=== PATIENT | female | born 1945 | race African-American/Black ===

== ENCOUNTER 2023-10-05 14:01 | Outpatient (AMB) | payer MEDICARE, SELFPAY ==
[2023-10-05 14:35] VITALS: BP 130/60; PULSE 85; O2SAT 98; BMI 43.7
--- NOTE | 2023-10-05 14:35 | HO.NEPHOV ---
Vital Signs 10/05/23 14:35 Height 5 ft 5 in Weight 262 lb 8 oz BMI 43.7 BP 130/60 Blood Pressure Location Lt brachial Position Sitting Pulse 85 Pulse Source Pulse Oximeter Pulse Oximetry (%) 98 Oxygen Delivery Method Room Air Intake Visit Reasons: CKD Scruff Worker Required: No Accompanied by: Self / Same As Patient Allergies No Known Allergies Allergy (Verified 10/05/23 14:00) HPI Comments Details: I had the pleasure of seeing Liana in follow up of her CKD, hypertension, anemia of Chronic kidney disease as well as secondary hyperparathyroidism. She has H/O high BMI but her weight has been stable. She claims to be compliant with her medications. She is not a diabetic. Her BP has been at goal. She denies any uremic symptoms, edema or orthostatic symptoms. She has no CP, SOB, PND, orthopnea, pedal edema. She does not take any excessive NSAID's. She has no new systemic complaints. [facility] Medical History (Updated 10/25/23 @ 17:05 by Roshan Elizalde MD) Hypertension Anemia in chronic kidney disease Chronic kidney disease, stage 3b Surgical History (Updated 10/05/23 @ 14:39 by Brianna Prieto MA) History of hysterectomy Family History (Updated 10/05/23 @ 14:40 by Brianna Prieto MA) Mother Heart disease Social History (Updated 10/05/23 @ 14:39 by Brianna Prieto MA) Alcohol intake: never Patient Tobacco Use Status: Never used Tobacco Physical Exam Vital Signs: Last Vital Signs Pulse 85 10/05/23 14:35 BP 130/60 10/05/23 14:35 Pulse Ox 98 10/05/23 14:35 Oxygen Delivery Method Room Air 10/05/23 14:35 BMI result Body Mass Index 43.7 Const General: comfortable and no acute distress Orientation/consciousness: patient oriented x3 HEENT Head: Yes normocephalic Mouth: Normal oral and palatal mucosa present Eyes EOM: EOMs intact bilaterally Neck Neck: Yes supple Resp Auscultation: clear to auscultation bilaterally Cardio Jugular venous distension: no JVD Rate: regular rate GI Palpation (GI): Soft to palpation Auscultation: normal bowel sounds General: Yes no CVA tenderness Back/Spine/Pelvis Back: no CVA tenderness Skin General skin exam: no rashes or lesions noted Neuro General: patient oriented x3 and moves all extremities Extrem General: Yes no pedal edema Results Reviewed Nephrology Results: Hgb 11.4 g/dl (12.0-16.0) L 10/05/23 WBC 11.5 X10*3/uL (4.8-10.8) H 10/05/23 Plt Count 332 X10*3/uL (160-400) 10/05/23 Sodium 137 mmol/L (135-145) 10/05/23 Potassium 3.7 mmol/L (3.3-5.1) 10/05/23 Chloride 106 mmol/L (96-108) 10/05/23 Carbon Dioxide 22 mmol/L (22-29) 10/05/23 BUN 16 mg/dL (9-16) 10/05/23 Creatinine 1.45 mg/dL (0.5-1.4) H 10/05/23 Calcium 9.5 mg/dL (8.4-10.2) 10/05/23 Phosphorus 2.3 mg/dL (2.7-4.5) L 10/05/23 PTH Intact 158.3 pg/mL (8.7-77.1) H 10/05/23 Assessment & Plan Assessment & Plan (1) Hypertension: Code(s): I10 - Essential (primary) hypertension Category: Medical Qualifiers: Hypertension type: primary hypertension Qualified Code(s): I10 - Essential (primary) hypertension (2) Anemia in chronic kidney disease: Code(s): N18.9 - Chronic kidney disease, unspecified; D63.1 - Anemia in chronic kidney disease Category: Medical Qualifiers: Chronic kidney disease stage: stage 3 (moderate) Chronic kidney disease stage 3 subtype: stage 3b (GFR 30-44) Qualified Code(s): N18.32 - Chronic kidney disease, stage 3b; D63.1 - Anemia in chronic kidney disease (3) Chronic kidney disease, stage 3b: Code(s): N18.32 - Chronic kidney disease, stage 3b Category: Medical (4) Secondary hyperparathyroidism (of renal origin): Code(s): N25.81 - Secondary hyperparathyroidism of renal origin Category: Medical (5) Hyperuricemia: Code(s): E79.0 - Hyperuricemia without signs of inflammatory arthritis and tophaceous disease Category: Medical Plan She has Stage 3 CKD from long standing hypertension on a backdrop of high BMI. Her renal functions are stable. Her BP is at goal. Her volume status is optimal. Her Hb is stable and doesn't warrant EPO. Her serum calcium is stable. She is on activated Vitamin D.She is on allopurinol which she is tolerating very well. I did not make any medications at this visit. I encouraged her to maintain good hydration and minimize NSAID's. I ordered follow up blood work and answered all questions. Further management is pending evolving data. F/U appointment given Orders: Orders Complete Blood Count Auto Diff 10/05/23 I10 - Essential (primary) hypertension, N18.9 - Chronic kidney disease, unspecified, D63.1 - Anemia in chronic kidney disease, N18.32 - Chronic kidney disease, stage 3b, N25.81 - Secondary hyperparathyroidism of renal origin Calcium 10/05/23 I10 - Essential (primary) hypertension, N18.9 - Chronic kidney disease, unspecified, D63.1 - Anemia in chronic kidney disease, N18.32 - Chronic kidney disease, stage 3b, N25.81 - Secondary hyperparathyroidism of renal origin Phosphorus 10/05/23 I10 - Essential (primary) hypertension, N18.9 - Chronic kidney disease, unspecified, D63.1 - Anemia in chronic kidney disease, N18.32 - Chronic kidney disease, stage 3b, N25.81 - Secondary hyperparathyroidism of renal origin Blood Urea Nitrogen 10/05/23 I10 - Essential (primary) hypertension, N18.9 - Chronic kidney disease, unspecified, D63.1 - Anemia in chronic kidney disease, N18.32 - Chronic kidney disease, stage 3b, N25.81 - Secondary hyperparathyroidism of renal origin Uric Acid 10/05/23 I10 - Essential (primary) hypertension, N18.9 - Chronic kidney disease, unspecified, D63.1 - Anemia in chronic kidney disease, N18.32 - Chronic kidney disease, stage 3b, N25.81 - Secondary hyperparathyroidism of renal origin UA and rflx microscopic 10/05/23 N25.81 - Secondary hyperparathyroidism of renal origin, I10 - Essential (primary) hypertension, N18.9 - Chronic kidney disease, unspecified, D63.1 - Anemia in chronic kidney disease, N18.32 - Chronic kidney disease, stage 3b IRON PROFILE 10/05/23 I10 - Essential (primary) hypertension, N18.9 - Chronic kidney disease, unspecified, D63.1 - Anemia in chronic kidney disease, N18.32 - Chronic kidney disease, stage 3b, N25.81 - Secondary hyperparathyroidism of renal origin Parathyroid Hormone Intact 10/05/23 I10 - Essential (primary) hypertension, N18.9 - Chronic kidney disease, unspecified, D63.1 - Anemia in chronic kidney disease, N18.32 - Chronic kidney disease, stage 3b, N25.81 - Secondary hyperparathyroidism of renal origin Creatinine 10/05/23 I10 - Essential (primary) hypertension, N18.9 - Chronic kidney disease, unspecified, D63.1 - Anemia in chronic kidney disease, N18.32 - Chronic kidney disease, stage 3b, N25.81 - Secondary hyperparathyroidism of renal origin Electrolytes 10/05/23 I10 - Essential (primary) hypertension, N18.9 - Chronic kidney disease, unspecified, D63.1 - Anemia in chronic kidney disease, N18.32 - Chronic kidney disease, stage 3b, N25.81 - Secondary hyperparathyroidism of renal origin Protein Creatinine Ratio, Ur 10/05/23 N25.81 - Secondary hyperparathyroidism of renal origin, I10 - Essential (primary) hypertension, N18.9 - Chronic kidney disease, unspecified, D63.1 - Anemia in chronic kidney disease, N18.32 - Chronic kidney disease, stage 3b
== END 2023-10-05 15:18 | disposition home or self-care (01) ==
PROVIDERS: PCP Hospitalist; Visit Provider Internal Medicine Nephrology
DX: I10 Essential (primary) hypertension (principal); N18.32 Chronic kidney disease, stage 3b; D63.1 Anemia in chronic kidney disease; N25.81 Secondary hyperparathyroidism of renal origin; E79.0 Hyperuricemia without signs of inflammatory arthritis and tophaceous disease
CPT/HCPCS: 99214

== ENCOUNTER → 2023-10-05 14:01 | Outpatient (BNVA) | payer MEDICARE, SELFPAY | PROVIDERS: PCP Hospitalist; Visit Provider Internal Medicine Nephrology ==

== ENCOUNTER 2023-10-05 15:01 | Outpatient (REF) | payer MEDICARE, SELFPAY ==
[2023-10-05 18:01] LABS: MANUAL DIFF FLAG NO
[2023-10-05 18:32] LABS: Anion Gap 13 (12-20); Blood Urea Nitrogen 16 mg/dL (9-16); Calcium 9.5 mg/dL (8.4-10.2); Carbon Dioxide 22 mmol/L (22-29); Chloride 106 mmol/L (96-108); Estimated Glomerular Filt Rate 35; Iron 75 mcg/dL (30-160); Percent Iron Saturation 43 % (15-50); Phosphorus 2.3 mg/dL (2.7-4.5); Potassium 3.7 mmol/L (3.3-5.1); Sodium 137 mmol/L (135-145); Total Iron Binding Capacity 173 mcg/dL (228-428); Unsaturated Iron Binding 98 ug/dL
[2023-10-05 18:38] LABS: Basophils Absolute Auto 0.1 X10*3/uL (0.0-0.2); Eosinophils Absolute Auto 0.3 X10*3/uL (0.0-0.4); Eosinophils Percent Auto 2.3 % (0-4); Hematocrit 36.9 % (37.0-47.0); Hemoglobin 11.4 g/dl (12.0-16.0); Imm Gran Abs Auto 0.03 X10*3/uL (0.00-0.03); Imm Gran Pct Auto 0.3 % (0.0-0.4); Lymphocytes Absolute Auto 2.9 X10*3/uL (1.2-4.9); Lymphocytes Percent Auto 25.1 % (20-40); Mean Corpuscular HGB Conc 30.9 g/dl (31.0-35.0); Mean Corpuscular Hemoglobin 23.5 pg (27.0-33.0); Mean Corpuscular Volume 76.1 fL (80.0-98.0); Mean Platelet Volume 12.4 fL (9.4-12.3); Monocytes Absolute Auto 0.7 X10*3/uL (0.1-1.2); Monocytes Percent Auto 5.7 % (2-11); Neutrophils Absolute Auto 7.6 x10*3/uL (2.0-8.3); Neutrophils Percent Auto 65.6 % (45-73); Platelet Count 332 X10*3/uL (160-400); Red Blood Count 4.85 X10*6/uL (4.20-5.50); Red Cell Distribution Width 15.9 % (11.0-16.0); White Blood Count 11.5 X10*3/uL (4.8-10.8)
[2023-10-05 18:41] LABS: Uric Acid 1.4 mg/dL (2.4-5.7)
[2023-10-05 18:42] LABS: Parathyroid Hormone Intact 158.3 pg/mL (8.7-77.1)
== END 2023-10-05 15:02 | disposition home or self-care (01) ==
LOC: HO.HKASLDS 15:01
PROVIDERS: Visit Provider Internal Medicine Nephrology
DX: I12.9 Hypertensive chronic kidney disease with stage 1 through stage 4 chronic kidney disease, or unspecified chronic kidney disease (principal); N18.32 Chronic kidney disease, stage 3b; D63.1 Anemia in chronic kidney disease; E79.0 Hyperuricemia without signs of inflammatory arthritis and tophaceous disease; N25.81 Secondary hyperparathyroidism of renal origin
CPT/HCPCS: 36415; 80051; 82310; 82565; 83540; 83970; 84100; 84520; 84550; 85025; 99212

== ENCOUNTER 2024-01-18 12:09 | Outpatient (AMB) | payer MEDICARE, SELFPAY ==
[2024-01-18 12:11] VITALS: BP 132/64; PULSE 88; O2SAT 96; BMI 41.9
--- NOTE | 2024-01-18 12:11 | HO.NEPHOV ---
Vital Signs 01/18/24 12:11 Height 5 ft 5 in Weight 252 lb BMI 41.9 BP 132/64 Blood Pressure Location Lt radial Position Sitting Pulse 88 Pulse Source Pulse Oximeter Pulse Oximetry (%) 96 Oxygen Delivery Method Room Air Intake Visit Reasons: 3 month F/U/ Conf Allergies No Known Allergies Allergy (Verified 01/18/24 12:13) HPI Comments Details: I had the pleasure of seeing Liana in follow up of her CKD, hypertension, anemia of Chronic kidney disease as well as secondary hyperparathyroidism. She has H/O high BMI but her weight has been stable. She claims to be compliant with her medications. She is not a diabetic. Her BP has been at goal. She denies any uremic symptoms, edema or orthostatic symptoms. She has no CP, SOB, PND, orthopnea, pedal edema. She does not take any excessive NSAID's. She has no new systemic complaints. [facility] Medical History (Updated 10/25/23 @ 17:05 by Roshan Elizalde MD) Hypertension Anemia in chronic kidney disease Chronic kidney disease, stage 3b Surgical History History of hysterectomy Family History Mother Heart disease Social History Alcohol intake: never Patient Tobacco Use Status: Never used Tobacco Review of Systems Const All systems reviewed & are unremarkable except as noted in HPI and below Physical Exam Vital Signs: Last Vital Signs Pulse 88 01/18/24 12:11 BP 132/64 01/18/24 12:11 Pulse Ox 96 01/18/24 12:11 Oxygen Delivery Method Room Air 01/18/24 12:11 BMI result Body Mass Index 41.9 Const General: comfortable and no acute distress Orientation/consciousness: patient oriented x3 HEENT Head: Yes normocephalic Mouth: Normal oral and palatal mucosa present Eyes EOM: EOMs intact bilaterally Neck Neck: Yes supple Resp Auscultation: clear to auscultation bilaterally Cardio Jugular venous distension: no JVD Rate: regular rate GI Palpation (GI): Soft to palpation Auscultation: normal bowel sounds General: Yes no CVA tenderness Back/Spine/Pelvis Back: no CVA tenderness Skin General skin exam: no rashes or lesions noted Neuro General: patient oriented x3 and moves all extremities Extrem General: Yes no pedal edema Results Reviewed Nephrology Results: Hgb 11.4 g/dl (12.0-16.0) L 10/05/23 WBC 11.5 X10*3/uL (4.8-10.8) H 10/05/23 Plt Count 332 X10*3/uL (160-400) 10/05/23 Sodium 137 mmol/L (135-145) 10/05/23 Potassium 3.7 mmol/L (3.3-5.1) 10/05/23 Chloride 106 mmol/L (96-108) 10/05/23 Carbon Dioxide 22 mmol/L (22-29) 10/05/23 BUN 16 mg/dL (9-16) 10/05/23 Creatinine 1.45 mg/dL (0.5-1.4) H 10/05/23 Calcium 9.5 mg/dL (8.4-10.2) 10/05/23 Phosphorus 2.3 mg/dL (2.7-4.5) L 10/05/23 PTH Intact 158.3 pg/mL (8.7-77.1) H 10/05/23 Assessment & Plan Assessment & Plan (1) Secondary hyperparathyroidism (of renal origin): Code(s): N25.81 - Secondary hyperparathyroidism of renal origin Category: Medical (2) Hyperuricemia: Code(s): E79.0 - Hyperuricemia without signs of inflammatory arthritis and tophaceous disease Category: Medical (3) Hypertension: Code(s): I10 - Essential (primary) hypertension Category: Medical Qualifiers: Hypertension type: primary hypertension Qualified Code(s): I10 - Essential (primary) hypertension (4) Anemia in chronic kidney disease: Code(s): N18.9 - Chronic kidney disease, unspecified; D63.1 - Anemia in chronic kidney disease Category: Medical Qualifiers: Chronic kidney disease stage: stage 3 (moderate) Chronic kidney disease stage 3 subtype: stage 3b (GFR 30-44) Qualified Code(s): N18.32 - Chronic kidney disease, stage 3b; D63.1 - Anemia in chronic kidney disease (5) Chronic kidney disease, stage 3b: Code(s): N18.32 - Chronic kidney disease, stage 3b Category: Medical Plan She has Stage 3 CKD from long standing hypertension on a backdrop of high BMI. Her renal functions are stable. Her BP is at goal. Her volume status is optimal. Her Hb is stable and doesn't warrant EPO. Her serum calcium is stable. She is on activated Vitamin D.She is on allopurinol which she is tolerating very well. I did not make any medications at this visit. I encouraged her to maintain good hydration and minimize NSAID's. I ordered follow up blood work and answered all questions. Further management is pending evolving data. F/U appointment given Orders: Orders Electrolytes Today N18.32 - Chronic kidney disease, stage 3b Calcium Today N18.32 - Chronic kidney disease, stage 3b Creatinine Today N18.32 - Chronic kidney disease, stage 3b Blood Urea Nitrogen Today N18.32 - Chronic kidney disease, stage 3b Coding Level of Care Code Est Pt Level 4 (54971) Diagnoses Secondary hyperparathyroidism (of renal origin) N25.81 Hyperuricemia E79.0 Primary hypertension I10 Hypertension type: primary hypertension Anemia in stage 3b chronic kidney disease N18.32; D63.1 Chronic kidney disease stage: stage 3 (moderate) Chronic kidney disease stage 3 subtype: stage 3b (GFR 30-44) Chronic kidney disease, stage 3b N18.32
== END 2024-01-18 12:29 | disposition home or self-care (01) ==
PROVIDERS: PCP Hospitalist; Visit Provider Internal Medicine Nephrology
DX: N25.81 Secondary hyperparathyroidism of renal origin (principal); E79.0 Hyperuricemia without signs of inflammatory arthritis and tophaceous disease; I10 Essential (primary) hypertension; N18.32 Chronic kidney disease, stage 3b; D63.1 Anemia in chronic kidney disease
CPT/HCPCS: 99214

== ENCOUNTER → 2024-01-18 12:09 | Outpatient (BNVA) | payer MEDICARE, SELFPAY | PROVIDERS: PCP Hospitalist; Visit Provider Internal Medicine Nephrology | DX: I12.9 Hypertensive chronic kidney disease with stage 1 through stage 4 chronic kidney disease, or unspecified chronic kidney disease (principal); N18.32 Chronic kidney disease, stage 3b; D63.1 Anemia in chronic kidney disease; N25.81 Secondary hyperparathyroidism of renal origin; E79.0 Hyperuricemia without signs of inflammatory arthritis and tophaceous disease | CPT/HCPCS: 99212 ==

== ENCOUNTER 2024-05-23 15:34 | Outpatient (AMB) | payer MEDICARE, SELFPAY ==
--- NOTE | 2024-05-23 15:36 | HO.NEPHOV_ITS ---
Vital Signs 05/23/24 15:37 Height 5 ft 5 in Weight 257 lb 2 oz BMI 42.8 BP 132/60 Blood Pressure Location Lt brachial Position Sitting Pulse 71 Pulse Source Pulse Oximeter Pulse Oximetry (%) 96 Oxygen Delivery Method Room Air Intake Visit Reasons: 4 mon follow up-Conf Waste Machine Tender Required: No Accompanied by: Self / Same As Patient Allergies No Known Allergies Allergy (Verified 05/23/24 15:37) HPI Comments Details: Liana was seen in follow up of her CKD, hypertension, anemia of Chronic kidney disease as well as secondary hyperparathyroidism. She is grieving from the loss of her sister in [facility]. She has H/O high BMI but her weight has been stable. She claims to be compliant with her medications. She is not a diabetic. Her BP has been at goal. She denies any uremic symptoms, edema or orthostatic symptoms. She has no CP, SOB, PND, orthopnea, pedal edema. She does not take any excessive NSAID's. She has no new systemic complaints. She has not had any blood work recently. [facility] Medical History (Updated 10/25/23 @ 17:05 by Roshan Elizalde MD) Hypertension Anemia in chronic kidney disease Chronic kidney disease, stage 3b Surgical History History of hysterectomy Family History Mother Heart disease Social History Alcohol intake: never Patient Tobacco Use Status: Never used Tobacco Review of Systems Const All systems reviewed & are unremarkable except as noted in HPI and below Physical Exam Vital Signs: Last Vital Signs Pulse 71 05/23/24 15:37 BP 132/60 05/23/24 15:37 Pulse Ox 96 05/23/24 15:37 Oxygen Delivery Method Room Air 05/23/24 15:37 BMI result Body Mass Index 42.8 Const General: comfortable and no acute distress Orientation/consciousness: patient oriented x3 HEENT Head: Yes normocephalic Mouth: Normal oral and palatal mucosa present Eyes EOM: EOMs intact bilaterally Neck Neck: Yes supple Resp Auscultation: clear to auscultation bilaterally Cardio Jugular venous distension: no JVD Rate: regular rate GI Palpation (GI): Soft to palpation Auscultation: normal bowel sounds General: Yes no CVA tenderness Back/Spine/Pelvis Back: no CVA tenderness Skin General skin exam: no rashes or lesions noted Neuro General: patient oriented x3 and moves all extremities Extrem General: Yes no pedal edema Results Reviewed Nephrology Results: Hgb 11.4 g/dl (12.0-16.0) L 10/05/23 WBC 11.5 X10*3/uL (4.8-10.8) H 10/05/23 Plt Count 332 X10*3/uL (160-400) 10/05/23 Sodium 137 mmol/L (135-145) 10/05/23 Potassium 3.7 mmol/L (3.3-5.1) 10/05/23 Chloride 106 mmol/L (96-108) 10/05/23 Carbon Dioxide 22 mmol/L (22-29) 10/05/23 BUN 16 mg/dL (9-16) 10/05/23 Creatinine 1.45 mg/dL (0.5-1.4) H 10/05/23 Calcium 9.5 mg/dL (8.4-10.2) 10/05/23 Phosphorus 2.3 mg/dL (2.7-4.5) L 10/05/23 PTH Intact 158.3 pg/mL (8.7-77.1) H 10/05/23 Assessment & Plan Assessment & Plan (1) Chronic kidney disease, stage 3b: Code(s): N18.32 - Chronic kidney disease, stage 3b Category: Medical (2) Anemia in chronic kidney disease: Code(s): N18.9 - Chronic kidney disease, unspecified; D63.1 - Anemia in chronic kidney disease Category: Medical Qualifiers: Chronic kidney disease stage: stage 3 (moderate) Chronic kidney disease stage 3 subtype: stage 3b (GFR 30-44) Qualified Code(s): N18.32 - Chronic kidney disease, stage 3b; D63.1 - Anemia in chronic kidney disease (3) Hypertension: Code(s): I10 - Essential (primary) hypertension Category: Medical Qualifiers: Hypertension type: primary hypertension Qualified Code(s): I10 - Essential (primary) hypertension (4) Secondary hyperparathyroidism (of renal origin): Code(s): N25.81 - Secondary hyperparathyroidism of renal origin Category: Medical (5) Hyperuricemia: Code(s): E79.0 - Hyperuricemia without signs of inflammatory arthritis and tophaceous disease Category: Medical Plan She has Stage 3 CKD from long standing hypertension on a backdrop of high BMI. Her renal functions had been stable. She has not had any blood work recently.Her BP is at goal. Her volume status is optimal. Her Hb had been stable and didn't warrant EPO by the last labs. Her serum calcium is stable. She is on activated Vitamin D.She is on allopurinol which she is tolerating very well. I did not make any medications at this visit. I encouraged her to maintain good hydration and minimize NSAID's. I ordered follow up blood work and answered all questions. F/U appointment given Orders: Orders Ferritin Today D63.1 - Anemia in chronic kidney disease, E79.0 - Hyperuricemia without signs of inflammatory arthritis and tophaceous disease, I10 - Essential (primary) hypertension, N18.32 - Chronic kidney disease, stage 3b, N25.81 - Secondary hyperparathyroidism of renal origin IRON PROFILE Today D63.1 - Anemia in chronic kidney disease, E79.0 - Hyperuricemia without signs of inflammatory arthritis and tophaceous disease, I10 - Essential (primary) hypertension, N18.32 - Chronic kidney disease, stage 3b, N25.81 - Secondary hyperparathyroidism of renal origin Creatinine Today D63.1 - Anemia in chronic kidney disease, E79.0 - Hyperuricemia without signs of inflammatory arthritis and tophaceous disease, I10 - Essential (primary) hypertension, N18.32 - Chronic kidney disease, stage 3b, N25.81 - Secondary hyperparathyroidism of renal origin Calcium Today D63.1 - Anemia in chronic kidney disease, E79.0 - Hyperuricemia without signs of inflammatory arthritis and tophaceous disease, I10 - Essential (primary) hypertension, N18.32 - Chronic kidney disease, stage 3b, N25.81 - Secondary hyperparathyroidism of renal origin Vitamin D 25-OH Total Today D63.1 - Anemia in chronic kidney disease, E79.0 - Hyperuricemia without signs of inflammatory arthritis and tophaceous disease, I10 - Essential (primary) hypertension, N18.32 - Chronic kidney disease, stage 3b, N25.81 - Secondary hyperparathyroidism of renal origin Phosphorus Today D63.1 - Anemia in chronic kidney disease, E79.0 - Hyperuricemia without signs of inflammatory arthritis and tophaceous disease, I10 - Essential (primary) hypertension, N18.32 - Chronic kidney disease, stage 3b, N25.81 - Secondary hyperparathyroidism of renal origin Complete Blood Count Auto Diff Today D63.1 - Anemia in chronic kidney disease, E79.0 - Hyperuricemia without signs of inflammatory arthritis and tophaceous disease, I10 - Essential (primary) hypertension, N18.32 - Chronic kidney disease, stage 3b, N25.81 - Secondary hyperparathyroidism of renal origin Blood Urea Nitrogen Today D63.1 - Anemia in chronic kidney disease, E79.0 - Hyperuricemia without signs of inflammatory arthritis and tophaceous disease, I10 - Essential (primary) hypertension, N18.32 - Chronic kidney disease, stage 3b, N25.81 - Secondary hyperparathyroidism of renal origin Electrolytes Today D63.1 - Anemia in chronic kidney disease, E79.0 - Hyperuricemia without signs of inflammatory arthritis and tophaceous disease, I10 - Essential (primary) hypertension, N18.32 - Chronic kidney disease, stage 3b, N25.81 - Secondary hyperparathyroidism of renal origin Parathyroid Hormone Intact Today D63.1 - Anemia in chronic kidney disease, E79.0 - Hyperuricemia without signs of inflammatory arthritis and tophaceous disease, I10 - Essential (primary) hypertension, N18.32 - Chronic kidney dise ase, stage 3b, N25.81 - Secondary hyperparathyroidism of renal origin Coding Level of Care Code Est Pt Level 4 (02084) Diagnoses Chronic kidney disease, stage 3b N18.32 Anemia in stage 3b chronic kidney disease N18.32; D63.1 Chronic kidney disease stage: stage 3 (moderate) Chronic kidney disease stage 3 subtype: stage 3b (GFR 30-44) Primary hypertension I10 Hypertension type: primary hypertension Secondary hyperparathyroidism (of renal origin) N25.81 Hyperuricemia E79.0
[2024-05-23 15:37] VITALS: BP 132/60; PULSE 71; O2SAT 96; BMI 42.8
== END 2024-05-23 16:07 | disposition home or self-care (01) ==
PROVIDERS: PCP Hospitalist; Visit Provider Internal Medicine Nephrology
DX: N18.32 Chronic kidney disease, stage 3b (principal); D63.1 Anemia in chronic kidney disease; I10 Essential (primary) hypertension; N25.81 Secondary hyperparathyroidism of renal origin; E79.0 Hyperuricemia without signs of inflammatory arthritis and tophaceous disease
CPT/HCPCS: 99214

== ENCOUNTER → 2024-05-23 15:34 | Outpatient (BNVA) | payer MEDICARE, SELFPAY | PROVIDERS: PCP Hospitalist; Visit Provider Internal Medicine Nephrology | DX: I12.9 Hypertensive chronic kidney disease with stage 1 through stage 4 chronic kidney disease, or unspecified chronic kidney disease (principal); N18.32 Chronic kidney disease, stage 3b; D63.1 Anemia in chronic kidney disease; N25.81 Secondary hyperparathyroidism of renal origin; E79.0 Hyperuricemia without signs of inflammatory arthritis and tophaceous disease | CPT/HCPCS: 99212 ==

== ENCOUNTER 2024-08-31 14:11 | Outpatient (REF) | payer MEDICARE, SELFPAY ==
--- OUTSIDE RECORDS SUMMARY | 2024-08-31 17:48 | XMS_ITS | Encounter Summary ---
Author Organization [facility] Address [address] [place] [address] Care Team Providers Care Tack Maker Name Role Phone Warner Boyer MD Primary Care Provider Mary Alice Gongora RN Unavailable [phone] Emery Mcintosh Unavailable Unavailable Nguyễn Frederick MD Primary Care Provider [phone] Jessee Garcia MD Primary Care Provider [phone] Nguyễn Frederick MD Primary Care Provider [phone] Encounter Details Date Type Department Care Team (Late st Contact Info) Description 09/30/2015 Scanned Document [address] [phone] Provider, Generic Social History Tobacco [...] on filedocumented in this encounter Care Teams Tack Maker Relationship Specialty Start Date End Date Warner Boyer MD PCP - General Internal Medicine 01/23/15 03/21/19 Nguyễn Frederick MD [address] [place] [address] PCP - General Internal Medicine 03/22/19 03/22/19 Jessee Garcia MD 34 [place] [address] PCP - General Family Medicine 10/24/20 01/28/21 Nguyễn Frederick MD [address] [address] PCP - General Internal Medicine 01/29/21 Mary Alice Roche, RN [address] [address] [facility] Community Pipe Wrapping Machine Operator 02/23/17 05/18/21 Emery Mcintosh [address] [place] [address] Ophthalmology 02/09/19 documented as of this encounter
--- OUTSIDE RECORDS SUMMARY | 2024-08-31 17:48 | XMS_ITS | Encounter Summary ---
Author Organization [facility] Address [address] [place] [address] Care Team Providers Care Print Controller Name Role Phone Warner Boyer MD Primary Care Provider Mary Alice Gongora RN Unavailable Emery Mcintosh Unavailable Unavailable Nguyễn Frederick MD Primary Care Provider [phone] Jessee Garcia MD Primary Care Provider [phone] Nguyễn Frederick MD Primary Care Provider [phone] Encounter Details Date Type Department Care Team (Late st Contact Info) Description 06/03/2015 Scanned Document [address] [phone] Provider, Generic Social History Tobacco Use Types [...] on filedocumented in this encounter Care Teams Print Controller Relationship Specialty Start Date End Date Warner Boyer MD PCP - General Internal Medicine 01/23/15 03/21/19 Nguyễn Frederick MD [address] [place] [address] PCP - General Internal Medicine 03/22/19 03/22/19 Jessee Garcia MD 34 [place] [address] PCP - General Family Medicine 10/24/20 01/28/21 Nguyễn Frederick MD [address] [place] [address] PCP - General Internal Medicine 01/29/21 Mary Alice Roche, DELGADO [address] [address] [facility] Community Range Operator 02/23/17 05/18/21 Emery Mcintosh [address] [place] [address] Ophthalmology 02/09/19 documented as of this encounter
--- OUTSIDE RECORDS SUMMARY | 2024-08-31 17:48 | XMS_ITS | Encounter Summary ---
Author Organization [facility] Address [address] [place] [address] Care Team Providers Care Print Shop Stenographer Name Role Phone Mary Alice Roche RN Unavailable Emery Mcintosh Unavailable Unavailable Jessee Garcia MD Primary Care Provider [phone] Nguyễn Frederick MD Primary Care Provider [phone] Encounter Details Date Type Department Care Team (Late st Contact Info) Description 01/28/2021 Scanned Document [facility] General Surgery [address] [phone] Ced Bustos MD [address] [place] [address] Social History Tobacco Use Types Packs/Day [...] filedocumented in this encounter Care Teams Print Shop Stenographer Relationship Specialty Start Date End Date Jessee Garcia MD [address] [place] [address] PCP - General Family Medicine 10/24/20 01/28/21 Nguyễn Frederick MD [address] [place] [address] PCP - General Internal Medicine 01/29/21 Mary Alice Roche, DELGADO [address] [address] [facility] Community Sprinkler Worker 02/23/17 05/18/21 Emery Mcintosh [address] [place] [address] Ophthalmology 02/09/19 documented as of this encounter
--- OUTSIDE RECORDS SUMMARY | 2024-08-31 17:49 | XMS_ITS | Encounter Summary ---
Author Organization [facility] Address [address] [place] [address] Care Team Providers Care Byproducts Operator Name Role Phone Warner Boyer MD Primary Care Provider Mary Alice Gongora RN Unavailable [phone] Emery Mcintosh Unavailable Unavailable Nguyễn Frederick MD Primary Care Provider [phone] Jessee Garcia MD Primary Care Provider [phone] Nguyễn Frederick MD Primary Care Provider [phone] Encounter Details Date Type Department Care Team (Late st Contact Info) Description 09/28/2017 Scanned Document [address] [phone] Provider, Generic Social History Tobacco [...] on filedocumented in this encounter Care Teams Byproducts Operator Relationship Specialty Start Date End Date Warner Boyer MD PCP - General Internal Medicine 01/23/15 03/21/19 Nguyễn Frederick MD [address] [place] [address] PCP - General Internal Medicine 03/22/19 03/22/19 Jessee Garcia MD [address] [place] [address] PCP - General Family Medicine 10/24/20 01/28/21 Nguyễn Frederick MD [address] [address] PCP - General Internal Medicine 01/29/21 Mary Alice Roche, RN [address] [address] [facility] Community Kitchen Supervisor 02/23/17 05/18/21 Emery Mcintosh [address] [place] [address] Ophthalmology 02/09/19 documented as of this encounter
--- OUTSIDE RECORDS SUMMARY | 2024-08-31 17:49 | XMS_ITS | Encounter Summary ---
Author Organization [facility] Address [address] [place] [address] Care Team Providers Care Unscrambler Name Role Phone Warner Boyer MD Primary Care Provider Mary Alice Gongora RN Unavailable [phone] Emery Mcintosh Unavailable Unavailable Nguyễn Frederick MD Primary Care Provider [phone] Jessee Garcia MD Primary Care Provider [phone] Nguyễn Frederick MD Primary Care Provider Encounter Details Date Type Department Care Team (Late st Contact Info) Description 05/31/2017 Scanned Document [address] [phone] Provider, Generic Social History Tobacco [...] on filedocumented in this encounter Care Teams Unscrambler Relationship Specialty Start Date End Date Warner Boyer MD PCP - General Internal Medicine 01/23/15 03/21/19 Nguyễn Frederick MD [address] [place] [address] PCP - General Internal Medicine 03/22/19 03/22/19 Jessee Garcia MD [address] [place] [address] PCP - General Family Medicine 10/24/20 01/28/21 Nguyễn Frederick MD [address] [address] PCP - General Internal Medicine 01/29/21 Mary Alice Roche, RN [address] [address] [facility] Community Malted Milk Masher 02/23/17 05/18/21 Emery Mcintosh [address] [place] [address] Ophthalmology 02/09/19 documented as of this encounter
--- OUTSIDE RECORDS SUMMARY | 2024-08-31 17:49 | XMS_ITS | Clinical Summary ---
Author Organization [employer] [facility] Address [address] [id number] Care Team Providers Care Testing And Regulating Chief Name Role Phone Nguyễn Frederick MD Primary Care Provider [phone] Allergies No known active allergies Medications Medication Sig Dispensed Refills Start Date End Date Status b complex vitamins capsule Take 1 capsule by mouth. 0 Active Cholecalciferol (DIALYVITE VITAMIN D3 MAX) 51999 units TABS Take by mouth. 0 Active [...] 0 03/04/2018 Active ergocalciferol (VITAMIN D2) capsule 78801 units 0 01/30/2015 Active ferrous sulfate 325 [...] age to complete this topic Care Teams Testing And Regulating Chief Relationship Specialty Start Date End Date Nguyễn Frederick MD [address] [place] [address] PCP - General Internal Medicine 01/02/19
--- OUTSIDE RECORDS SUMMARY | 2024-08-31 17:49 | XMS_ITS | Encounter Summary ---
Author Organization [facility] Address [address] [place] [address] Care Team Providers Care Sales Engineer Engineered Products Name Role Phone Warner Boyer MD Primary Care Provider Mary Alice Gongora RN Unavailable [phone] Emery Mcintosh Unavailable Unavailable Nguyễn Frederick MD Primary Care Provider [phone] eJssee Garcia MD Primary Care Provider [phone] Nguyễn Frederick MD Primary Care Provider [phone] Encounter Details Date Type Department Care Team (Late st Contact Info) Description 10/05/2016 Scanned Document [address] [phone] Provider, Generic Social History Tobacco [...] on filedocumented in this encounter Care Teams Sales Engineer Engineered Products Relationship Specialty Start Date End Date Warner Boyer MD PCP - General Internal Medicine 01/23/15 03/21/19 Nguyễn Frederick MD [address] [place] [address] PCP - General Internal Medicine 03/22/19 03/22/19 Jessee Garcia MD [address] [place] [address] PCP - General Family Medicine 10/24/20 01/28/21 Nguyễn Fredeirck MD [address] [address] PCP - General Internal Medicine 01/29/21 Mary Alice Roche, RN [address] [address] [facility] Community Geoduck Diver 02/23/17 05/18/21 Emery Mcintosh [address] [place] [address] Ophthalmology 02/09/19 documented as of this encounter
--- OUTSIDE RECORDS SUMMARY | 2024-08-31 17:49 | XMS_ITS | Encounter Summary ---
Author Organization [facility] Address [address] [place] [address] Care Team Providers Care Cs Associate Name Role Phone Warner Boyer MD Primary Care Provider Mary Alice Gongora RN Unavailable [phone] Emery Mcintosh Unavailable Unavailable Nguyễn Frederick MD Primary Care Provider [phone] Jessee Garcia MD Primary Care Provider [phone] Nguyễn Frederick MD Primary Care Provider [phone] Encounter Details Date Type Department Care Team (Late st Contact Info) Description 04/27/2016 Scanned Document [address] [phone] Provider, Generic Social History Tobacco [...] on filedocumented in this encounter Care Teams Cs Associate Relationship Specialty Start Date End Date Warner Boyer MD PCP - General Internal Medicine 01/23/15 03/21/19 Nguyễn Frederick MD [address] [place] [address] PCP - General Internal Medicine 03/22/19 03/22/19 Jessee Garcia MD [address] [place] [address] PCP - General Family Medicine 10/24/20 01/28/21 Nguyễn Frederick MD [address] [address] PCP - General Internal Medicine 01/29/21 Mary Alice Roche, RN [address] [address] [facility] Community Speech And Hearing Clinic Director 02/23/17 05/18/21 Emery Mcintosh [address] [place] [address] Ophthalmology 02/09/19 documented as of this encounter
--- OUTSIDE RECORDS SUMMARY | 2024-08-31 17:49 | XMS_ITS | Clinical Summary ---
Author Organization [facility] Address [address] [place] [address] Phone Care Team Providers Care Ferris Wheel Operator Name Role Phone Nguyễn Frederick MD Primary Care Provider [phone] Allergies No known active allergies Medications * [...] tablet 11 01/18/2023 Active ergocalciferol 1.25 MG (33866 UT) capsule TAKE ONE CAPSULE BY MOUTH ONCE A MONTH 3 capsule 10 07/08/2023 Active Active Problems Problem Noted Date Diagnosed Date Recurrent and persistent hem aturia with minimal change lesion 07/22/2021 Stage 3b chronic kidney disease 06/16/2021 Hypertension 03/17/2021 History of polyp of colon 12/24/2020 Overview (03/17/2021): Added automatically from request for surgery [id number] 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
--- OUTSIDE RECORDS SUMMARY | 2024-08-31 17:49 | XMS_ITS | Encounter Summary ---
Author Organization [facility] Address [address] [place] [address] Care Team Providers Care See Supervisor Name Role Phone Warner Boyer MD Primary Care Provider Mary Alice Gongora RN Unavailable [phone] Emery Mcintosh Unavailable Unavailable Nguyễn Frederick MD Primary Care Provider [phone] Jessee Garcia MD Primary Care Provider [phone] Nguyễn Frederick MD Primary Care Provider [phone] Reason for Visit * Reason Comments Medication Refill Encounter Details Date Type Department Care Team (Late st Contact Info) Description [address] [place] [phone] Warner Boyer MD Essential hypertension Social History [...] hypertension documented in this encounter Care Teams See Supervisor Relationship Specialty Start Date End Date Warner Boyer MD PCP - General Internal Medicine 01/23/15 03/21/19 Nguyễn Frederick MD [address] [place] [address] PCP - General Internal Medicine 03/22/19 03/22/19 Jessee Garcia MD [address] [place] [address] PCP - General Family Medicine 10/24/20 01/28/21 Nguyễn Frederick MD [address] [place] [address] PCP - General Internal Medicine 01/29/21 Mary Alice Roche, RN [address] [address] [facility] Community Thoracic Surgeon 02/23/17 05/18/21 Emery Mcintosh [address] [place] [address] Ophthalmology 02/09/19 documented as of this encounter
--- OUTSIDE RECORDS SUMMARY | 2024-08-31 17:49 | XMS_ITS | Clinical Summary ---
Author Organization [facility] Address [address] [place] [address] Care Team Providers Care Tower Truck Driver Name Role Phone Emery Mcintosh Unavailable Unavailable Ngyuễn Frederick MD Primary Care Provider [phone] Allergies No known active allergies Medications Medication Sig Dispensed Refills Start Date End Date Status ergocalciferol (VITAMIN D2,DRISDOL) 88011 units Cap 0 01/30/2015 Active traMADol (ULTRAM) [...] 10/12/2016 Active Cholecalciferol (DIALYVITE VITAMIN D3 MAX) 22234 units Tab Take by mouth. Active traMADol [...] tablet 03/30/2018 Active Sodium Sulfate-Mag Sulfate-KCl (Sutab) 5401-623-649 MG TabIndications:Person al history of colonic polyps Take 1 box by mouth 2 (two) times a day. 24 tablet 12/23/2020 Active Active Problems Problem Noted Date Diagnosed Date Personal history of colonic polyps 12/24/2020 Overview (12/24/2020): Added automatically from request for surgery [id number] Lipid disorder 05/26/2016 Encounter for health-related screening [...] standard practice guidelines of the ACR BI-RADS [place]. A reference guide is provided below. BREAST [...] Assessment Tool designed at the National [employer] [place] (NCI), are available to help health professionals [...] 5.9 4.0 - 6.0 % Lot Number [id number] Plastic Welder Pass Pass Blood specimen (specimen) 12/08/2017 8:56 AM EDT Warner Boyer MD POINT OF CARE TEST O [...] LDL-C. Dhruv SS et al. BENJAMIN. 2013;310(19): 0509-0344 (http://education.7fgame.Meta/faq/NPM670) Cholesterol/HDL Ratio 3.4 <5.0 (calc) [facility] [...] Performing Organization Information: ?Site ID: [id number] ?Name: [employer] ?Address: [address] [place] [address], [place] [address] ?Director: Niurka Whitfield MD Warner Boyer MD LAB BLOOD ORDERABLES [facility] [address], [place] [address] * (ABNORMAL) Chem 10 (12/06/2017 11:52 AM EDT) Albumin 4.0 3.6 - 5.1 g/dL [facility] Blood Urea Nitrogen (BUN) 30(H) 7 - 25 mg/dL [facility] Creatinine 2.16(H) 0.60 - 0.93 mg/dL [facility] Comment: For patients >49 years of age, the reference limit for Creatinine is approximately 13% higher for people identified as -[place]ong[place]ian. eGFR Non- 22(L) > OR = 60 [...] Performing Organization Information: ?Site ID: [id number] ?Name: [facility] ?Address: [address] [place] [address], [place] [address] ?Director: Niurka Whitfield MD Warner Boyer MD LAB BLOOD ORDERABLES [facility] [address], [place] [address] * DEXA Bone density-Hip/pelvis/spine w/fx eval (Axial) [...] 10:44 AM 12/23/2015 2:55 PM Care Teams Tower Truck Driver Relationship Specialty Start Date End Date Nguyễn Frederick MD [address] [place] [address] PCP - General Internal Medicine 01/29/21 Emery Mcintosh [address] [place] [address] Ophthalmology 02/09/19
--- OUTSIDE RECORDS SUMMARY | 2024-08-31 17:49 | XMS_ITS | Encounter Summary ---
Author Organization [facility] Address [address] [place] [address] Care Team Providers Care Maintenance Service Dispatcher Name Role Phone Warner Boyer MD Primary Care Provider Mary Alice Gongora RN Unavailable [phone] Emery Mcintosh Unavailable Unavailable Nguyễn Frederick MD Primary Care Provider [phone] Jessee Garcia MD Primary Care Provider [phone] Nguyễn Frederick MD Primary Care Provider [phone] Reason for Visit * Reason Comments Medication Refill Encounter Details Date Type Department Care Team (Late st Contact Info) Description 06/06/[address] [place] [phone] Warner Boyer MD Essential hypertension Social History [...] hypertension documented in this encounter Care Teams Maintenance Service Dispatcher Relationship Specialty Start Date End Date Warner Boyer MD PCP - General Internal Medicine 01/23/15 03/21/19 Nguyễn Frederick MD [address] [place] [address] PCP - General Internal Medicine 03/22/19 03/22/19 Jessee Garcia MD [address] [place] [address] PCP - General Family Medicine 10/24/20 01/28/21 Nguyễn Frederick MD [address] [place] [address] PCP - General Internal Medicine 01/29/21 Mary Alice Roche, RN [address] [address] [facility] Community Audio Visual Aide 02/23/17 05/18/21 Emery Mcintosh [address] [place] [address] Ophthalmology 02/09/19 documented as of this encounter
--- OUTSIDE RECORDS SUMMARY | 2024-08-31 17:49 | XMS_ITS | Encounter Summary ---
Author Organization [facility] Address [address] [place] [address] Care Team Providers Care Massage Therapist Name Role Phone Warner Boyer MD Primary Care Provider Mary Alice Gongora RN Unavailable [phone] Emery Mcintosh Unavailable Unavailable Nguyễn Frederick MD Primary Care Provider Jessee Garcia MD Primary Care Provider [phone] Nguyễn Frederick MD Primary Care Provider [phone] Encounter Details Date Type Department Care Team (Late st Contact Info) Description 01/06/2018 Scanned Document [address] [phone] Provider, Generic Social History [...] on filedocumented in this encounter Care Teams Massage Therapist Relationship Specialty Start Date End Date Warner Boyer MD PCP - General Internal Medicine 01/23/15 03/21/19 Nguyễn Frederick MD [address] [place] [address] PCP - General Internal Medicine 03/22/19 03/22/19 Jessee Garcia MD [address] [place] [address] PCP - General Family Medicine 10/24/20 01/28/21 Nguyễn Frederick MD [address] [address] PCP - General Internal Medicine 01/29/21 Mary Alice Roche, RN [address] [address] [facility] Community Chemical Detection Expert 02/23/17 05/18/21 Emery Mcintosh [address] [place] [address] Ophthalmology 02/09/19 documented as of this encounter
--- OUTSIDE RECORDS SUMMARY | 2024-08-31 17:49 | XMS_ITS | Encounter Summary ---
Author Organization [facility] Address [address] [place] [address] Care Team Providers Care Fifth Hand Name Role Phone Warner Boyer MD Primary Care Provider Mary Alice Gongora RN Unavailable [phone] Emery Mcintosh Unavailable Unavailable Nguyễn Frederick MD Primary Care Provider [phone] Jessee Garcia MD Primary Care Provider [phone] Nguyễn Frederick MD Primary Care Provider [phone] Reason for Visit * Reason Comments Medication Refill Encounter Details Date Type Department Care Team (Late st Contact Info) Description 10/15/[address] [place] [phone] Warner Boyer MD Insomnia Social History Tobacco [...] unspecified documented in this encounter Care Teams Fifth Hand Relationship Specialty Start Date End Date Warner Boyer MD PCP - General Internal Medicine 01/23/15 03/21/19 Nguyễn Frederick MD [address] [place] [address] PCP - General Internal Medicine 03/22/19 03/22/19 Jessee Garcia MD [address] [place] [address] PCP - General Family Medicine 10/24/20 01/28/21 Nguyễn Frederick MD [address] [place] [address] PCP - General Internal Medicine 01/29/21 Mary Alice Roche, DELGADO [address] [address] [facility] Community Certified Hand Therapist 02/23/17 05/18/21 Emery Mcintosh [address] [place] [address] Ophthalmology 02/09/19 documented as of this encounter
--- OUTSIDE RECORDS SUMMARY | 2024-08-31 17:49 | XMS_ITS | Encounter Summary ---
Author Organization [facility] Address [address] [place] [address] Care Team Providers Care Certified Travel Counselor Name Role Phone Warner Boyer MD Primary Care Provider Mary Alice Gongora RN Unavailable [phone] Emery Mcintosh Unavailable Unavailable Nguyễn Frederick MD Primary Care Provider [phone] Jessee Garcia MD Primary Care Provider [phone] Nguyễn Frederick MD Primary Care Provider [phone] Encounter Details Date Type Department Care Team (Late st Contact Info) Description 05/12/2018 Scanned Document [address] [phone] Provider, Generic Social History Tobacco [...] on filedocumented in this encounter Care Teams Certified Travel Counselor Relationship Specialty Start Date End Date Warner Boyer MD PCP - General Internal Medicine 01/23/15 03/21/19 Nguyễn Frederick MD [address] [place] [address] PCP - General Internal Medicine 03/22/19 03/22/19 Jessee Garcia MD [address] [place] [address] PCP - General Family Medicine 10/24/20 01/28/21 Nguyễn Frederick MD [address] [address] PCP - General Internal Medicine 01/29/21 Mary Alice Roche, RN [address] [address] [facility] Community Hotel Staff Member 02/23/17 05/18/21 Emery Mcintosh [address] [place] [address] Ophthalmology 02/09/19 documented as of this encounter
--- OUTSIDE RECORDS SUMMARY | 2024-08-31 17:49 | XMS_ITS | Encounter Summary ---
Author Organization [facility] Address [address] [place] [address] Care Team Providers Care Coat Padder Name Role Phone Warner Boyer MD Primary Care Provider Mary Alice Gongora RN Unavailable Emery Mcintosh Unavailable Unavailable Nguyễn Frederick MD Primary Care Provider [phone] Jessee Garcia MD Primary Care Provider [phone] Nguyễn Frederick MD Primary Care Provider [phone] Encounter Details Date Type Department Care Team (Late st Contact Info) Description 01/13/2016 Scanned Document [address] [phone] Provider, Generic Social History Tobacco Use Types [...] on filedocumented in this encounter Care Teams Coat Padder Relationship Specialty Start Date End Date Warner Boyer MD PCP - General Internal Medicine 01/23/15 03/21/19 Nguyễn Frederick MD [address] [place] [address] PCP - General Internal Medicine 03/22/19 03/22/19 Jessee Garcia MD [address] [place] [address] PCP - General Family Medicine 10/24/20 01/28/21 Nguyễn Frederick MD [address] [place] [address] PCP - General Internal Medicine 01/29/21 Mary Alice Roche, DELG[place]O [address] [address] [facility] Community Go Cart Mechanic 02/23/17 05/18/21 Emery Mcintosh [address] [place] [address] Ophthalmology 02/09/19 documented as of this encounter
[2024-08-31 18:22] LABS: MANUAL DIFF FLAG NO
[2024-08-31 18:28] LABS: Basophils Absolute Auto 0.1 X10*3/uL (0.0-0.2); Basophils Percent Auto 0.8 % (0-2); Eosinophils Absolute Auto 0.3 X10*3/uL (0.0-0.4); Eosinophils Percent Auto 2.5 % (0-4); Hematocrit 35.1 % (37.0-47.0); Hemoglobin 10.6 g/dl (12.0-16.0); Imm Gran Abs Auto 0.06 X10*3/uL (0.00-0.03); Imm Gran Pct Auto 0.5 % (0.0-0.4); Lymphocytes Absolute Auto 1.6 X10*3/uL (1.2-4.9); Lymphocytes Percent Auto 13.8 % (20-40); Mean Corpuscular HGB Conc 30.2 g/dl (31.0-35.0); Mean Corpuscular Hemoglobin 22.8 pg (27.0-33.0); Mean Corpuscular Volume 75.6 fL (80.0-98.0); Mean Platelet Volume 10.9 fL (9.4-12.3); Monocytes Percent Auto 8.5 % (2-11); Neutrophils Absolute Auto 8.7 x10*3/uL (2.0-8.3); Neutrophils Percent Auto 73.9 % (45-73); Platelet Count 308 X10*3/uL (160-400); Red Blood Count 4.64 X10*6/uL (4.20-5.50); Red Cell Distribution Width 16.6 % (11.0-16.0); White Blood Count 11.8 X10*3/uL (4.8-10.8)
[2024-08-31 18:54] LABS: Parathyroid Hormone Intact 137.9 pg/mL (8.7-77.1)
[2024-08-31 18:56] LABS: Anion Gap 13 (12-20); Blood Urea Nitrogen 26 mg/dL (9-16); Calcium 9.5 mg/dL (8.4-10.2); Carbon Dioxide 22 mmol/L (22-29); Chloride 107 mmol/L (96-108); Estimated Glomerular Filt Rate 27; Iron 27 mcg/dL (30-160); Percent Iron Saturation 15 % (15-50); Phosphorus 3.3 mg/dL (2.7-4.5); Potassium 4.2 mmol/L (3.3-5.1); Sodium 138 mmol/L (135-145); Total Iron Binding Capacity 185 mcg/dL (228-428); Unsaturated Iron Binding 158 ug/dL
[2024-08-31 19:02] LABS: Vitamin D 25-OH Total 18.7 ng/mL (>30)
[2024-08-31 19:34] LABS: Ferritin 2216 ng/mL (10-250)
== END 2024-08-31 14:12 | disposition home or self-care (01) ==
LOC: HO.HKASLDS 14:11
PROVIDERS: PCP Hospitalist; Visit Provider Internal Medicine Nephrology
DX: E79.0 Hyperuricemia without signs of inflammatory arthritis and tophaceous disease (principal); N25.81 Secondary hyperparathyroidism of renal origin; I10 Essential (primary) hypertension; N18.32 Chronic kidney disease, stage 3b; D63.1 Anemia in chronic kidney disease
CPT/HCPCS: 36415; 80051; 82306; 82310; 82565; 82728; 83540; 83970; 84100; 84520; 85025; 99212

== ENCOUNTER 2024-08-31 14:11 | Outpatient (AMB) | payer MEDICARE, SELFPAY ==
[2024-08-31 14:21] VITALS: BP 160/60; PULSE 111; O2SAT 97; BMI 42.8
--- NOTE | 2024-08-31 14:21 | HO.NEPHOV_ITS ---
Vital Signs 08/31/24 14:21 Height 5 ft 5 in Weight 257 lb BMI 42.8 BP 160/60 H Blood Pressure Location Rt brachial Position Sitting Pulse 111 H Pulse Source Pulse Oximeter Pulse Oximetry (%) 97 Oxygen Delivery Method Room Air Intake Visit Reasons: Follow up Allergies No Known Allergies Allergy (Verified 08/31/24 14:21) HPI Comments Details: Liana was seen in follow up of her CKD, hypertension, anemia of Chronic kidney disease as well as secondary hyperparathyroidism. She has H/O high BMI but her weight has been stable. She claims to be compliant with her medications. She is not a diabetic. Her BP has been at goal. She denies any uremic symptoms, edema or orthostatic symptoms. She has no CP, SOB, PND, orthopnea, pedal edema. She does not take any excessive NSAID's. She has no new systemic complaints. She has not had any blood work recently. [facility] Medical History (Updated 10/25/23 @ 17:05 by Roshan Elizalde MD) Hypertension Anemia in chronic kidney disease Chronic kidney disease, stage 3b Surgical History History of hysterectomy Family History Mother Heart disease Social History Alcohol intake: never Patient Tobacco Use Status: Never used Tobacco Review of Systems Const All systems reviewed & are unremarkable except as noted in HPI and below Physical Exam Const General: comfortable and no acute distress Orientation/consciousness: patient oriented x3 HEENT Head: Yes normocephalic Mouth: Normal oral and palatal mucosa present Eyes EOM: EOMs intact bilaterally Neck Neck: Yes supple Resp Auscultation: clear to auscultation bilaterally Cardio Jugular venous distension: no JVD Rate: regular rate GI Palpation (GI): Soft to palpation Auscultation: normal bowel sounds General: Yes no CVA tenderness Back/Spine/Pelvis Back: no CVA tenderness Skin General skin exam: no rashes or lesions noted Neuro General: patient oriented x3 and moves all extremities Extrem General: Yes no pedal edema Results Reviewed Nephrology Results: Hgb 11.4 g/dl (12.0-16.0) L 10/05/23 WBC 11.5 X10*3/uL (4.8-10.8) H 10/05/23 Plt Count 332 X10*3/uL (160-400) 10/05/23 Sodium 137 mmol/L (135-145) 10/05/23 Potassium 3.7 mmol/L (3.3-5.1) 10/05/23 Chloride 106 mmol/L (96-108) 10/05/23 Carbon Dioxide 22 mmol/L (22-29) 10/05/23 BUN 16 mg/dL (9-16) 10/05/23 Creatinine 1.45 mg/dL (0.5-1.4) H 10/05/23 Calcium 9.5 mg/dL (8.4-10.2) 10/05/23 Phosphorus 2.3 mg/dL (2.7-4.5) L 10/05/23 PTH Intact 158.3 pg/mL (8.7-77.1) H 10/05/23 Assessment & Plan Assessment & Plan (1) Hyperuricemia: Code(s): E79.0 - Hyperuricemia without signs of inflammatory arthritis and tophaceous disease Category: Medical (2) Secondary hyperparathyroidism (of renal origin): Code(s): N25.81 - Secondary hyperparathyroidism of renal origin Category: Medical (3) Hypertension: Code(s): I10 - Essential (primary) hypertension Category: Medical Qualifiers: Hypertension type: primary hypertension Qualified Code(s): I10 - Essential (primary) hypertension (4) Anemia in chronic kidney disease: Code(s): N18.9 - Chronic kidney disease, unspecified; D63.1 - Anemia in chronic kidney disease Category: Medical Qualifiers: Chronic kidney disease stage: stage 3 (moderate) Chronic kidney disease stage 3 subtype: stage 3b (GFR 30-44) Qualified Code(s): N18.32 - Chronic kidney disease, stage 3b; D63.1 - Anemia in chronic kidney disease (5) Chronic kidney disease, stage 3b: Code(s): N18.32 - Chronic kidney disease, stage 3b Category: Medical Plan She has Stage 3 CKD from long standing hypertension on a backdrop of high BMI. Her renal functions had been stable. She has not had any blood work recently.Her BP is at goal. Her volume status is optimal. Her Hb had been stable and didn't warrant EPO by the last labs. Her serum calcium is stable. She is on activated Vitamin D.She is on allopurinol which she is tolerating very well. I did not make any medications at this visit. I encouraged her to maintain good hydration and minimize NSAID's. I ordered follow up blood work and answered all questions. F/U appointment given Orders: Orders Complete Blood Count Auto Diff 3 Months D63.1 - Anemia in chronic kidney disease, E79.0 - Hyperuricemia without signs of inflammatory arthritis and tophaceous disease, I10 - Essential (primary) hypertension, N18.32 - Chronic kidney disease, stage 3b, N25.81 - Secondary hyperparathyroidism of renal origin Ferritin 3 Months D63.1 - Anemia in chronic kidney disease, E79.0 - Hyperuricemia without signs of inflammatory arthritis and tophaceous disease, I10 - Essential (primary) hypertension, N18.32 - Chronic kidney disease, stage 3b, N25.81 - Secondary hyperparathyroidism of renal origin Electrolytes 3 Months D63.1 - Anemia in chronic kidney disease, E79.0 - Hyperuricemia without signs of inflammatory arthritis and tophaceous disease, I10 - Essential (primary) hypertension, N18.32 - Chronic kidney disease, stage 3b, N25.81 - Secondary hyperparathyroidism of renal origin Creatinine 3 Months D63.1 - Anemia in chronic kidney disease, E79.0 - Hyperuricemia without signs of inflammatory arthritis and tophaceous disease, I10 - Essential (primary) hypertension, N18.32 - Chronic kidney disease, stage 3b, N25.81 - Secondary hyperparathyroidism of renal origin Vitamin D 25-OH Total 3 Months D63.1 - Anemia in chronic kidney disease, E79.0 - Hyperuricemia without signs of inflammatory arthritis and tophaceous disease, I10 - Essential (primary) hypertension, N18.32 - Chronic kidney disease, stage 3b, N25.81 - Secondary hyperparathyroidism of renal origin Parathyroid Hormone Intact 3 Months D63.1 - Anemia in chronic kidney disease, E79.0 - Hyperuricemia without signs of inflammatory arthritis and tophaceous disease, I10 - Essential (primary) hypertension, N18.32 - Chronic kidney disea se, stage 3b, N25.81 - Secondary hyperparathyroidism of renal origin IRON PROFILE 3 Months D63.1 - Anemia in chronic kidney disease, E79.0 - Hyperuricemia without signs of inflammatory arthritis and tophaceous disease, I10 - Essential (primary) hypertension, N18.32 - Chronic kidney disease, stage 3b, N25.81 - Secondary hyperparathyroidism of renal origin Calcium 3 Months D63.1 - Anemia in chronic kidney disease, E79.0 - Hyperuricemia without signs of inflammatory arthritis and tophaceous disease, I10 - Essential (primary) hypertension, N18.32 - Chronic kidney disease, stage 3b, N25.81 - Secondary hyperparathyroidism of renal origin Blood Urea Nitrogen 3 Months D63.1 - Anemia in chronic kidney disease, E79.0 - Hyperuricemia without signs of inflammatory arthritis and tophaceous disease, I10 - Essential (primary) hypertension, N18.32 - Chronic kidney disease, stage 3b, N25.81 - Secondary hyperparathyroidism of renal origin Phosphorus 3 Months D63.1 - Anemia in chronic kidney disease, E79.0 - Hyperuricemia without signs of inflammatory arthritis and tophaceous disease, I10 - Essential (primary) hypertension, N18.32 - Chronic kidney disease, stage 3b, N25.81 - Secondary hyperparathyroidism of renal origin Coding Level of Care Code Est Pt Level 4 (54930) Diagnoses Hyperuricemia E79.0 Secondary hyperparathyroidism (of renal origin) N25.81 Primary hypertension I10 Hypertension type: primary hypertension Anemia in stage 3b chronic kidney disease N18.32; D63.1 Chronic kidney disease stage: stage 3 (moderate) Chronic kidney disease stage 3 subtype: stage 3b (GFR 30-44) Chronic kidney disease, stage 3b N18.32
--- NOTE | 2024-08-31 14:21 | HO.NEPHOV ---
Vital Signs 08/31/24 14:21 Height 5 ft 5 in Weight 257 lb BMI 42.8 BP 160/60 H Blood Pressure Location Rt brachial Position Sitting Pulse 111 H Pulse Source Pulse Oximeter Pulse Oximetry (%) 97 Oxygen Delivery Method Room Air Intake Visit Reasons: Follow up Level Vial Curvature Gauger Required: No Accompanied by: Self / Same As Patient Allergies No Known Allergies Allergy (Verified 08/31/24 14:21) PFSH Medical History (Updated 10/25/23 @ 17:05 by Roshan Elizalde MD) Hypertension Anemia in chronic kidney disease Chronic kidney disease, stage 3b Surgical History History of hysterectomy Family History Mother Heart disease Social History Alcohol intake: never Patient Tobacco Use Status: Never used Tobacco Results Reviewed Nephrology Results: Hgb 11.4 g/dl (12.0-16.0) L 10/05/23 WBC 11.5 X10*3/uL (4.8-10.8) H 10/05/23 Plt Count 332 X10*3/uL (160-400) 10/05/23 Sodium 137 mmol/L (135-145) 10/05/23 Potassium 3.7 mmol/L (3.3-5.1) 10/05/23 Chloride 106 mmol/L (96-108) 10/05/23 Carbon Dioxide 22 mmol/L (22-29) 10/05/23 BUN 16 mg/dL (9-16) 10/05/23 Creatinine 1.45 mg/dL (0.5-1.4) H 10/05/23 Calcium 9.5 mg/dL (8.4-10.2) 10/05/23 Phosphorus 2.3 mg/dL (2.7-4.5) L 10/05/23 PTH Intact 158.3 pg/mL (8.7-77.1) H 10/05/23 Coding
--- OUTSIDE RECORDS SUMMARY | 2024-08-31 17:17 | XMS_ITS | Encounter Summary ---
Author Organization [facility] Address [address] [place] [address] Care Team Providers Care Ocularist Name Role Phone Warner Boyer MD Primary Care Provider Mary Alice Gongora RN Unavailable Emery Mcintosh Unavailable Unavailable Nguyễn Frederick MD Primary Care Provider [phone] Jessee Garcia MD Primary Care Provider [phone] Nguyễn Frederick MD Primary Care Provider [phone] Encounter Details Date Type Department Care Team (Late st Contact Info) Description 06/03/2015 Scanned Document [address] [phone] Provider, Generic Social History Tobacco Use Types Packs/Day Years Used Date Smoking Tobacco: Former Comments:end date unknown Alcohol Use Standard Drinks/Week Comments No 0 (1 standard drink = 0.6 oz pur e alcohol) Sex and Gender Information Value Date Recorded Sex Assigned at Not on file Gender Identity Not on file Sexual Orientation Not on file documented as of this encounter Plan of Treatment Not on file documented as of this encounter Procedures Procedure Name Priority Date/Time Associated Diagnosis Comments ULTRASOUND EXTERNAL RESULT 06/27/2015 documented in this encounter Results * ULTRASOUND EXTERNAL RESULT (06/27/2015) Anatomical Region Laterality Modality Ultrasound Narrative 07/14/2015 11:59 PM EST Ordered by an unspecified provider. Generic Provider IMG US ORDERABLES documented in this encounter Visit Diagnoses Not on filedocumented in this encounter Care Teams Ocularist Relationship Specialty Start Date End Date Warner Boyer MD PCP - General Internal Medicine 01/23/15 03/21/19 Nguyễn Frederick MD [address] [place] [address] PCP - General Internal Medicine 03/22/19 03/22/19 Jessee Garcia MD [address] [place] [address] PCP - General Family Medicine 10/24/20 01/28/21 Nguyễn Frederick MD [address] [place] [address] PCP - General Internal Medicine 01/29/21 Mary Alice Roche, DELGADO [address] [address] [facility] Community Prison Librarian 02/23/17 05/18/21 Emery Mcintosh [address] [place] [address] Ophthalmology 02/09/19 documented as of this encounter
--- OUTSIDE RECORDS SUMMARY | 2024-08-31 17:17 | XMS_ITS ---
Author Organization [facility] Address [address] [facility] [address] [place] [address] Care Team Providers Care Logistics Intern Name Role Phone RAY ROBERTSON Primary Care Provider [phone] REASON FOR VISIT Appt Request/Refill Medications Medication SIG (Take, Route, Fr equency, Duration) Notes Start Date End Date Status Carvedilol 25 MG 1 tablet with food O rally twice a day for 90 days Active Encounters Encounter Location Date Provider Diagnosis [facility] [address] [facility] [address] [place] [address] 07/25/2024 RAY ROBERTSON Essential (primary) hypertension I10 Assessments Encounter Date Diagnosis (ICD Code) Assessment Notes Treatment Notes Treatment Clinical Notes Section Notes 07/25/2024 Essential (primary) hypertension (ICD-10 - I10) Plan Of Treatment Medication Medication Name Sig Start Date Stop Date Notes Carvedilol 25 MG 1 tablet with food O rally twice a day for 90 days Next Appt Details Provider Name:Fuad Harvey, 0 09/01/2024 02:30:00 PM, [address] [facility] [address], [place], [address], Progress Notes * DUANE LINDSEY MDOB:[birth year] (78 yo F)Acc No.[id number]:07/25/2024 Patient:?DUANE LINDSEY :1945???Age:78 Y???Sex:Female Address:[address], [place] [address] * Refills? Refill Carvedilol Tablet, 25 MG, Orally, 180, 1 tablet with food, twice a day, 90 days, Refills=0 * true * Date:? Generated for Stephanie barros/Luci/Bitaitting on:?08/31/2024 05:17 PM EST
--- OUTSIDE RECORDS SUMMARY | 2024-08-31 17:17 | XMS_ITS | Encounter Summary ---
Author Organization [facility] Address [address] [place] [address] Care Team Providers Care Preschool Assistant Principal Name Role Phone Warner Boyer MD Primary Care Provider Mary Alice Gongora RN Unavailable [phone] Emery Mcintosh Unavailable Unavailable Nguyễn Frederick MD Primary Care Provider [phone] Jessee Garcia MD Primary Care Provider [phone] Nguyễn Frederick MD Primary Care Provider [phone] Encounter Details Date Type Department Care Team (Late st Contact Info) Description 09/30/2015 Scanned Document [address] [address] Provider, Generic Social History Tobacco Use Types [...] on file documented as of this encounter Visit Diagnoses Not on filedocumented in this encounter Care Teams Preschool Assistant Principal Relationship Specialty Start Date End Date Warner Boyer MD PCP - General Internal Medicine 01/23/15 03/21/19 Nguyễn Frederick MD [address] [place] [address] PCP - General Internal Medicine 03/22/19 03/22/19 Jessee Garcia MD [address] [place] [address] PCP - General Family Medicine 10/24/20 01/28/21 Nguyễn Frederick MD [address] [address] PCP - General Internal Medicine 01/29/21 Mary Alice Roche, RN [address] [address] [facility] Community Rig Hand 02/23/17 05/18/21 Emery Mcintosh [address] [place] [address] Ophthalmology 02/09/19 documented as of this encounter
--- OUTSIDE RECORDS SUMMARY | 2024-08-31 17:18 | XMS_ITS | Clinical Summary ---
Author Organization [facility] Address [address] [place] [address] Phone Care Team Providers Care Architectural Modeler Name Role Phone Nguyễn Frederick MD Primary Care Provider [phone] Allergies No known active allergies Medications * This document contains information received from the source organization and may not represent a complete record from that organization. allopurinol (ZYLOPRIM) 300 MG tablet Take 1 tablet by mouth 1 (one) time each day Active amitriptyline (ELAVIL) 100 MG tablet Take 1 tablet by mouth at bed time Active atorvastatin (LIPITOR) 10 MG tablet Take 1 tablet by mouth 1 (one) time each day Active calcitriol (ROCALTROL) 0.25 MCG capsule Take 1 capsule by mouth every other day 09/05/2018 Active carvedilol (COREG) 25 MG tablet Take 1 tablet by mouth in the morning and 1 tablet in the evening. 06/05/2022 Active FeroSul 325 (65 Fe) MG tablet TAKE ONE TABLET BY MOUTH TWICE A DAY 60 tablet 11 01/18/2023 Active ergocalciferol 1.25 MG (58403 UT) capsule TAKE ONE CAPSULE BY MOUTH ONCE A MONTH 3 capsule 10 07/08/2023 Active Active Problems Problem Noted Date Diagnosed Date Recurrent and persistent hem aturia with minimal change lesion 07/22/2021 Stage 3b chronic kidney disease 06/16/2021 Hypertension 03/17/2021 History of polyp of colon 12/24/2020 Overview (03/17/2021): Added automatically from request for surgery [id number] 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 Vitamin D deficiency 08/26/2020 Anemia in chronic kidney disease 10/06/2013 Essential hypertension 10/06/2013 Chronic kidney disease, Stage IV (severe) 2013 Resolved Problems Problem Noted Date Diagnosed Date Resolved Date Chronic gouty arthritis 08/26/202011/03 Disorder of skin and/or subcutaneous tissue 08/26/2020 11/25/2020 Mixed hyperlipidemia 08/26/2020 021 Cardiac murmur 08/26/2020 11/25/2020 Shoulder joint pain 08/26/2020 11/26/19 21 Adhesive capsulitis of right shoulder 02/10/2019 11/25/2020 Internal impingement of right shoulder 02/10/2019 11/25/2020 Disorder of lipid metabolism 05/26/2016 11/25/2020 Swelling of limb 06/17/2015 11/25/2020 Arthropathy 10/06/2013 11/25/2020 Congestive heart failure 10/06/2013 Derangement of knee 10/06/2013 11/26/19 21 Gout 10/06/2013 11/25/2020 Obesity 10/06/2013 11/25/2020 Spinal stenosis 10/06/2013 11/25/2020 Type 2 diabetes mellitus 09/25/2013 Immunizations Name Administration Dates Next Due Influenza TIV (IM) 07/05/2013 Family History Medical History Relation Comments Gout Mother Heart disease Mother Hypertension Mother Hypertension Sibling 1 Gout Sibling 2 Stroke Sibling 3 Relation Status Comments Father Mother Sibling 1 Sibling 2 Sibling 3 Social History Tobacco Use Types Packs/Day Years Used Date Smoking Tobacco: Never Smokeless Tobacco: Never Tobacco Cessation:Counseling Given: Not Answered Alcohol Use Standard Drinks/Week Comments No 0 (1 standard drink = 0.6 oz pur e alcohol) Comments Unknown Sex and Gender Information Value Date Recorded Sex Assigned at Not on file Legal Sex Female 5:10 PM EST Gender Identity Not on file Sexual Orientation Not on file Last Filed Vital Signs Vital Sign Reading Time Taken Comments Blood Pressure 134/60 12/17/2022 2:42 PM EDT Pulse 77 12/17/2022 2:42 PM EDT Temperature - - Respiratory Rate - - Oxygen Saturation 95% 03/05/2022 2:57 PM EDT Inhaled Oxygen Concentration - - Weight 132 kg (290 lb 3.2 oz) 12/17/2022 2:42 PM EDT Height 165.1 cm (5' 5 ) 01/16/2020 12:00 PM EDT Body Mass Index 48.29 01/16/2020 12:00 PM EDT Plan of Treatment Health Maintenance Due Date Last Done Comments Pneumococcal Vaccine: 65+ Ye ars (1 of 2 - PCV) 1951 Influenza Vaccine (#1) 2024 07/05/2013 Colorectal Cancer Screening: Colonoscopy Discontinued 01/29/2021 Hepatitis B Vaccine Aged Out No longe r eligible based on patient's age to complete this topic Insurance [employer] MCR ADV PPO ([id number]) [employer] MCR ADV PPO ([id number]) Care Teams Architectural Modeler Relationship Specialty Start Date End Date Nguyễn Frederick MD [address] [place] [phone] PCP - General Internal Medicine 11/25/20
--- OUTSIDE RECORDS SUMMARY | 2024-08-31 17:18 | XMS_ITS | Encounter Summary ---
Author Organization [facility] Address [address] [place] [address] Care Team Providers Care Singeing Torch Operator Name Role Phone Warner Boyer MD Primary Care Provider Mary Alice Gongora RN Unavailable [phone] Emery Mcintosh Unavailable Unavailable Nguyễn Frederick MD Primary Care Provider [phone] Jessee Garcia MD Primary Care Provider [phone] Nguyễn Frederick MD Primary Care Provider [phone] Encounter Details Date Type Department Care Team (Late st Contact Info) Description 10/05/2016 Scanned Document [address] [address] Provider, Generic Social History Tobacco Use Types Packs/Day Years Used Date Smoking Tobacco: Former Smokeless Tobacco: Current Comments:end date unknown Alcohol Use Standard Drinks/Week [...] on filedocumented in this encounter Care Teams Singeing Torch Operator Relationship Specialty Start Date End Date Warner Boyer MD PCP - General Internal Medicine 01/23/15 03/21/19 Nguyễn Frederick MD [address] [place] [address] PCP - General Internal Medicine 03/22/19 03/22/19 Jessee Garcia MD [address] [place] [address] PCP - General Family Medicine 10/24/20 01/28/21 Nguyễn Frederick MD [address] [address] PCP - General Internal Medicine 01/29/21 Mary Alice Roche, RN [address] [address] [facility] Community Senior Systems Software Engineer 02/23/17 05/18/21 Emery Mcintosh [address] [place] [address] Ophthalmology 02/09/19 documented as of this encounter
--- OUTSIDE RECORDS SUMMARY | 2024-08-31 17:18 | XMS_ITS | Patient Health Record ---
Author Organization [facility] Address [address] [facility] [address] [place] [address] Care Team Providers Care Jde Developer Name Role Phone Nguyễn Frederick Primary Care Provider Unavailabl e Allergies No Known Allergies Reason For Referral No Information Medications Medication SIG (Take, Route, Frequency, Duration) Notes Start Date End Date Status Iron 325 (65 Fe) MG 1 tablet Orally Once a day Unknown Vitamin D 50 MCG (1999) 1 tablet Oral ly Once a day Unknown Carvedilol 12.5 MG 1 tablet with food Orally Twice a day Unknown Calcitriol 0.25 MCG 1 capsule Orally Onc e a day Unknown Allopurinol 300 MG 1 tablet Orally Once a day Unknown Atorvastatin Calcium 10 MG 1 tablet Oral ly Once a day Unknown Plan Of Treatment No Information Insurance Providers Payer Name Payer Address Payer Phone Subscriber Number Group Number Insured Name Patient Relationship to Insured Coverage Start Date Coverage End Date [facility] [address] [place] [address] [phone] [id number] Liana Mayes Self - patient is the insured Medical (General) History Medical History History ICD Code hypertension, benign hyperlipidemia Gout chronic kidney disease stage III class III obesity vitamin d deficiency osteoarthritid Surgical History Surgery Date(Month/Year) hysterectomy, total with bilateral salpi boss-oophorectomy (BSO) right ankle surgery bone spur in left shoulder carpal tunnel release in each hand
--- OUTSIDE RECORDS SUMMARY | 2024-08-31 17:18 | XMS_ITS | Patient Health Record ---
Author Organization [facility] Address [address] [place] [address] Care Team Providers Care Mixer Operator Raw Salt Name Role Phone RAY ROBERTSON Primary Care Provider Allergies No Known Allergies Reason For Referral No Information Medications Medication SIG (Take, Route, Frequency, Duration) Notes Start Date End Date Status amLODIPine Besylate 10 MG 1 tablet Orall y Once a day for 30 days 03/23/2023 Active Atorvastatin Calcium 10 MG 1 tablet Oral ly Once a day for 90 days Active Carvedilol 25 MG 1 tablet with food O rally twice a day for 90 days Active Calcitriol 0.25 MCG 1 capsule Orally harsh ry other day for 30 days Active Allopurinol 300 MG 1 tablet Orally Once a day for 90 days Active Diclofenac Sodium 3 % 1 application Exte rnally Twice a day for 30 days 08/19/2022 Active Iron 325 (65 Fe) MG 1 tablet Orally twic e daily Active Immunizations Vaccine Route Administration Date Status Comme nts COVID Moderna Unknown 12/03/2020 Administered COVID Moderna Unknown 01/06/2021 Administered COVID Moderna Unknown 07/23/2021 Administered Social History Tobacco Use: Social History Observation Description Date Details (start date - stop date) Former Smoker NA - NA Tobacco Use/Smoking Question Answer Notes Are you a former smoker How long has it been since you last smoked? > 10 years Alcohol Screen (Audit-C) Question Answer Notes Did you have a drink containing alcohol in the p ast year? No Points 0 Interpretation Negative Problems Problem Type SNOMED Code ICD Code Onset Dates Problem Status W/U Status Risk Notes Problem Vitamin D deficiency (40111272) Vitamin D deficiency, unspecified (E55.9) Active confirmed Problem Morbid obesity (disorder) (706445184) Morbid (severe) obesity due to excess calories (E66.01) Active confirmed Problem Mixed hyperlipidemia (246090492) Mixed hyperlipidemia (E78.2) Active confirmed Problem Essential hypertension (58151063) Essential (primary) hypertension (I10) Active confirmed Problem Disorder of skin AND/OR subcutaneous tissue (03889647) Disorder of the skin and subcutaneous tissue, unspecified (L98.9) Active confirmed Problem Chronic gouty arthritis (18276273) Chronic gout, unspecified, without tophus (tophi) (M1A.9XX0) Active confirmed Problem Pain of right shoulder region (finding) (4414802709) Pain in right shoulder (M25.511) Active confirmed Problem Left side sciatica (428001753317880) Sciatica, left side (M54.32) Active confirmed Problem Chronic kidney disease (359547007) Chronic kidney disease, unspecified (N18.9) Active confirmed Problem Cardiac murmur, unspecified (R01.1) Active confirmed Vital Signs Heart Rate 102 /min 09/23/2023 Temperature 97.4 degrees Fahrenheit 09/23/2023 Blood pressure diastolic 70 mm Hg 09/23/2023 Oximetry 93 % 09/23/2023 Height 64 in 09/23/2023 Blood pressure systolic 162 mm Hg 09/23/2023 Weight 269.9 lbs 09/23/2023 BMI 46.32 kg/m2 09/23/2023 Encounters Encounter Location Date Provider Diagnosis [address] [place] [address] 10/07/2023 RAY ROBERTSON [facility] [address] [facility] [address] [place] [address] 09/23/2023 RAY ROBERTSON Essential (primary) hypertension I10 ; Mixed hyperlipidemia E78.2 ; Chronic gout, unspecified, without tophus (tophi) M1A.9XX0 ; Morbid (severe) obesity due to excess calories E66.01 and Dietary counseling and surveillance Z71.[address] [place] [address] 09/01/2023 RAY ROBERTSON Essential (primary) hypertension I10 [address] [place] [address] 10/13/2023 BELL TINAL [address] [place] [address] 10/19/2023 RAY ROBERTSON Hyperlipidemia, unspecified E78.[address] [place] [address] 01/12/2024 RAY ROBERTSON Chronic kidney disea se, stage 3 (moderate) N18.[address] [place] [address] 06/23/2024 BELL AILYN [address] [place] [address] 07/25/2024 RAY ROBERTSON Essential (primary) hypertension I10 Assessments Encounter Date Diagnosis (ICD Code) Assessment Notes Treatment Notes Treatment Clinical Notes Section Notes 09/01/2023 Essential (primary) hypertension (ICD-10 - I10) 09/23/2023 Mixed hyperlipidemia (ICD-10 - E78.2) Liana is a 77-year-old lady with CKD stage III and she follows up with Dr. Elizalde, hypertension, hyperlipidemia and gout here for follow up. Her blood pressure is running high in the office today. She took her blood pressure pill this morning. Plan is as follows: Hypertension with chronic kidney disease. Blood pressure running high in the office today. Cut back on sodium intake. Advised appropriate hydration, cardio exercises and weight loss. Increase amlodipine to 10 MG and continue Carvedilol 25 MG twice a day. Hyperlipidemia. Last lipid panel within normal limits. Continue Atorvastatin 10 MG at night. 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 She is on Calcitriol. Chronic kidney disease stage 4. She is stable and does not appear to be in volume overload. Advised appropriate hydration. Avoid NSAIDs. She sees Cici Qureshi. Keep blood pressure under control. Gout. Uric acid levels normal. Continue on Allopurinol 300 MG daily. Morbid obesity. She lost 7 lbs since last visit. Advised dietary restrictions and regimental exercise. Goal is to lose 5-6 lbs a month. Blood work reviewed with patient and questions answered. Screening blood work before next appointment. General health concerns discussed with patient. Scribe services used to formulate this note under HIPAA compliance and under [place] law mandated for scribe services. Patient aware of service. Verbal consent and written consent taken from the patient. Patient understands and verbalizes understanding of the scribes services and all questions answered regarding scribes services. Patient agrees to use of scribes services. 09/23/2023 Essential (primary) hypertension (ICD-10 - I10) Liana is a 77-year-old lady with CKD stage III and she follows up with Dr. Elizalde, hypertension, hyperlipidemia and gout here for follow up. Her blood pressure is running high in the office today. She took her blood pressure pill this morning. Plan is as follows: Hypertension with chronic kidney disease. Blood pressure running high in the office today. Cut back on sodium intake. Advised appropriate hydration, cardio exercises and weight loss. Increase amlodipine to 10 MG and continue Carvedilol 25 MG twice a day. Hyperlipidemia. Last lipid panel within normal limits. Continue Atorvastatin 10 MG at night. 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 She is on Calcitriol. Chronic kidney disease stage 4. She is stable and does not appear to be in volume overload. Advised appropriate hydration. Avoid NSAIDs. She sees Cici Qureshi. Keep blood pressure under control. Gout. Uric acid levels normal. Continue on Allopurinol 300 MG daily. Morbid obesity. She lost 7 lbs since last visit. Advised dietary restrictions and regimental exercise. Goal is to lose 5-6 lbs a month. Blood work reviewed with patient and questions answered. Screening blood work before next appointment. General health concerns discussed with patient. Scribe services used to formulate this note under HIPAA compliance and under [place] law mandated for scribe services. Patient aware of service. Verbal consent and written consent taken from the patient. Patient understands and verbalizes understanding of the scribes services and all questions answered regarding scribes services. Patient agrees to use of scribes services. 10/19/2023 Hyperlipidemia, unspecified (ICD-10 - E78.5) 01/12/2024 Chronic kidney disease, stage 3 (moderate) (ICD-10 - N18.3) 07/25/2024 Essential (primary) hypertension (ICD-10 - I10) 09/23/2023 Chronic gout, unspecified, without tophus (tophi) (ICD-10 - M1A.9XX0) Liana is a 77-year-old lady with CKD stage III and she follows up with Dr. Elizalde, hypertension, hyperlipidemia and gout here for follow up. Her blood pressure is running high in the office today. She took her blood pressure pill this morning. Plan is as follows: Hypertension with chronic kidney disease. Blood pressure running high in the office today. Cut back on sodium intake. Advised appropriate hydration, cardio exercises and weight loss. Increase amlodipine to 10 MG and continue Carvedilol 25 MG twice a day. Hyperlipidemia. Last lipid panel within normal limits. Continue Atorvastatin 10 MG at night. 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 She is on Calcitriol. Chronic kidney disease stage 4. She is stable and does not appear to be in volume overload. Advised appropriate hydration. Avoid NSAIDs. She sees Cici Qureshi. Keep blood pressure under control. Gout. Uric acid levels normal. Continue on Allopurinol 300 MG daily. Morbid obesity. She lost 7 lbs since last visit. Advised dietary restrictions and regimental exercise. Goal is to lose 5-6 lbs a month. Blood work reviewed with patient and questions answered. Screening blood work before next appointment. General health concerns discussed with patient. Scribe services used to formulate this note under HIPAA compliance and under [place] law mandated for scribe services. Patient aware of service. Verbal consent and written consent taken from the patient. Patient understands and verbalizes understanding of the scribes services and all questions answered regarding scribes services. Patient agrees to use of scribes services. 09/23/2023 Morbid (severe) obesity due to excess calories (ICD-10 - E66.01) Liana is a 77-year-old lady with CKD stage III and she follows up with Dr. Elizalde, hypertension, hyperlipidemia and gout here for follow up. Her blood pressure is running high in the office today. She took her blood pressure pill this morning. Plan is as follows: Hypertension with chronic kidney disease. Blood pressure running high in the office today. Cut back on sodium intake. Advised appropriate hydration, cardio exercises and weight loss. Increase amlodipine to 10 MG and continue Carvedilol 25 MG twice a day. Hyperlipidemia. Last lipid panel within normal limits. Continue Atorvastatin 10 MG at night. 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 She is on Calcitriol. Chronic kidney disease stage 4. She is stable and does not appear to be in volume overload. Advised appropriate hydration. Avoid NSAIDs. She sees Cici Qureshi. Keep blood pressure under control. Gout. Uric acid levels normal. Continue on Allopurinol 300 MG daily. Morbid obesity. She lost 7 lbs since last visit. Advised dietary restrictions and regimental exercise. Goal is to lose 5-6 lbs a month. Blood work reviewed with patient and questions answered. Screening blood work before next appointment. General health concerns discussed with patient. Scribe services used to formulate this note under HIPAA compliance and under [place] law mandated for scribe services. Patient aware of service. Verbal consent and written consent taken from the patient. Patient understands and verbalizes understanding of the scribes services and all questions answered regarding scribes services. Patient agrees to use of scribes services. 09/23/2023 Dietary counseling and surveillance (ICD-10 - Z71.3) Liana is a 77-year-old lady with CKD stage III and she follows up with Dr. Elizalde, hypertension, hyperlipidemia and gout here for follow up. Her blood pressure is running high in the office today. She took her blood pressure pill this morning. Plan is as follows: Hypertension with chronic kidney disease. Blood pressure running high in the office today. Cut back on sodium intake. Advised appropriate hydration, cardio exercises and weight loss. Increase amlodipine to 10 MG and continue Carvedilol 25 MG twice a day. Hyperlipidemia. Last lipid panel within normal limits. Continue Atorvastatin 10 MG at night. 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 She is on Calcitriol. Chronic kidney disease stage 4. She is stable and does not appear to be in volume overload. Advised appropriate hydration. Avoid NSAIDs. She sees Cici Qureshi. Keep blood pressure under control. Gout. Uric acid levels normal. Continue on Allopurinol 300 MG daily. Morbid obesity. She lost 7 lbs since last visit. Advised dietary restrictions and regimental exercise. Goal is to lose 5-6 lbs a month. Blood work reviewed with patient and questions answered. Screening blood work before next appointment. General health concerns discussed with patient. Scribe services used to formulate this note under HIPAA compliance and under [place] law mandated for scribe services. Patient aware of service. Verbal consent and written consent taken from the patient. Patient understands and verbalizes understanding of the scribes services and all questions answered regarding scribes services. Patient agrees to use of scribes services. Plan Of Treatment Pending Test Test Name Order Date X ray : Shoulder, right 12/20/2018 Electrocardiogram (EKG) 08/02/2018 Vitamin D, 25-Hydroxy 08/23/2018 Future Test Test Name Order Date COMPREHENSIVE METABOLIC PANEL 01/20/2022 LIPID PANEL 01/20/2022 MICROALBUMIN, URINE 01/20/2022 T4, FREE 01/20/2022 TSH 01/20/2022 URIC ACID 01/20/2022 MICROALBUMIN, URINE 12/17/2022 TSH 12/17/2022 URIC ACID 12/17/2022 Albumin/Creatinine Ratio,Urine-[id number] Lipid Panel-[id number] 09/23/2023 Comp. Metabolic Panel [id number] 2023 Next Appt Details Provider Name:Fuad Harvey, 0 09/01/2024 02:30:00 PM, [address] [place] [address], [phone], Insurance Providers Payer Name Payer Address Payer Phone Subscriber Number Group Number Insured Name Patient Relationship to Insured Coverage Start Date Coverage End Date [employer] [address] [address] [place] [address] [id number] LIANA LINDSEY Self - patient is the insured Medicare [address] [place] [address] [id number] CÉSARLIANA Self - patient is the insured 0 Medical (General) History Medical History History ICD Code hypertension, benign hyperlipidemia Gout Chronic kidney disease stage III and see Dr Elizalde Class III obesity Vitamin D deficiency Osteoarthritis. She sees Dr. Blas Secondary hypoparathyroidism Surgical History Surgery Date(Month/Year) hysterectomy, total with rajiv ateral salpingo-oophorectomy (BSO) Dr. Yeung right ankle surgery bone spur in left shoulder carpal tunnel release in each hand cataract extraction Hospitalization History Reason Date(Month/Year)
--- OUTSIDE RECORDS SUMMARY | 2024-08-31 17:18 | XMS_ITS | Clinical Summary ---
Author Organization [facility] Address [address] [id number] Care Team Providers Care Sculpture Conservator Name Role Phone Nguyễn Frederick MD Primary Care Provider [phone] Allergies No known active allergies Medications Medication Sig Dispensed Refills Start Date End Date Status b complex vitamins capsule Take 1 capsule by mouth. 0 Active Cholecalciferol (DIALYVITE VITAMIN D3 MAX) 43839 units TABS Take by mouth. 0 Active fluorometholone (FML) 0.1 % ophthalmic suspension Apply 1 drop to eye. 0 10/12/2016 Active allopurinol (ZYLOPRIM) 300 MG tablet TAKE 1 TABLET EVERY DAY. 0 12/20/2017 Active amitriptyline (ELAVIL) 100 MG tablet Take 100 mg by mouth. 0 03/30/2018 Active atorvastatin (LIPITOR) tablet 10 mg TAKE ONE TABLET BY MOUTH EVERY DAY 0 12/06/2017 Active calcitRIOL (ROCALTROL) capsule 0.25 mcg TAKE ONE CAPSULE(S) EVERY 48 HOURS 0 10/09/2016 Active carvedilol (COREG) 12.5 MG tablet Take 12.5 mg by mouth. 0 03/04/2018 Active ergocalciferol (VITAMIN D2) capsule 40554 units 0 01/30/2015 Active ferrous sulfate 325 (65 FE) MG tablet Take by mouth. 0 Act natasha traMADol (ULTRAM) 50 MG tablet Take 50 mg by mouth. 0 03/05/2017 Active Lifitegrast (XIIDRA) 5 % SOLN INSTILL 1 DROP IN EACH EYE TWO TIMES A DAY DIRECTED 0 10/15/2016 Active Active Problems Problem Noted Date Diagnosed Date Internal impingement of right shoulder 9 Adhesive capsulitis of right shoulder 02/10/2019 Family History Medical History Relation Name Comments Clotting disorder Mother Heart disease Mother Clotting disorder Sister Relation Name Status Comments Mother Sister Social History Tobacco Use Types Packs/Day Years Used Date Smoking Tobacco: Never Smokeless Tobacco: Never Alcohol Use Standard Drinks/Week Comments No 0 (1 standard drink = 0.6 oz pur e alcohol) Sex and Gender Information Value Date Recorded Sex Assigned at Not on file Gender Identity Not on file Sexual Orientation Not on file Last Filed Vital Signs Vital Sign Reading Time Taken Comments Blood Pressure - - Pulse - - Temperature - - Respiratory Rate - - Oxygen Saturation - - Inhaled Oxygen Concentration - - Weight 122.5 kg (270 lb) 02/10/2019 9:51 AM EDT Height 165.1 cm (5' 5 ) 02/10/2019 9:51 AM EDT Body Mass Index 44.93 02/10/2019 9:51 AM EDT Plan of Treatment Health Maintenance Due Date Last Done Comments Hepatitis C Screening 1945 COVID-19 Vaccine (#1) 06/06/1946 Depression Screening 1958 BMI Counseling 1964 Preventative Health Evaluation 1964 DTap / Tdap / Td (1 - Tdap) 1965 Shingrix-Zoster Vaccine (1 of 2) 1996 Fall Risk Assessment 12/06/2011 Osteoporosis Screening (DEXA Scan) 12/06/2011 Pneumococcal Vaccine (1 of 1 - PCV) 12/06/2011 RSV Adult > 60+ Yrs or Pregn ant (1 - 1-dose 75+ series) 2021 Influenza Vaccine (#1) 2024 07/05/2013 Hepatitis B Vaccines Aged Out No long er eligible based on patient's age to complete this topic RSV Ped < 20 months Aged Out No longe r eligible based on patient's age to complete this topic Care Teams Sculpture Conservator Relationship Specialty Start Date End Date Nguyễn Frederick MD [address] [place] [address] PCP - General Internal Medicine 01/02/19
--- OUTSIDE RECORDS SUMMARY | 2024-08-31 17:18 | XMS_ITS | Clinical Summary ---
Author Organization [facility] Address [address] [place] [address] Care Team Providers Care Building Maintenance Superintendent Name Role Phone Emery Mcintosh Unavailable Unavailable Nguyễn Frederick MD Primary Care Provider [phone] Allergies No known active allergies Medications Medication Sig Dispensed Refills Start Date End Date Status ergocalciferol (VITAMIN D2,DRISDOL) 86550 units Cap 0 01/30/2015 Active traMADol (ULTRAM) 50 MG tabletIndications:Acu te pain of right knee Take 1 tablet (50 mg total) by mouth 3 times daily (every 8 hours) as needed for moderate pain. 30 tablet 0 11/10/2016 Active XIIDRA 5 % Solution INSTILL 1 DROP IN EACH EYE TWO TIMES A DAY DIRECTED 0 10/15/2016 Active fluorometholone (FML LIQUIFILM) 0.1 % ophthalmic suspension INSTILL 1 DROP IN EACH EYE FOUR TIMES A DAY 0 10/15/2016 Active calcitRIOL (ROCALTROL) 0.25 MCG capsule TAKE ONE CAPSULE(S) EVERY 48 HOURS 12 10/09/2016 Active B Complex Vitamins (VITAMIN B COMPLEX PO) Take 1 capsule by mouth. Active ferrous sulfate 325 (65 FE) MG tablet Take by mouth. Act natasha fluorometholone (FML LIQUIFILM) 0.1 % ophthalmic suspension Apply 1 drop to eye. 10/12/2016 Active Cholecalciferol (DIALYVITE VITAMIN D3 MAX) 03519 units Tab Take by mouth. Active traMADol (ULTRAM) 50 MG tabletIndications:Low er extremity pain, diffuse, right Take 1 tablet (50 mg total) by mouth 3 times daily (every 8 hours) as needed for moderate pain. 20 tablet 03/05/2017 Active atorvastatin (LIPITOR) 10 MG tabletIndications:Ess ential hypertension TAKE ONE TABLET BY MOUTH EVERY DAY 90 tablet 3 12/06/2017 Active allopurinol (ZYLOPRIM) 300 MG tabletIndications:Gou t, unspecified cause, unspecified chronicity, unspecified site TAKE 1 TABLET EVERY DAY. 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 60 tablet 5 03/04/2018 Active amitriptyline (ELAVIL) 100 MG tabletIndications:Dep ression, unspecified depression type Take 1 tablet (100 mg total) by mouth nightly. 90 tablet 03/30/2018 Active Sodium Sulfate-Mag Sulfate-KCl (Sutab) 7589-996-195 MG TabIndications:Person al history of colonic polyps Take 1 box by mouth 2 (two) times a day. 24 tablet 12/23/2020 Active Active Problems Problem Noted Date Diagnosed Date Personal history of colonic polyps 12/24/2020 Overview (12/24/2020): Added automatically from request for surgery [id number] Lipid disorder 05/26/2016 Encounter for health-related screening 6 Overview (04/06/2023): Regulatory diagnosis update for 04/04/23 Swelling of extremity, left 06/17/2015 Anemia in chronic kidney disease 10/06/2013 Arthropathy 10/06/2013 Congestive heart failure 10/06/2013 Gout 10/06/2013 Essential hypertension 10/06/2013 Internal derangement of knee 10/06/2013 Obesity 10/06/2013 Spinal stenosis 10/06/2013 Chronic kidney disease, stage IV (severe) 2013 Type II diabetes mellitus with renal manifestati ons 09/25/2013 Resolved Problems Problem Noted Date Diagnosed Date Resolved Date Other and unspecified hyperlipidemia 10/06/2013 05/26/2016 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 05/26/2016 Immunizations Name Administration Dates Next Due Covid-19 mRNA Primary Series Vaccine - Moderna 0.5 mL Full Dose 01/06/2021,12/03/2020 Influenza (AFLURIA/FLUZONE) Inactivated/Split Quadrivalent with Preservative IM 07/05/2013 Influenza Inactivated/Split Preservative Free IM 07/05/9998,07/04/2199 Family History Medical History Relation Name Comments Other Father gunshot wound Heart failure Mother congestive hea rt failure Breast cancer Sister Diabetes Unknown relationship un known Relation Name Status Comments Father Mother Sister Unknown Social History Tobacco Use Types Packs/Day Years Used Date Smoking Tobacco: Former Cigarettes 1 10 1 8 1987 Smokeless Tobacco: Never Tobacco Cessation:Ready to Q uit: No Comments:end date unknown Alcohol Use Standard Drinks/Week Comments No 0 (1 standard drink = 0.6 oz pur e alcohol) Sex and Gender Information Value Date Recorded Sex Assigned at Not on file Gender Identity Not on file Sexual Orientation Not on file Last Filed Vital Signs Vital Sign Reading Time Taken Comments Blood Pressure 108/67 01/29/2021 10:37 AM EDT Pulse 72 01/29/2021 10:37 AM EDT Temperature 35.8 ??C (96.5 ??F) 01/29/2021 7:41 AM ED T Respiratory Rate 20 01/29/2021 10:37 AM EDT Oxygen Saturation 96% 01/29/2021 10:37 AM EDT Inhaled Oxygen Concentration - - Weight 126 kg (278 lb) 01/29/2021 7:41 AM EDT Height 165.1 cm (5' 5 ) 01/29/2021 7:41 AM EDT Body Mass Index 46.26 01/29/2021 7:41 AM EDT Plan of Treatment Health Maintenance Due Date Last Done Comments Hepatitis C Virus Screening 1945 Ophthalmology Exam 1956 DTaP/Tdap/Td Vaccines (1 - Tdap) 1965 Pneumococcal Vaccines 50+ (1 of 2 - PCV) 1965 Zoster (Shingles) Vaccine (1 of 2) 1996 Microalbumin/Creatinine Ratio Urine 07/21/2013 07/21/2012 DXA Bone Density (Females,Ages 65 and older) 12/26/2017 12/27/2015 Hemoglobin A1C 06/09/2018 12/08/2017, 06/0 10/2017, 11/24/2016, Additional history exists Creatinine with GFR 12/06/2018 12/06/2017, 11/24/2016, 05/26/2016, Additional history exists Foot Exam 12/06/2018 12/06/2017 Lipid Panel 12/06/2018 12/06/2017, 05/06, 02/06/2014, Additional history exists RSV Vaccine 60 years and older and Patients (1 - 1-dose 75+ series) 2021 Influenza Vaccine 02/03/2024 05/30/4578, , 07/05/2013 COVID-19 Vaccine ( season) 2024 01/06/2021, 12/03/2020 Mammogram Discontinued 03/22/2019, 02/03, 02/09/2017, Additional history exists Colonoscopy Discontinued 01/29/2021, 12/04 (Previously Completed), 12/23/2015 Hepatitis B Vaccines Aged Out No long er eligible based on patient's age to complete this topic Procedures Procedure Name Priority Date/Time Associated Diagnosis Comments MM MAMMO SCREENING W/ TOMOSYNTHESIS BILATERAL Routine 03/22/2019 2:38 PM EDT Screening for breast cancer POCT GLYCOSYLATED HEMOGLOBIN (HGB A1C) Routine 12/08/2017 8:56 AM EDT Type 2 diabetes mellitus with stage 2 chronic kidney disease, without long-term current use of insulin (HCC) LIPID PANEL WITH NONHDL Routine 12/06/2017 11:52 AM EDT Routine medical exam Hyperlipidemia, unspecified hyperlipidemia type CHEM 10 Routine 12/06/2017 11:52 AM EDT Routine medical exam Fatigue, unspecified type DEXA BONE DENSITY HIP/PELVIS/SPINE W/FX EVAL Routine 12/27/2015 10:25 AM EDT Screening HXWH MICROALBUMIN URINE RANDOM W/CREAT Routine 07/21/2012 10:21 AM EST from Last 3 Months or Most Recently Relevant to Health Maintenance Results * MM Breast tomosynthesis screening-Bilateral (03/22/2019 2:38 PM EDT) Anatomical Region Laterality Modality Breast Bilateral Mammography 03/23/2019 11:0 2 AM EDT Impressions 03/23/2019 11:04 AM EDT There is no mammographic evidence of malignancy. Routine follow-up mammogram in 1 year is recommended. The patient will receive a lay summary of the results of this breast imaging exam. Lay summaries for mammography examinations will also identify the patient's personal breast tissue composition as required by state law. OVERALL ASSESSMENT: BI-RADS 2: Benign findings. RECOMMENDATION: Continued routine screening mammography. *BREAST COMPOSITION Breast composition descriptions are based on the standard practice guidelines of the ACR BI-RADS [place]. A reference guide is provided below. BREAST COMPOSITION CATEGORIES - BI-RADS VERSION V a. The breasts are almost entirely fatty. b. There are scattered areas of fibroglandular density. c. The breasts are heterogeneously dense, which may obscure small masses. d. The breasts are extremely dense, which lowers the sensitivity of mammography. Patients in categories c and d may qualify for supplemental screening exams. Narrative 03/23/2019 11:04 AM EDT EXAMINATION: MM SCREENING WITH TOMOSYNTHESIS, BILATERAL CLINICAL INFORMATION: Screening BREAST CANCER RISK: The lifetime risk of breast cancer based on the Mary Score Model is 7%. ?? Several risk assessment tools, including the Mary Score Model and the Breast Cancer Risk Assessment Tool designed at the National Cancer [place] (NCI), are available to help health professionals estimate a woman's breast cancer risk. These tools give approximate, rather than precise, estimates of breast cancer risk based on different combinations of risk factors and different data sets. Annual screening with breast MRI may be of benefit in women with a Mary Score of 20% or greater. COMPARISON: Prior mammograms, most recent 02/23/2018. TECHNIQUE: Examination was performed using full breast technique. Tomosynthesis views of both breasts were obtained at 1 mm increments. Computer-aided detection was utilized by the radiologist in the interpretation of this exam. FINDINGS: The breasts are almost entirely fatty (composition a). Bilateral breasts: Mildly nodular background parenchymal pattern has not significantly changed from prior exam. No new suspicious masses, calcifications or other abnormalities are seen. ??Compared to the prior exam, there has been no significant interval change. Nguyễn Frederick MD IMG MAMMOGRAPHY [facility] * POCT Glycosylated Hemoglobin (Hb A1C) (12/08/2017 8:56 AM EDT) Hemoglobin A1C 5.9 4.0 - 6.0 % Lot Number [id number] Last Trimmer Pass Pass Blood specimen (specimen) 12/08/2017 8:56 AM EDT aWrner Boyer MD POINT OF CARE TEST O RDERABLES * (ABNORMAL) Lipid panel with nonHDL (12/06/2017 11:52 AM EDT) Cholesterol, Total 124 <200 mg/dL [facility] Cholesterol, HDL 37(L) >50 mg/dL [facility] Triglycerides 197(H) <150 mg/dL [facility] LDL Cholesterol 60 mg/dL (calc) [facility] Comment: Reference range: <100 Desirable range <100 mg/dL for primary prevention; ?? <70 mg/dL for patients with CHD or diabetic patients with > or = 2 CHD risk factors. LDL-C is now calculated using the Dhruv-Ryan calculation, which is a validated novel method providing better accuracy than the Friedewald equation in the estimation of LDL-C. Dhruv SS et al. BENJAMIN. 2013;310(19): 3275-8071 (http://education.[employer]/faq/PIS003) Cholesterol/HDL Ratio 3.4 <5.0 (calc) [facility] Non HDL Chol. (LDL+VLDL) 87 <130 mg/dL (calc) [facility] Comment: For patients with diabetes plus 1 major ASCVD risk factor, treating to a non-HDL-C goal of <100 mg/dL (LDL-C of <70 mg/dL) is considered a therapeutic option. Blood specimen (specimen) Blood specimen / Unknown 12/06/2017 11:52 AM EDT 12/06/2017 11:57 AM EDT Narrative [facility] - 12/07/2017 5:14 AM EDT PT STATED NON FASTING WAS OK PER FASTING:NO FASTING: NO Resulting Agency Comment Performing Organization Information: ?Site ID: [id number] ?Name: [employer] ?Address: [address] [place] [address], [place] [address] ?Director: Niurka Whitfield MD Warner Boyer MD LAB BLOOD ORDERABLES [facility] [address], [place] [address] * (ABNORMAL) Chem 10 (12/06/2017 11:52 AM EDT) Albumin 4.0 3.6 - 5.1 g/dL [facility] Blood Urea Nitrogen (BUN) 30(H) 7 - 25 mg/dL [facility] Creatinine 2.16(H) 0.60 - 0.93 mg/dL [facility] Comment: For patients >49 years of age, the reference limit for Creatinine is approximately 13% higher for people identified as -Stateless. eGFR Non- 22(L) > OR = 60 mL/min/1. 73m2 [facility] eGFR 26(L) > OR = 60 mL/min/1. 73m2 [facility] Glucose 97 65 - 139 mg/dL [facility] Comment: ? Non-fasting reference interval Magnesium 2.0 1.5 - 2.5 mg/dL [facility] Phosphorus 2.8 2.1 - 4.3 mg/dL [facility] Sodium 138 135 - 146 mmol/L [facility] Potassium 4.7 3.5 - 5.3 mmol/L [facility] Chloride 106 98 - 110 mmol/L [facility] CO2 23 20 - 31 mmol/L [facility] Blood specimen (specimen) Blood specimen / Unknown 12/06/2017 11:52 AM EDT 12/06/2017 11:57 AM EDT Narrative [facility] - 12/07/2017 5:14 AM EDT PT STATED NON FASTING WAS OK PER FASTING:NO FASTING: NO Resulting Agency Comment Performing Organization Information: ?Site ID: [id number] ?Name: [facility] ?Address: [address] [place] [address], [place] [address] ?Director: Niurka Whitfield MD Warner Boyer MD LAB BLOOD ORDERABLES [facility] [address], [place] [address] * DEXA Bone density-Hip/pelvis/spine w/fx eval (Axial) (12/27/2015 10:25 AM EDT) Anatomical Region Laterality Modality Digital Radiogra phy Impressions 12/27/2015 3:33 PM EDT IMPRESSION: Based on the lowest T score value of ??-1.6 in femoral neck, the patient is placed in a osteopenia bone density category. There is no significant interval changes noted in the bone mineral density of the lumbar spine or left hip (less than 5%) since the study of 2006. Fracture risk assessment over the next 10 years: Major osteoporotic fracture : 6.0 % Hip fracture : 0.7 % Narrative 12/27/2015 3:33 PM EDT CLINICAL INDICATION: ??Screening for osteoporosis Comparison study: Baseline study of 10/04/2006 BONE DENSITOMETRY: TECHNIQUE: Dual energy x-ray absorptiometry of the lumbar spine and left hip is performed. ??The images are of good technical quality. ??Attached are summary results. LUMBER SPINE: Bone mineral density in the lumbar spine between L1-L4: 1.419 g/cm^2 Current T-score : 2.0. Baseline bone mineral density ?? : 1.391 g/cm^2 LEFT FEMUR: Femur neck bone mineral density : 0.819 g/cm^2. ?? Current T-score : -1.6. Baseline bone mineral density ??: 0.955 g/cm^2 Total femur bone mineral density : 1.009 g/cm^2. ?? Current T-score : 0.0. Baseline bone mineral density : 1.009 g/cm^2 [employer] (WHO) BONE DENSITY CRITERIA FOR OSTEOPOROSIS. *T-score = the standard deviation (SD) from the mean for healthy young adults. Normal: T-score at or above -1 SD Osteopenia: T-score between -1 and -2.5 Osteoporosis: T-score at or below -2.5 Established Osteoporosis: T-score below -2.5 plus fragility fracture. Procedure Note Morteza Cosme MD - 12/27/2015 CLINICAL INDICATION: Screening for osteoporosis Comparison study: Baseline study of 10/04/2006 BONE DENSITOMETRY: TECHNIQUE: Dual energy x-ray absorptiometry of the lumbar spine and lefthip is performed. The images are of good technical quality. Attached aresummary results. LUMBER SPINE: Bone mineral density in the lumbar spine between L1-L4: 1.419 g/cm^2 Current T-score : 2.0. Baseline bone mineral density : 1.391 g/cm^2 LEFT FEMUR: Femur neck bone mineral density : 0.819 g/cm^2. Current T-score : -1.6. Baseline bone mineral density : 0.955 g/cm^2 Total femur bone mineral density : 1.009 g/cm^2. Current T-score : 0.0. Baseline bone mineral density : 1.009 g/cm^2 [employer]GANIZ[employer] (WHO) BONE DENSITY CRITERIA FOR OSTEOPOROSIS. *T-score = the standard deviation (SD) from the mean for healthy youngadults. Normal: T-score at or above -1 SD Osteopenia: T-score between -1 and -2.5 Osteoporosis: T-score at or below -2.5 Established Osteoporosis: T-score below -2.5 plus fragility fracture. IMPRESSION: IMPRESSION: Based on the lowest T score value of -1.6 in femoral neck, the patient isplaced in a osteopenia bone density category. There is no significant interval changes noted in the bone mineral densityof the lumbar spine or left hip (less than 5%) since the study of 2006. Fracture risk assessment over the next 10 years: Major osteoporotic fracture : 6.0 % Hip fracture : 0.7 % Warner Boyer MD IM DXA ORDERABLES * (ABNORMAL) Microalbumin Urine Random W/Creat (07/21/2012 10:21 AM EST) Creatinine, Random Urine 80.00 29.00 - 226 mg/dL [facility] Microalbumin/ Creatinine Ratio see below Unable to perform calculation due to low concentration. 0.00 - 29.00 Ratio [facility] Microalbumin, Urine, Random <12.00(LL) 0.00 - 29.00 mg/L [facility] 07/21/2012 10:2 1 AM EST Conversion Provider HX LAB [facility] from Last 3 Months or Most Recently Relevant to Health Maintenance Advance Directives * Full Code (Latest Code Status on File) Date Activated Date Inactivated Comments 01/29/2021 7:55 AM * Full Code Date Activated Date Inactivated Comments 12/23/2015 10:44 AM 12/23/2015 2:55 PM Care Teams Building Maintenance Superintendent Relationship Specialty Start Date End Date Nguyễn Frederick MD [address] [place] [address] PCP - General Internal Medicine 01/29/21 Emery Mcintosh [address] [place] [address] Ophthalmology 02/09/19
--- OUTSIDE RECORDS SUMMARY | 2024-08-31 17:18 | XMS_ITS | Encounter Summary ---
Author Organization [facility] Address [address] [place] [address] Care Team Providers Care Environmental Manager Name Role Phone Warner Boyer MD Primary Care Provider Mary Alice Gongora RN Unavailable Emery Mcintosh Unavailable Unavailable Nguyễn Frederick MD Primary Care Provider [phone] Jessee Garcia MD Primary Care Provider Nguyễn Frederick MD Primary Care Provider [phone] Reason for Visit * Reason Comments Medication Refill Encounter Details Date Type Department Care Team (Late st Contact Info) Description 06/06/[address] [place] [phone] Warner Boyer MD Essential hypertension Social History Tobacco Use Types Packs/Day Years [...] documented as of this encounter Visit Diagnoses Diagnosis Essential hypertension Unspecified essential hypertension documented in this encounter Care Teams Environmental Manager Relationship Specialty Start Date End Date Warner Boyer MD PCP - General Internal Medicine 01/23/15 03/21/19 Nguyễn Frederick MD [address] [place] [address] PCP - General Internal Medicine 03/22/19 03/22/19 Jessee Garcia MD [address] [place] [address] PCP - General Family Medicine 10/24/20 01/28/21 Nguyễn Frederick MD [address] [place] [address] PCP - General Internal Medicine 01/29/21 Mary Alice Roche, RN [address] [address] [facility] Community Loom Inspector 02/23/17 05/18/21 Emery Mcintosh [address] [place] [address] Ophthalmology 02/09/19 documented as of this encounter
--- OUTSIDE RECORDS SUMMARY | 2024-08-31 17:18 | XMS_ITS | Encounter Summary ---
Author Organization [facility] Address [address] [place] [address] Care Team Providers Care Clinic Business Manager Name Role Phone Warner Boyer MD Primary Care Provider Mary Alice Gongora RN Unavailable [phone] Emery Mcintosh Unavailable Unavailable Nguyễn Frederick MD Primary Care Provider [phone] Jessee Garcia MD Primary Care Provider [phone] Nguyễn Frederick MD Primary Care Provider [phone] Reason for Visit * Reason Comments Medication Refill Encounter Details Date Type Department Care Team (Late st Contact Info) Description 10/15/[address] [place] [phone] Warner Boyer MD Insomnia Social History Tobacco Use Types Packs/Day Years [...] as of this encounter Visit Diagnoses Diagnosis Insomnia Insomnia, unspecified documented in this encounter Care Teams Clinic Business Manager Relationship Specialty Start Date End Date Warner Boyer MD PCP - General Internal Medicine 01/23/15 03/21/19 Nguyễn Frederick MD [address] [place] [address] PCP - General Internal Medicine 03/22/19 03/22/19 Jessee Garcia MD [address] [place] [address] PCP - General Family Medicine 10/24/20 01/28/21 Nguyễn Frederick MD [address] [place] [address] PCP - General Internal Medicine 01/29/21 Mary Alice Roche, DELGADO [address] [address] [facility] Community Gold And Silver Assayer 02/23/17 05/18/21 Emery Mcintosh [address] [place] [address] Ophthalmology 02/09/19 documented as of this encounter
--- OUTSIDE RECORDS SUMMARY | 2024-08-31 17:18 | XMS_ITS | Encounter Summary ---
Author Organization [facility] Address [address] [place] [address] Care Team Providers Care Hotel Sales Manager Name Role Phone Warner Boyer MD Primary Care Provider Mary Alice Gongora RN Unavailable [phone] Emery Mcintosh Unavailable Unavailable Nguyễn Frederick MD Primary Care Provider [phone] Jessee Garcia MD Primary Care Provider [phone] Nguyễn Frederick MD Primary Care Provider [phone] Encounter Details Date Type Department Care Team (Late st Contact Info) Description 05/31/2017 Scanned Document [address] [phone] Provider, Generic Social History Tobacco [...] on filedocumented in this encounter Care Teams Hotel Sales Manager Relationship Specialty Start Date End Date Warner Boyer MD PCP - General Internal Medicine 01/23/15 03/21/19 Nguyễn Frederick MD [address] [place] [address] PCP - General Internal Medicine 03/22/19 03/22/19 Jessee Garcia MD [address] [place] [address] PCP - General Family Medicine 10/24/20 01/28/21 Nguyễn Frederick MD [address] [address] PCP - General Internal Medicine 01/29/21 Mary Alice Roche, RN [address] [address] [facility] Community Service Coordinator Elderly Facility 02/23/17 05/18/21 Emery Mcintosh [address] [place] [address] Ophthalmology 02/09/19 documented as of this encounter
--- OUTSIDE RECORDS SUMMARY | 2024-08-31 17:18 | XMS_ITS ---
Author Organization [facility] Address [address] [facility] [address] [place] [address] Care Team Providers Care Sales Advisory Manager Name Role Phone RAY ROBERTSON Primary Care Provider REASON FOR VISIT Calcitriol refill Medications Medication SIG (Take, Route, Fr equency, Duration) Notes Start Date End Date Status Calcitriol 0.25 MCG 1 capsule Orally ahrsh ry other day for 30 days Active Encounters Encounter Location Date Provider Diagnosis [facility] [address] [facility] [address] [place] [address] 01/12/2024 RAY ROBERTSON Chronic kidney disease, stage 3 (moderate) N18.3 Assessments Encounter Date Diagnosis (ICD Code) Assessment Notes Treatment Notes Treatment Clinical Notes Section Notes 01/12/2024 Chronic kidney disease, stage 3 (moderate) (ICD-10 - N18.3) Plan Of Treatment Medication Medication Name Sig Start Date Stop Date Notes Calcitriol 0.25 MCG 1 capsule Orally harsh ry other day for 30 days Next Appt Details Provider Name:Fuad Harvey, 0 09/01/2024 02:30:00 PM, [address] [facility] [address], [place], [address], Progress Notes * DUANE LINDSEY MDOB:[birth year] (78 yo F)Acc No.[id number]:01/12/2024 Patient:?DUANE LINDSEY :1945???Age:78 Y???Sex:Female Address:[address], [place] [address] * Refills? Refill Calcitriol Capsule, 0.25 MCG, Orally, 12, 1 capsule, every other day, 30 days, Refills=5 * true * Date:? Generated for Stephanie barros/Luci/Bitaitting on:?08/31/2024 05:17 PM EST
--- OUTSIDE RECORDS SUMMARY | 2024-08-31 17:18 | XMS_ITS | Encounter Summary ---
Author Organization [facility] Address [address] [place] [address] Care Team Providers Care Buildings And Grounds Director Name Role Phone Warner Boyer MD Primary Care Provider Mary Alice Gongora RN Unavailable [phone] Emery Mcintosh Unavailable Unavailable Nguyễn Frederick MD Primary Care Provider Jessee Garcia MD Primary Care Provider [phone] Nguyễn Frederick MD Primary Care Provider [phone] Encounter Details Date Type Department Care Team (Late st Contact Info) Description 09/28/2017 Scanned Document [address] [address] Provider, Generic Social History Tobacco [...] on filedocumented in this encounter Care Teams Buildings And Grounds Director Relationship Specialty Start Date End Date Warner Boyer MD PCP - General Internal Medicine 01/23/15 03/21/19 Nguyễn Frederick MD [address] [place] [address] PCP - General Internal Medicine 03/22/19 03/22/19 Jessee Garcia MD [address] [place] [address] PCP - General Family Medicine 10/24/20 01/28/21 Nguyễn Frederick MD [address] [address] PCP - General Internal Medicine 01/29/21 Mary Alice Roche, RN [address] [address] [facility] Community Book Sewer 02/23/17 05/18/21 Emery Mcintosh [address] [place] [address] Ophthalmology 02/09/19 documented as of this encounter
--- OUTSIDE RECORDS SUMMARY | 2024-08-31 17:18 | XMS_ITS | Encounter Summary ---
Author Organization [facility] Address [address] [place] [address] Care Team Providers Care Office Spec Name Role Phone Mary Alice Roche RN Unavailable [phone] Emery Mcintosh Unavailable Unavailable Jessee Garcia MD Primary Care Provider [phone] Nguyễn Frederick MD Primary Care Provider [phone] Encounter Details Date Type Department Care Team (Late st Contact Info) Description 01/28/2021 Scanned Document [facility] General Surgery [address] [phone] Ced Bustos MD [address] [place] [address] Social History Tobacco Use Types Packs/Day Years Used Date Smoking Tobacco: Former Smokeless Tobacco: Never Comments:end date unknown Alcohol Use Standard Drinks/Week Comments No 0 (1 standard drink = 0.6 oz pur e alcohol) Sex and Gender Information Value Date Recorded Sex Assigned at Not on file Gender Identity Not on file Sexual Orientation Not on file COVID-19 Exposure Response Date Recorded In the last month, have you been in contact with someone who was confirmed or suspected to have Coronavirus / COVID-19? No / Unsure 01/29/2021 8:10 AM EDT documented as of this encounter Plan of Treatment Not on file documented as of this encounter Visit Diagnoses Not on filedocumented in this encounter Care Teams Office Spec Relationship Specialty Start Date End Date Jessee Garcia MD [address] [place] [address] PCP - General Family Medicine 10/24/20 01/28/21 Nguyễn Frederick MD [address] [place] [address] PCP - General Internal Medicine 01/29/21 Mary Alice Roche, DELGADO [address] [address] [facility] Community Machinist/Machine Builder 02/23/17 05/18/21 Emery Mcintosh [address] [place] [address] Ophthalmology 02/09/19 documented as of this encounter
--- OUTSIDE RECORDS SUMMARY | 2024-08-31 17:18 | XMS_ITS ---
Author Organization [facility] Address [address] [facility] [address] [place] [address] Care Team Providers Care Garage Door Installer Name Role Phone AILYN BELL Primary Care Provider REASON FOR VISIT refill Medications Medication SIG (Take, Route, Fr equency, Duration) Notes Start Date End Date Status Calcitriol 0.25 MCG 1 capsule Orally harsh ry other day for 30 days Active Allopurinol 300 MG 1 tablet Orally Once a day for 90 days Active Encounters Encounter Location Date Provider Diagnosis [facility] [address] [facility] [address] [place] [address] 06/23/2024 RAY ROBERTSON Plan Of Treatment Medication Medication Name Sig Start Date Stop Date Notes Calcitriol 0.25 MCG 1 capsule Orally harsh ry other day for 30 days Allopurinol 300 MG 1 tablet Orally Once a day for 90 days Next Appt Details Provider Name:Jttorito Harvey, 0 09/01/2024 02:30:00 PM, [address] [address], [place], [address], Progress Notes * DUANE LINDSEY MDOB:[birth year] (78 yo F)Acc No.[id number]:06/23/2024 Patient:?DUANE LINDSEY :1945???Age:78 Y???Sex:Female Address:[address], [place] [address] * Refills? Refill Calcitriol Capsule, 0.25 MCG, Orally, 12, 1 capsule, every other day, 30 days, Refills=5 Refill Allopurinol Tablet, 300 MG, Orally, 90, 1 tablet, Once a day, 90 days, Refills=3 * true * Date:? Generated for Stephanie barros/Luci/Bitaitting on:?08/31/2024 05:18 PM EST
--- OUTSIDE RECORDS SUMMARY | 2024-08-31 17:18 | XMS_ITS | Encounter Summary ---
Author Organization [facility] Address [address] [place] [address] Care Team Providers Care Autocutter Name Role Phone Warner Boyer MD Primary Care Provider Mary Alice Gongora RN Unavailable [phone] Emery Mcintosh Unavailable Unavailable Nguyễn Frederick MD Primary Care Provider [phone] Jessee Garcia MD Primary Care Provider [phone] Nguyễn Frederick MD Primary Care Provider [phone] Encounter Details Date Type Department Care Team (Late st Contact Info) Description 05/12/2018 Scanned Document [address] [phone] Provider, Generic Social History Tobacco [...] on filedocumented in this encounter Care Teams Autocutter Relationship Specialty Start Date End Date Warner Boyer MD PCP - General Internal Medicine 01/23/15 03/21/19 Nguyễn Frederick MD [address] [place] [address] PCP - General Internal Medicine 03/22/19 03/22/19 Jessee Garcia MD [address] [place] [address] PCP - General Family Medicine 10/24/20 01/28/21 Nguyễn Frederick MD [address] [address] PCP - General Internal Medicine 01/29/21 Mary Alice Roche, RN [address] [facility] Community Auto Winder 02/23/17 05/18/21 Emery Mcintosh [address] [place] [address] Ophthalmology 02/09/19 documented as of this encounter
--- OUTSIDE RECORDS SUMMARY | 2024-08-31 17:18 | XMS_ITS | Encounter Summary ---
Author Organization [facility] Address [address] [place] [address] Care Team Providers Care Roll Operator Name Role Phone Warner Boyer MD Primary Care Provider Mary Alice Gongora RN Unavailable [phone] Emery Mcintosh Unavailable Unavailable Nguyễn Frederick MD Primary Care Provider [phone] Jessee Garcia MD Primary Care Provider [phone] Nguyễn Frederick MD Primary Care Provider [phone] Encounter Details Date Type Department Care Team (Late st Contact Info) Description 01/13/2016 Scanned Document [address] [phone] Provider, Generic Social History Tobacco Use Types [...] Procedure Name Priority Date/Time Associated Diagnosis Comments HX OB ULTRASOUND RECORD 01/13/2016 documented in this encounter Results * HX OB ULTRASOUND RECORD (01/13/2016) Narrative 01/13/2016 Ordered by an unspecified provider. Generic Provider HX AMB PROCEDURES documented in this encounter Visit Diagnoses Not on filedocumented in this encounter Care Teams Roll Operator Relationship Specialty Start Date End Date Warner Boyer MD PCP - General Internal Medicine 01/23/15 03/21/19 Nguyễn Frederick MD [address] [place] [address] PCP - General Internal Medicine 03/22/19 03/22/19 Jessee Garcia MD [address] [place] [address] PCP - General Family Medicine 10/24/20 01/28/21 Nguyễn Frederick MD [address] [place] [address] PCP - General Internal Medicine 01/29/21 Mary Alice Roche, DELGADO [address] [place] [address] [address] [facility] Community Res Habilitation Assistant 02/23/17 05/18/21 Emery Mcintosh [address] [place] [address] Ophthalmology 02/09/19 documented as of this encounter
--- OUTSIDE RECORDS SUMMARY | 2024-08-31 17:18 | XMS_ITS | Encounter Summary ---
Author Organization [facility] Address [address] [place] [address] Care Team Providers Care Boiler Tenders Supervisor Name Role Phone Warner Boyer MD Primary Care Provider Mary Alice Gongora RN Unavailable [phone] Emery Mcintosh Unavailable Unavailable Nguyễn Frederick MD Primary Care Provider [phone] Jessee Garcia MD Primary Care Provider [phone] Nguyễn Frederick MD Primary Care Provider [phone] Reason for Visit * Reason Comments Medication Refill Encounter Details Date Type Department Care Team (Late st Contact Info) Description [address] [place] [phone] Warner Boyer MD Essential hypertension Social History [...] hypertension documented in this encounter Care Teams Boiler Tenders Supervisor Relationship Specialty Start Date End Date Warner Boyer MD PCP - General Internal Medicine 01/23/15 03/21/19 Nguyễn Frederick MD [address] [place] [address] PCP - General Internal Medicine 03/22/19 03/22/19 Jessee Garcia MD [address] [place] [address] PCP - General Family Medicine 10/24/20 01/28/21 Nguyễn Frederick MD [address] [place] [address] PCP - General Internal Medicine 01/29/21 Mary Alice Roche, RN [address] [address] [facility] Community Biological Lab Technician 02/23/17 05/18/21 Emery Mcintosh [address] [place] [address] Ophthalmology 02/09/19 documented as of this encounter
--- OUTSIDE RECORDS SUMMARY | 2024-08-31 17:18 | XMS_ITS | Encounter Summary ---
Author Organization [facility] Address [address] [place] [address] Care Team Providers Care Staff Occupational Therapist Name Role Phone Warner Boyer MD Primary Care Provider Mary Alice Gongora RN Unavailable [phone] Emery Mcintosh Unavailable Unavailable Nguyễn Frederick MD Primary Care Provider [phone] Jessee Garcia MD Primary Care Provider [phone] Nguyễn Frederick MD Primary Care Provider [phone] Encounter Details Date Type Department Care Team (Late st Contact Info) Description 01/06/2018 Scanned Document [address] [phone] Provider, Generic Social History Tobacco [...] on filedocumented in this encounter Care Teams Staff Occupational Therapist Relationship Specialty Start Date End Date Warner Boyer MD PCP - General Internal Medicine 01/23/15 03/21/19 Nguyễn Frederick MD [address] [place] [address] PCP - General Internal Medicine 03/22/19 03/22/19 Jessee Garcia MD [address] [place] [address] PCP - General Family Medicine 10/24/20 01/28/21 Nguyễn Frederick MD [address] [address] PCP - General Internal Medicine 01/29/21 Mary Alice Roche, RN [address] [address] [facility] Community Assisted Living Manager 02/23/17 05/18/21 Emery Mcintosh [address] [place] [address] Ophthalmology 02/09/19 documented as of this encounter
--- OUTSIDE RECORDS SUMMARY | 2024-08-31 17:18 | XMS_ITS | Encounter Summary ---
Author Organization [facility] Address [address] [place] [address] Care Team Providers Care Escrow Officer Name Role Phone Warner Boyer MD Primary Care Provider Mary Alice Gongora RN Unavailable [phone] Emery Mcintosh Unavailable Unavailable Nguyễn Frederick MD Primary Care Provider [phone] Jessee Garcia MD Primary Care Provider [phone] Nguyễn Frederick MD Primary Care Provider [phone] Encounter Details Date Type Department Care Team (Late st Contact Info) Description 04/27/2016 Scanned Document [address] [phone] Provider, Generic Social History Tobacco [...] on filedocumented in this encounter Care Teams Escrow Officer Relationship Specialty Start Date End Date Warner Boyer MD PCP - General Internal Medicine 01/23/15 03/21/19 Nguyễn Frederick MD [address] [place] [address] PCP - General Internal Medicine 03/22/19 03/22/19 Jessee Garcia MD [address] [place] [address] PCP - General Family Medicine 10/24/20 01/28/21 Nguyễn Frederick MD [address] [address] PCP - General Internal Medicine 01/29/21 Mary Alice Roche, RN [address] [address] [facility] Community Assistant Printer Floor Covering 02/23/17 05/18/21 Emery Mcintosh [address] [place] [address] Ophthalmology 02/09/19 documented as of this encounter
== END 2024-08-31 14:43 | disposition home or self-care (01) ==
PROVIDERS: PCP Hospitalist; Visit Provider Internal Medicine Nephrology
DX: E79.0 Hyperuricemia without signs of inflammatory arthritis and tophaceous disease (principal); N25.81 Secondary hyperparathyroidism of renal origin; I10 Essential (primary) hypertension; N18.32 Chronic kidney disease, stage 3b; D63.1 Anemia in chronic kidney disease
CPT/HCPCS: 99214

== ENCOUNTER 2024-11-30 11:58 | Outpatient (AMB) | payer MEDICARE, SELFPAY ==
--- OUTSIDE RECORDS SUMMARY | 2024-11-30 12:07 | XMS_ITS | Encounter Summary ---
Author Organization [facility] Address [address] [place] [address] Care Team Providers Care Ballast Cleaning Machine Operator Name Role Phone Warner Boyer MD Primary Care Provider Mary Alice Gongora RN Unavailable Emery Mcintosh Unavailable Unavailable Nguyễn Frederick MD Primary Care Provider [phone] Jessee Garcia MD Primary Care Provider [phone] Nguyễn Frederick MD Primary Care Provider [phone] Encounter Details Date Type Department Care Team (Late st Contact Info) Description 06/03/2015 Scanned Document [address] [phone] Provider, Generic Social History Tobacco Use Types Packs/Day Years Used Date Smoking Tobacco: Former Comments:end date unknown Alcohol Use Standard Drinks/Week Comments No 0 (1 standard drink = 0.6 oz pur e alcohol) Comments Unknown Sex and Gender Information Value Date Recorded Sex Assigned at Not on file Legal Sex Female 2:58 PM EDT Gender Identity Not on file Sexual Orientation Not on file documented as of this encounter Plan of Treatment Not on file documented as of this encounter Procedures Procedure Name Priority Date/Time Associated Diagnosis Comments ULTRASOUND EXTERNAL RESULT 06/27/2015 documented in this encounter Results * ULTRASOUND EXTERNAL RESULT (06/27/2015) Anatomical Region Laterality Modality Ultrasound Narrative 07/14/2015 11:59 PM EST Ordered by an unspecified provider. us Generic Provider IMG US ORDERABLES Final Result documented in this encounter Visit Diagnoses Not on filedocumented in this encounter Care Teams Ballast Cleaning Machine Operator Relationship Specialty Start Date End Date Warner Boyer MD PCP - General Internal Medicine 01/23/15 03/21/19 Nguyễn Frederick MD [address] [place] [address] PCP - General Internal Medicine 03/22/19 03/22/19 Jessee Garcia MD [address] [place] [address] PCP - General Family Medicine 10/24/20 01/28/21 Nguyễn Frederick MD [address] [place] [address] PCP - General Internal Medicine 01/29/21 Mary Alice Roche, DELGADO [address] [address] [facility] Community Parts Consultant 02/23/17 05/18/21 Emery Mcintosh [address] [place] [address] Ophthalmology 02/09/19 documented as of this encounter
--- NOTE | 2024-11-30 12:17 | HO.NEPHOV ---
Vital Signs 11/30/24 12:23 Height 5 ft 5 in Weight 279 lb 6 oz BMI 46.5 BP 134/64 Blood Pressure Location Lt brachial Position Sitting Pulse 86 Pulse Source Pulse Oximeter Pulse Oximetry (%) 97 Oxygen Delivery Method Room Air Intake Visit Reasons: Follow up- # Disconnected Shot Core Drill Operator Helper Required: No Accompanied by: Daughter Allergies No Known Allergies Allergy (Verified 11/30/24 12:23) HPI Comments Details: Liana was seen in follow up of her CKD, hypertension, anemia of Chronic kidney disease as well as secondary hyperparathyroidism. She has H/O high BMI but her weight has been stable. She claims to be compliant with her medications. She is not a diabetic. Her BP has been at goal. She denies any uremic symptoms, edema or orthostatic symptoms. She has no CP, SOB, PND, orthopnea, pedal edema. She does not take any excessive NSAID's. She has been having some questionable hematuria. She is not sure whether its vaginal bleeding. This has been going on for last 2 months but not disclosed to any one for a long time. Her daughter accompanied her during this office visit. [facility] Medical History (Updated 12/02/24 @ 20:39 by Roshan Elizalde MD) Hypertension Anemia in chronic kidney disease Chronic kidney disease, stage 3b Surgical History History of hysterectomy Family History Mother Heart disease Social History Alcohol intake: never Patient Tobacco Use Status: Never used Tobacco Review of Systems Const All systems reviewed & are unremarkable except as noted in HPI and below Physical Exam Vital Signs: Last Vital Signs Pulse 86 11/30/24 12:23 BP 134/64 11/30/24 12:23 Pulse Ox 97 11/30/24 12:23 Oxygen Delivery Method Room Air 11/30/24 12:23 BMI result Body Mass Index 46.5 Const General: comfortable and no acute distress Orientation/consciousness: patient oriented x3 HEENT Head: Yes normocephalic Mouth: Normal oral and palatal mucosa present Eyes EOM: EOMs intact bilaterally Neck Neck: Yes supple Resp Auscultation: clear to auscultation bilaterally Cardio Jugular venous distension: no JVD Rate: regular rate GI Palpation (GI): Soft to palpation Auscultation: normal bowel sounds General: Yes no CVA tenderness Back/Spine/Pelvis Back: no CVA tenderness Skin General skin exam: no rashes or lesions noted Neuro General: patient oriented x3 and moves all extremities Extrem General: Yes no pedal edema Assessment & Plan Assessment & Plan (1) Hematuria: Code(s): R31.9 - Hematuria, unspecified Category: Medical Qualifiers: Hematuria type: gross Qualified Code(s): R31.0 - Gross hematuria (2) Chronic kidney disease, stage 3b: Code(s): N18.32 - Chronic kidney disease, stage 3b Category: Medical (3) Anemia in chronic kidney disease: Code(s): N18.9 - Chronic kidney disease, unspecified; D63.1 - Anemia in chronic kidney disease Category: Medical Qualifiers: Chronic kidney disease stage: stage 3 (moderate) Chronic kidney disease stage 3 subtype: stage 3b (GFR 30-44) Qualified Code(s): N18.32 - Chronic kidney disease, stage 3b; D63.1 - Anemia in chronic kidney disease (4) Hypertension: Code(s): I10 - Essential (primary) hypertension Category: Medical Qualifiers: Hypertension type: primary hypertension Qualified Code(s): I10 - Essential (primary) hypertension (5) Secondary hyperparathyroidism (of renal origin): Code(s): N25.81 - Secondary hyperparathyroidism of renal origin Category: Medical Plan She has Stage 3 CKD from long standing hypertension on a backdrop of high BMI. Her renal functions had been stable. Her BP is at goal. Her volume status is optimal. Her Hb had been stable and doesn't warrant EPO. Her serum calcium had been stable. She is on activated Vitamin D.She is on allopurinol which she is tolerating very well. I did not make any medications at this visit. I encouraged her to maintain good hydration and minimize NSAID's. I ordered blood work and urine studies today along with CT scan. If all these W/U is unyielding, she warrants a Urology consult for cystoscopy and Gynae for pelvic exam. I answered all questions. F/U appointment given Orders: Orders UA and rflx microscopic 11/30/24 R31.9 - Hematuria, unspecified Creatinine 11/30/24 R31.9 - Hematuria, unspecified CT abdomen pelvis wo IV con 11/30/24 R31.9 - Hematuria, unspecified Urine Culture 11/30/24 R31.9 - Hematuria, unspecified Blood Urea Nitrogen 11/30/24 R31.9 - Hematuria, unspecified Electrolytes 11/30/24 R31.9 - Hematuria, unspecified IRON PROFILE 11/30/24 D63.1 - Anemia in chronic kidney disease, I10 - Essential (primary) hypertension, N18.32 - Chronic kidney disease, stage 3b, N25.81 - Secondary hyperparathyroidism of renal origin Parathyroid Hormone Intact 11/30/24 D63.1 - Anemia in chronic kidney disease, I10 - Essential (primary) hypertension, N18.32 - Chronic kidney disease, stage 3b, N25.81 - Secondary hyperparathyroidism of renal origin Vitamin D 25-OH Total 11/30/24 D63.1 - Anemia in chronic kidney disease, I10 - Essential (primary) hypertension, N18.32 - Chronic kidney disease, stage 3b, N25.81 - Secondary hyperparathyroidism of renal origin Coding Level of Care Code Est Pt Level 4 (05244) Diagnoses Gross hematuria R31.0 Hematuria type: gross Chronic kidney disease, stage 3b N18.32 Anemia in stage 3b chronic kidney disease N18.32; D63.1 Chronic kidney disease stage: stage 3 (moderate) Chronic kidney disease stage 3 subtype: stage 3b (GFR 30-44) Primary hypertension I10 Hypertension type: primary hypertension Secondary hyperparathyroidism (of renal origin) N25.81
[2024-11-30 12:23] VITALS: BP 134/64; PULSE 86; O2SAT 97; BMI 46.5
== END 2024-11-30 12:41 | disposition home or self-care (01) ==
LOC: HO.HKAS 11:59
PROVIDERS: PCP Hospitalist; Visit Provider Internal Medicine Nephrology
DX: R31.0 Gross hematuria (principal); N18.32 Chronic kidney disease, stage 3b; D63.1 Anemia in chronic kidney disease; I10 Essential (primary) hypertension; N25.81 Secondary hyperparathyroidism of renal origin
CPT/HCPCS: 99214

== ENCOUNTER → 2024-11-30 11:58 | Outpatient (BNVA) | payer MEDICARE, SELFPAY | PROVIDERS: PCP Hospitalist; Visit Provider Internal Medicine Nephrology | DX: I12.9 Hypertensive chronic kidney disease with stage 1 through stage 4 chronic kidney disease, or unspecified chronic kidney disease (principal); N18.32 Chronic kidney disease, stage 3b; D63.1 Anemia in chronic kidney disease; N25.81 Secondary hyperparathyroidism of renal origin; R31.0 Gross hematuria | CPT/HCPCS: 99212 ==

== ENCOUNTER 2024-12-22 07:34 | Outpatient (REF) | payer MEDICARE, SELFPAY ==
--- NOTE | ~2024-12-22 | CT_ITS ---
EXAMINATION: CT ABDOMEN AND PELVIS WITHOUT CONTRAST CLINICAL INFORMATION: Hematuria. COMPARISON: None available. TECHNIQUE: Multidetector volumetric imaging was performed from the superior aspect of the liver through the pubic symphysis. Sagittal and coronal reformatted images were obtained on the technologist's workstation. This CT examination was performed using dose optimization techniques as appropriate, variously including the following: *Automated exposure control *Adjustment of mA and/or kV according to patient size (this includes techniques or standardized protocols for targeted exams where dose is matched to indication/reason for exam; i.e. extremities or head) *Use of iterative reconstruction technique FINDINGS: LUNG BASES: Minor scarring in both lung bases. Mild cardiomegaly. No effusions. Small to moderate sized hiatus hernia at the GE junction. LIVER, GALLBLADDER, AND BILIARY TREE: The liver is normal in size, shape, and attenuation . No biliary ductal dilatation is present. There is a vague 1.4 cm low attenuating lesion in segment 8, indeterminate. (Series 3, image 28). No additional focal liver abnormality. Gallbladder demonstrates small gravel size layering gallstones. It is otherwise normal in CT appearance. PANCREAS: Unremarkable. SPLEEN: Unremarkable. ADRENAL GLANDS: Unremarkable. KIDNEYS AND URETERS: The kidneys are normal in size, shape, and attenuation. No hydronephrosis or hydroureter. There is a 2 mm nonobstructing calculus in the midpole posterior left kidney. No additional calculi. No perinephric stranding. BLADDER: Unremarkable. GASTROINTESTINAL TRACT: I hiatus hernia at the GE junction. The stomach, duodenum appear normal. Small bowel is normal in caliber and course without abnormality. Normal appendix. The colon is normal in course and caliber. No wall thickening or inflammation. No rectal abnormality. ABDOMINAL WALL: Abdominal pannus. No hernia noted. LYMPH NODES: No abnormal lymphadenopathy. VASCULAR: Moderate atheromatous calcification of the aorta and iliac arteries, without aneurysm. PELVIC VISCERA: There has been a hysterectomy. There is a left ovarian cyst measuring 3.4 x 2.4 cm (series 3, image 79). The right ovary is normal. OSSEOUS STRUCTURES: No suspicious lytic or blastic bone lesions. Moderate degenerative changes throughout the spine. Mild degenerative changes of both hip joints. CT/CT abdomen pelvis wo IV con IMPRESSION: 1. There is a 2 mm nonobstructing calculus in the left kidney. No additional renal calculi. No urological obstruction. 2. The ureters and urinary bladder appear normal. 3. Indeterminate 1.4 cm oval lesion in segment 8 of the liver. Recommend MRI or multiphasic CT for further characterization. 4. Left ovarian 3.4 x 2.4 cm simple appearing cyst. 5. Cardiomegaly. 6. Additional ancillary findings as discussed in the body of the report. Electronically signed by: Nemesio Panchal MD 12/22/2024 08:28 AM EDT
--- OUTSIDE RECORDS SUMMARY | 2024-12-22 07:36 | XMS_ITS | Encounter Summary ---
Author Organization [facility] Address [address] [place] [address] Care Team Providers Care Shellfish Grower Name Role Phone Warner Boyer MD Primary Care Provider Mary Alice Gongora RN Unavailable Emery Mcintosh Unavailable Unavailable Nguyễn Frederick MD Primary Care Provider [phone] Jessee Garcia MD Primary Care Provider [phone] Nguyễn Frederick MD Primary Care Provider [phone] Encounter Details Date Type Department Care Team (Late st Contact Info) Description 06/03/2015 Scanned Document [address] [phone] Provider, Generic Social History Tobacco Use Types [...] on filedocumented in this encounter Care Teams Shellfish Grower Relationship Specialty Start Date End Date Warner Boyer MD PCP - General Internal Medicine 01/23/15 03/21/19 Nguyễn Frederick MD [address] [place] [address] PCP - General Internal Medicine 03/22/19 03/22/19 Jessee Garcia MD [address] [place] [address] PCP - General Family Medicine 10/24/20 01/28/21 Nguyễn Frederick MD [address] [place] [address] PCP - General Internal Medicine 01/29/21 Mary Alice Roche, DELGADO [address] [address] [facility] Community Senior Payroll Manager 02/23/17 05/18/21 Emery Mcintosh [address] [place] [address] Ophthalmology 02/09/19 documented as of this encounter
== END 2024-12-22 07:35 | disposition home or self-care (01) ==
LOC: HO.CT 07:34
PROVIDERS: PCP Hospitalist; Visit Provider Internal Medicine Nephrology
DX: R31.9 Hematuria, unspecified (principal)
CPT/HCPCS: 74176

== ENCOUNTER → 2024-12-22 07:35 | Outpatient (BNV) | payer MEDICARE, SELFPAY | PROVIDERS: PCP Hospitalist; Visit Provider Radiology Diagnostic Radiology | DX: N20.0 Calculus of kidney (principal) | CPT/HCPCS: 74176 ==

== ENCOUNTER 2024-12-26 16:02 | Outpatient (AMB) | payer MEDICARE, SELFPAY ==
[2024-12-26 16:22] VITALS: BP 143/62; PULSE 89; O2SAT 99; BMI 46.6
--- NOTE | 2024-12-26 16:22 | HO.NEPHOV_ITS ---
Vital Signs 12/26/24 16:22 Height 5 ft 5 in Weight 280 lb BMI 46.6 BP 143/62 H Blood Pressure Location Rt brachial Position Sitting Pulse 89 Pulse Source Pulse Oximeter Pulse Oximetry (%) 99 Oxygen Delivery Method Room Air Intake Visit Reasons: 1 mo follow up-Conf Intake Note: Patient here for a follow-up. Senior Principal Software Engineer Required: No Accompanied by: Daughter Allergies No Known Allergies Allergy (Verified 12/26/24 16:26) Do you need a note to return to daycare/school/sports/work: No HPI Comments Details: Liana was seen in follow up of her CKD, hypertension, anemia of Chronic kidney disease as well as secondary hyperparathyroidism. She has H/O high BMI but her weight has been stable. She claims to be compliant with her medications. She is not a diabetic. Her BP has been at goal. She denies any uremic symptoms, edema or orthostatic symptoms. She has no CP, SOB, PND, orthopnea, pedal edema. She does not take any excessive NSAID's. She has been having some questionable hematuria and had undergone CT scan. She is not sure whether its vaginal bleeding. Her CT showed a 2 mm nonobstructing calculus in the left kidney. No additional renal calculi. She had indeterminate 1.4 cm oval lesion in segment 8 of the liver which needs MRI or multiphasic CT for further characterization. Also she had left ovarian 3.4 x 2.4 cm simple appearing cyst as well as cardiomegaly. Her daughter accompanied her during this office visit. [facility] Medical History Hypertension Anemia in chronic kidney disease Chronic kidney disease, stage 3b Surgical History History of hysterectomy Family History Mother Heart disease Social History Alcohol intake: never Patient Tobacco Use Status: Never used Tobacco Review of Systems Const All systems reviewed & are unremarkable except as noted in HPI and below Physical Exam Vital Signs: Last Vital Signs Pulse 89 12/26/24 16:22 BP 143/62 H 12/26/24 16:22 Pulse Ox 99 12/26/24 16:22 Oxygen Delivery Method Room Air 12/26/24 16:22 BMI result Body Mass Index 46.6 Const General: comfortable and no acute distress Orientation/consciousness: patient oriented x3 HEENT Head: Yes normocephalic Mouth: Normal oral and palatal mucosa present Eyes EOM: EOMs intact bilaterally Neck Neck: Yes supple Resp Auscultation: clear to auscultation bilaterally Cardio Jugular venous distension: no JVD Rate: regular rate GI Palpation (GI): Soft to palpation Auscultation: normal bowel sounds General: Yes no CVA tenderness Back/Spine/Pelvis Back: no CVA tenderness Skin General skin exam: no rashes or lesions noted Neuro General: patient oriented x3 and moves all extremities Extrem General: Yes no pedal edema Results Reviewed Nephrology Results: Hgb, (12.0-16.0) 10.6 g/dl L 08/31/24 WBC, (4.8-10.8) 11.8 X10*3/uL H 08/31/24 Plt Count, (160-400) 308 X10*3/uL 08/31/24 Sodium, (135-145) 138 mmol/L 08/31/24 Potassium, (3.3-5.1) 4.2 mmol/L 08/31/24 Chloride, (96-108) 107 mmol/L 08/31/24 Carbon Dioxide, (22-29) 22 mmol/L 08/31/24 BUN, (9-16) 26 mg/dL H 08/31/24 Creatinine, (0.5-1.4) 1.83 mg/dL H 08/31/24 Calcium, (8.4-10.2) 9.5 mg/dL 08/31/24 Phosphorus, (2.7-4.5) 3.3 mg/dL 08/31/24 PTH Intact, (8.7-77.1) 137.9 pg/mL H 08/31/24 Assessment & Plan Assessment & Plan (1) Chronic kidney disease, stage 3b: Code(s): N18.32 - Chronic kidney disease, stage 3b Category: Medical (2) Anemia in chronic kidney disease: Code(s): N18.9 - Chronic kidney disease, unspecified; D63.1 - Anemia in chronic kidney disease Category: Medical Qualifiers: Chronic kidney disease stage: stage 3 (moderate) Chronic kidney disease stage 3 subtype: stage 3b (GFR 30-44) Qualified Code(s): N18.32 - Chronic kidney disease, stage 3b; D63.1 - Anemia in chronic kidney disease (3) Hypertension: Code(s): I10 - Essential (primary) hypertension Category: Medical Qualifiers: Hypertension type: primary hypertension Qualified Code(s): I10 - Essential (primary) hypertension (4) Secondary hyperparathyroidism (of renal origin): Code(s): N25.81 - Secondary hyperparathyroidism of renal origin Category: Medical (5) Renal calculus: Code(s): N20.0 - Calculus of kidney Category: Medical (6) Ovarian cyst: Code(s): N83.209 - Unspecified ovarian cyst, unspecified side Category: Medical Qualifiers: Laterality: left Qualified Code(s): N83.202 - Unspecified ovarian cyst, left side (7) Hematuria: Code(s): R31.9 - Hematuria, unspecified Category: Medical Qualifiers: Hematuria type: gross Qualified Code(s): R31.0 - Gross hematuria Plan She has Stage 3 CKD from long standing hypertension on a backdrop of high BMI. Her renal functions had been stable. Her BP is at goal. Her volume status is optimal. Her Hb had been stable and doesn't warrant EPO. Her serum calcium had been stable. She is on activated Vitamin D.She is on allopurinol which she is tolerating very well. I did not make any medications at this visit. I encouraged her to maintain good hydration and minimize NSAID's. She needs Urology consult ( I ordered) as well as Gynae consult , MRI abdomen as well as ECHO ( cardiomegaly). They are going to discuss about all these with PCP. I answered all questions. F/U appointment given Orders: Orders Complete Blood Count Auto Diff 3 Months I10 - Essential (primary) hypertension, N25.81 - Secondary hyperparathyroidism of renal origin, N18.32 - Chronic kidney disease, stage 3b, D63.1 - Anemia in chronic kidney disease Creatinine 3 Months I10 - Essential (primary) hypertension, N25.81 - Secondary hyperparathyroidism of renal origin, N18.32 - Chronic kidney disease, stage 3b, D63.1 - Anemia in chronic kidney disease Blood Urea Nitrogen 3 Months I10 - Essential (primary) hypertension, N25.81 - Secondary hyperparathyroidism of renal origin, N18.32 - Chronic kidney disease, stage 3b, D63.1 - Anemia in chronic kidney disease Electrolytes 3 Months I10 - Essential (primary) hypertension, N25.81 - Secondary hyperparathyroidism of renal origin, N18.32 - Chronic kidney disease, stage 3b, D63.1 - Anemia in chronic kidney disease Coding Level of Care Code Est Pt Level 4 (66664) Diagnoses Chronic kidney disease, stage 3b N18.32 Anemia in stage 3b chronic kidney disease N18.32; D63.1 Chronic kidney disease stage: stage 3 (moderate) Chronic kidney disease stage 3 subtype: stage 3b (GFR 30-44) Primary hypertension I10 Hypertension type: primary hypertension Secondary hyperparathyroidism (of renal origin) N25.81 Renal calculus N20.0 Cyst of left ovary N83.202 Laterality: left Gross hematuria R31.0 Hematuria type: gross
--- OUTSIDE RECORDS SUMMARY | 2024-12-26 18:55 | XMS_ITS | Encounter Summary ---
Author Organization [facility] Address [address] [place] [address] Care Team Providers Care Development Chemist Name Role Phone Warner Boyer MD Primary Care Provider Mary Alice Gongora RN Unavailable [phone] Emery Mcintosh Unavailable Unavailable Nguyễn Frederick MD Primary Care Provider [phone] Jessee Garcia MD Primary Care Provider [phone] Nguyễn Frederick MD Primary Care Provider [phone] Encounter Details Date Type Department Care Team (Late st Contact Info) Description 06/03/2015 Scanned Document [address] [id number] Provider, Generic Social History Tobacco Use Types [...] on filedocumented in this encounter Care Teams Development Chemist Relationship Specialty Start Date End Date Warner Boyer MD PCP - General Internal Medicine 01/23/15 03/21/19 Nguyễn Frederick MD [address] [place] [address] PCP - General Internal Medicine 03/22/19 03/22/19 Jessee Garcia MD [address] [place] [address] PCP - General Family Medicine 10/24/20 01/28/21 Nguyễn Frederick MD [address] [place] [address] PCP - General Internal Medicine 01/29/21 Mary Alice Roche, DELGADO [address] [address] [facility] Community Housing Director 02/23/17 05/18/21 Emery Mcintosh [address] [place] [address] Ophthalmology 02/09/19 documented as of this encounter
== END 2024-12-26 16:56 | disposition home or self-care (01) ==
LOC: HO.HKAS 16:02
PROVIDERS: PCP Hospitalist; Visit Provider Internal Medicine Nephrology
DX: N18.32 Chronic kidney disease, stage 3b (principal); D63.1 Anemia in chronic kidney disease; I10 Essential (primary) hypertension; N25.81 Secondary hyperparathyroidism of renal origin; N20.0 Calculus of kidney; N83.202 Unspecified ovarian cyst, left side; R31.0 Gross hematuria
CPT/HCPCS: 99214

== ENCOUNTER → 2024-12-26 16:02 | Outpatient (BNVA) | payer MEDICARE, SELFPAY | PROVIDERS: PCP Hospitalist; Visit Provider Internal Medicine Nephrology | DX: N18.32 Chronic kidney disease, stage 3b (principal); D63.1 Anemia in chronic kidney disease; I10 Essential (primary) hypertension; N25.81 Secondary hyperparathyroidism of renal origin; N20.0 Calculus of kidney; N83.202 Unspecified ovarian cyst, left side; R31.0 Gross hematuria | CPT/HCPCS: 99212 ==

== ENCOUNTER 2025-03-06 09:20 | Outpatient (AMB) | payer MEDICARE, SELFPAY ==
--- NOTE | 2025-03-06 09:19 | MHC.OFFVIS ---
Intake Visit Reasons: kidney stone/hematuria Intake Note: PT TODAY PRESENTS FOR: NEW PT KIDNEY STONES/HEMATURIA UROLOGY MEDICATIONS: ALLOPURINOL BLOOD THINNERS: NONE CT DONE: 12/22/24 Forest Products Gatherer Required: No Accompanied by: Daughter Allergies No Known Allergies Allergy (Verified 03/06/25 09:22) HPI Comments Details: Tita is a pleasant Black Guatemalan. She is a patient of Dr. Frederick. She is seen for the following urologic issues - nephrolithiasis Very small stone UA 3+ leuks, negative for hematuria or in office today No prior stone history No family history of stone Imaging reviewed - small 2 mm stone left lower pole Reassurance provided P.r.n. follow-up [facility] Medical History Hypertension Anemia in chronic kidney disease Chronic kidney disease, stage 3b Surgical History History of hysterectomy Family History Mother Heart disease Social History Alcohol intake: never Patient Tobacco Use Status: Never used Tobacco Review of Systems Const Denies chills and Denies fever(s) Card Reports no additional complaints and Denies syncope Resp Denies cough GI Denies abdominal pain and Denies heartburn Reports as per HPI and Denies change in libido Neuro Denies syncope Psych Denies change in libido Endo Denies change in libido Physical Exam Const General: cooperative, healthy appearing, comfortable and no acute distress Orientation/consciousness: patient oriented x3 HEENT Face and sinus: Yes normal facial exam Mouth: moist mucous membranes Neck Neck: Yes normal visual inspection, Yes full ROM and Yes trachea midline Chest Chest palpation & inspection: normal inspection of the chest Resp Effort & Inspection: normal respiratory effort, able to speak in complete sentences and no respiratory distress GI Inspection: Yes normal to inspection Back/Spine/Pelvis Cervical Spine: normal cervical lordosis Thoracic/Lumbar Spine: thoracic and lumbar spine normal to inspection Skin General skin exam: no rashes or lesions noted Neuro General: patient oriented x3, gait normal, tone normal and moves all extremities Extrem General: Yes normal to inspection and Yes capillary refill normal Results AMB Urinalysis, Automated UA Leukoctes 500 Av/uL Last Edit by DANIELLE Demarco on 03/06/25 09:39 UA Nitrite Negative Last Edit by DANIELLE Demarco on 03/06/25 09:39 UA Urobilinogen 0.2 mg/dL Last Edit by DANIELLE Demarco on 03/06/25 09:39 UA Protein 15 mg/dL Last Edit by Raina Barba [facility] on 03/06/25 09:39 UA pH 6.0 Last Edit by Raina Barba [facility] on 03/06/25 09:39 UA Blood 0 Sam/uL Last Edit by Raina Barba [facility] on 03/06/25 09:39 UA Specific [place] 1.015 Last Edit by DANIELLE Demarco on 03/06/25 09:39 UA Ketone Negative Last Edit by Raina Barba [facility] on 03/06/25 09:39 UA Bilirubin 1 mg/dL Last Edit by Raina Barba [facility] on 03/06/25 09:39 UA Glucose 0 mg/dL Last Edit by Raina Barba [facility] on 03/06/25 09:39 Results Reviewed Results Reviewed: Laboratory Last Values Urine pH (Auto) 6.0 03/06/25 09:38 Specific [place] (Auto) 1.015 03/06/25 09:38 Urine Protein (Auto) 15 mg/dL 03/06/25 09:38 Glucose (UA)(Auto) 0 mg/dL 03/06/25 09:38 Urine Ketones (Auto) Negative 03/06/25 09:38 Urine Blood (Auto) 0 Sam/uL 03/06/25 09:38 Urine Nitrite (Auto) Negative 03/06/25 09:38 Urine Bilirubin (Auto) 1 mg/dL 03/06/25 09:38 Urine Urobilinogen (Auto) 0.2 mg/dL 03/06/25 09:38 Leukocyte Esterase (Auto) 500 Av/uL 03/06/25 09:38 Assessment & Plan Assessment & Plan (1) Hematuria: Code(s): R31.9 - Hematuria, unspecified Category: Medical Qualifiers: Hematuria type: gross Qualified Code(s): R31.0 - Gross hematuria (2) Renal calculus: Code(s): N20.0 - Calculus of kidney Category: Medical Plan P.r.n. follow-up Orders: Orders AMB Urinalysis Automated Today Z13.9 - Encounter for screening, unspecified Patient Instructions: This note is constructed using voice recognition software. While every effort has been made to ensure accuracy it desktop support technician errors may have been included. Imaging studies, laboratory and physical exam results were discussed and reviewed in detail. No major barriers to patient understanding were identified. An opportunity to ask questions regarding the treatment plan was provided. All questions were answered. The patient expressed understanding and agreement with the above treatment plan. The patient is aware they should contact our office by phone for worsening of their current condition or the appearance of new urologic symptoms. Compliance is encouraged with any medications and followup testing that is ordered. It is a privilege to participate in the urologic care of your patient. If you have any questions or concerns regarding treatment for the above conditions, or other urologic issues, please do not hesitate to contact me. The office telephone contact is [phone]. Sincerely, Dr Fermin Portillo MD, [facility] - Urology Compassionate Specialist Care for the Genitourinary System Coding Level of Care Code New Pt Level 3 (91486) Diagnoses Gross hematuria R31.0 Hematuria type: gross Renal calculus N20.0
--- OUTSIDE RECORDS SUMMARY | 2025-03-06 10:14 | XMS_ITS ---
Author Name [facility] Organization Unknown Encounters Encounter Type Encounter Reason Primary Diagnosis Location Date Ambulatory [facility] Med ical Group 05/02/2024 Care Team Organization Name Specialty Phone Email Start Date End Da te [facility] CRISTIAN ALAM Primary Care 01/12/2025 [facility]
--- OUTSIDE RECORDS SUMMARY | 2025-03-06 10:14 | XMS_ITS | Encounter Summary ---
Author Organization [facility] Address [address] [place] [address] Care Team Providers Care Granite Fabricator Name Role Phone Warner Boyer MD Primary Care Provider Mary Alice Gongora RN Unavailable Emery Mcintosh Unavailable Unavailable Nguyễn Frederick MD Primary Care Provider [phone] Jessee Garcia MD Primary Care Provider [phone] Nguyễn Frederick MD Primary Care Provider [phone] Encounter Details Date Type Department Care Team (Late st Contact Info) Description 04/27/2016 Scanned Document [address] [phone] Provider, Generic Social History Tobacco Use Types Packs/Day Years Used Date Smoking Tobacco: Former Smokeless Tobacco: Current Comments:end date unknown Alcohol Use Standard Drinks/Week Comments No 0 (1 standard drink = 0.6 oz pur e alcohol) Comments No Sex and Gender Information Value Date Recorded Sex Assigned at Not on file Legal Sex Female 2:58 PM EDT Gender Identity Not on file Sexual Orientation Not on file documented as of this encounter Plan of Treatment Not on file documented as of this encounter Visit Diagnoses Not on filedocumented in this encounter Care Teams Granite Fabricator Relationship Specialty Start Date End Date Warner Boyer MD PCP - General Internal Medicine 01/23/15 03/21/19 Nguyễn Frederick MD [address] [place] [address] PCP - General Internal Medicine 03/22/19 03/22/19 Jessee Garcia MD [address] [place] [address] PCP - General Family Medicine 10/24/20 01/28/21 Nguyễn Frederick MD [address] [place] [address] PCP - General Internal Medicine 01/29/21 Mary Alice Roche, DELGADO [address] [address] [facility] Community Group Director Experience 02/23/17 05/18/21 Emery Mcintosh [address] [place] [address] Ophthalmology 02/09/19 documented as of this encounter
--- OUTSIDE RECORDS SUMMARY | 2025-03-06 10:14 | XMS_ITS | Clinical Summary ---
Author Organization [facility] Address [address] [place] [address] Care Team Providers Care Commercial Lines Account Manager Name Role Phone Emery Mcintosh Unavailable Unavailable Nguyễn Frederick MD Primary Care Provider [phone] Allergies No known active allergies Medications ergocalciferol (VITAMIN D2,DRISDOL) 85219 units Cap 0 5 Active traMADol (ULTRAM) 50 MG tabletIndications :Acute pain of right knee Take 1 tablet (50 mg total) by mouth 3 times daily (every 8 hours) as needed for moderate pain. 30 tablet 0 7 Active XIIDRA 5 % Solution INSTILL 1 DROP IN EACH EYE TWO TIMES A DAY DIRECTED 0 7 Active fluorometholone (FML LIQUIFILM) 0.1 % ophthalmic suspension INSTILL 1 DROP IN EACH EYE FOUR TIMES A DAY 0 7 Active calcitRIOL (ROCALTROL) 0.25 MCG capsule TAKE ONE CAPSULE(S) EVERY 48 HOURS 12 7 Active B Complex Vitamins (VITAMIN B COMPLEX PO) Take 1 capsule by mouth. Active ferrous sulfate 325 (65 FE) MG tablet Take by mouth. Active fluorometholone (FML LIQUIFILM) 0.1 % ophthalmic suspension Apply 1 drop to eye. 7 Active Cholecalciferol (DIALYVITE VITAMIN D3 MAX) 00353 units Tab Take by mouth. Active traMADol (ULTRAM) 50 MG tabletIndications :Lower extremity pain, diffuse, right Take 1 tablet (50 mg total) by mouth 3 times daily (every 8 hours) as needed for moderate pain. 20 tablet 7 Active atorvastatin (LIPITOR) 10 MG tabletIndications :Essential hypertension TAKE ONE TABLET BY MOUTH EVERY DAY 90 tablet 3 8 Active allopurinol (ZYLOPRIM) 300 MG tabletIndications :Gout, unspecified cause, unspecified chronicity, unspecified site TAKE 1 TABLET EVERY DAY. 90 tablet 3 8 Active carvedilol (COREG) 12.5 MG tabletIndications :Chronic combined systolic and diastolic congestive heart failure (HCC) Take 1 tablet (12.5 mg total) by mouth 2 (two) times a day with meals. 60 tablet 5 8 Active amitriptyline (ELAVIL) 100 MG tabletIndications :Depression, unspecified depression type Take 1 tablet (100 mg total) by mouth nightly. 90 tablet 8 Active Sodium Sulfate-Mag Sulfate-KCl (Sutab) 0794-311-722 MG TabIndications:Pe rsonal history of colonic polyps Take 1 box by mouth 2 (two) times a day. 24 tablet 1 Active Active Problems Problem Noted Date Diagnosed Date Personal history of colonic polyps 12/24/2020 Overview (12/24/2020): Added automatically from request for surgery [id number] Lipid disorder 05/26/2016 Encounter for health-related screening [...] multiple lipoprotei n-type hyperlipidemia 10/06/2013 05/26/2016 Immunizations Immunization Administration Dates Next Due Covid-19 mRNA Primary Series Vaccine - Moderna 0.5 mL Full Dose 01/06/2021,12/03/2020 Influenza (AFLURIA/FLUZONE) Inactivated/Split Quadrivalent with Preservative IM 07/05/2013 Influenza Inactivated/Split Preservative Free IM , Family History Medical History Relation Name Comments Other Father gunshot wound Heart failure Mother congestive hea rt failure Breast cancer Sister Diabetes Other relationship un known Relation Name Status Comments Father Mother Sister Other Social History Tobacco Use Types Packs/Day Years Used Date Smoking Tobacco: Former Cigarettes 1 10 1 978 - 1987 Smokeless Tobacco: Never Tobacco Cessation:Ready to [...] 72 01/29/2021 10:37 AM EDT Temperature 35.8 C (96.5 F) 01/29/2021 7:41 AM EDT Respiratory Rate 20 01/29/2021 10:37 AM EDT [...] Patients (1 - 1-dose 75+ series) 2021 COVID-19 Vaccine ( season) 2024 01/06/2021, 12/03/2020 Influenza Vaccine 02/02/2025 07/05/2013, , Advance Care Planning Completed 05/26/2016 Mammogram Discontinued 03/22/2019, 02/03, 02/09/2017, Additional history [...] standard practice guidelines of the ACR BI-RADS [place]. A reference guide is provided below. BREAST [...] on the Mary Score Model is 7%. Several risk assessment tools, including the Mary Score Model and the Breast Cancer Risk Assessment Tool designed at the National Cancer [place] (NCI), are available to help health professionals [...] masses, calcifications or other abnormalities are seen. Compared to the prior exam, there has been no significant interval change. Nguyễn Frederick MD IMG MAMMOGRAPHY ORDERABLES Fin al Result * POCT Glycosylated Hemoglobin (Hb A1C) (12/08/2017 8:56 AM EDT) Hemoglobin A1C 5.9 4.0 - 6.0 % Lot Number [id number] [employer] Senior [employer] [place] Blood specimen (specimen) 12/08/2017 8:56 AM EDT Warner Boyer MD POINT OF CARE TEST ORDERABLES Final Result * (ABNORMAL) Lipid panel with nonHDL (12/06/2017 11:52 AM EDT) Cholesterol, Total 124 <200 mg/dL [facility] Cholesterol, HDL 37(L) >50 mg/dL [facility] Triglycerides 197(H) <150 mg/dL [facility] LDL Cholesterol 60 mg/dL (calc) [facility] Comment: Reference range: <100 Desirable range <100 mg/dL for primary prevention; <70 mg/dL for patients with CHD or diabetic patients with > or = 2 CHD risk factors. LDL-C is now calculated using the Dhruv-Ryan calculation, which is a validated novel method providing better accuracy than the Friedewald equation in the estimation of LDL-C. Dhruv SS et al. BENJAMIN. 2013;310(19): 8813-4485 (http://education.PayTango.Appetas/faq/ZPJ310) Cholesterol/HDL Ratio 3.4 <5.0 (calc) [facility] [...] NO Resulting Agency Comment Performing Organization Information: Site ID: [id number] Name: [facility] Address: [address] [place] [address], [place] [address] Director: Niurka Whitfield MD Warner Boyer MD LAB BLOOD ORDERABLES Final Re sult [facility] [address], [place] [address] * (ABNORMAL) Chem 10 (12/06/2017 11:52 AM EDT) Albumin 4.0 3.6 - 5.1 g/dL [facility] Blood Urea Nitrogen (BUN) 30(H) 7 - 25 mg/dL [facility] Creatinine 2.16(H) 0.60 - 0.93 mg/dL [facility] Comment: For patients >49 years of age, the reference limit for Creatinine is approximately 13% higher for people identified as -[place] Citizen. eGFR Non- 22(L) > OR = 60 mL/min/1. 73m2 [facility] eGFR 26(L) > OR = 60 mL/min/1. 73m2 [facility] Glucose 97 65 - 139 mg/dL [facility] Comment: Non-fasting reference interval Magnesium 2.0 1.5 - [...] NO Resulting Agency Comment Performing Organization Information: Site ID: [id number] Name: [facility] Address: [address] [place] [address], [place] [address] Director: Niurka Whitfield MD us Warner Boyer MD LAB BLOOD ORDERABLES Final Re sult [facility] [address], [place] [address] * DEXA Bone density-Hip/pelvis/spine w/fx eval (Axial) (12/27/2015 10:25 AM EDT) Anatomical Region Laterality Modality Digital Radiogra phy Impressions 12/27/2015 3:33 PM EDT IMPRESSION: Based on the lowest T score value of -1.6 in femoral neck, the patient is placed [...] Narrative 12/27/2015 3:33 PM EDT CLINICAL INDICATION: Screening for osteoporosis Comparison study: Baseline study of 10/04/2006 BONE DENSITOMETRY: TECHNIQUE: Dual energy x-ray absorptiometry of the lumbar spine and left hip is performed. The images are of good technical quality. Attached are summary results. LUMBER SPINE: Bone mineral [...] 6.0 % Hip fracture : 0.7 % us Warner Boyer MD IMG DXA ORDERABLES Final Resu lt * (ABNORMAL) Microalbumin Urine Random W/Creat (07/21/2012 10:21 AM EST) Creatinine, Random Urine 80.00 29.00 - 226 mg/dL [facility] Microalbumin/ Creatinine Ratio see below Unable to perform calculation due to low concentration. 0.00 - 29.00 Ratio [facility] Microalbumin, Urine, Random <12.00(LL) 0.00 - 29.00 mg/L [facility] 07/21/2012 10:2 1 AM EST us Conversion Provider MD [facility] Final Res ult [facility] from Last 3 Months or Most Recently Relevant to Health Maintenance Insurance [facility] MEDICARE Advance Directives * Full Code (Latest Code Status on File) Date Activated Date Inactivated Comments 01/29/2021 7:55 AM * Full Code Date Activated Date Inactivated Comments 12/23/2015 10:44 AM 12/23/2015 2:55 PM Care Teams Commercial Lines Account Manager Relationship Specialty Start Date End Date Nguyễn Frederick MD [address] [place] [address] PCP - General Internal Medicine 01/29/21 Emery Mcintosh [facility] Sheree Tavarez [address] [place], [place] [id number] Ophthalmology 02/09/19
--- OUTSIDE RECORDS SUMMARY | 2025-03-06 10:14 | XMS_ITS | Encounter Summary ---
Author Organization [facility] Address [address] [place] [address] Care Team Providers Care Digital Developer Name Role Phone Warner Boyer MD Primary Care Provider Mary Alice Gongora RN Unavailable Emery Mcintosh Unavailable Unavailable Nguyễn Frederick MD Primary Care Provider [phone] Jessee Garcia MD Primary Care Provider [phone] Nguyễn Frederick MD Primary Care Provider [phone] Reason for Visit * Reason Comments Medication Refill Encounter Details Date Type Department Care Team (Late st Contact Info) Description 10/15/[address] [place] [id number] Warner Boyer MD Insomnia Social History Tobacco [...] unspecified documented in this encounter Care Teams Digital Developer Relationship Specialty Start Date End Date Warner Boyer MD PCP - General Internal Medicine 01/23/15 03/21/19 Nguyễn Frederick MD [address] [place] [address] PCP - General Internal Medicine 03/22/19 03/22/19 Jessee Garcia MD [address] [place] [address] PCP - General Family Medicine 10/24/20 01/28/21 Nguyễn Frederick MD [address] [place] [address] PCP - General Internal Medicine 01/29/21 Mary Alice Roche, RN [address] [address] [facility] Community Retort Kiln Burner 02/23/17 05/18/21 Emery Mcintosh [address] [place] [address] Ophthalmology 02/09/19 documented as of this encounter
--- OUTSIDE RECORDS SUMMARY | 2025-03-06 10:14 | XMS_ITS | Encounter Summary ---
Author Organization [facility] Address [address] [place] [address] Care Team Providers Care Forming Tube Selector Name Role Phone Warner Boyer MD Primary Care Provider Mary Alice Gongora RN Unavailable [phone] Emery Mcintosh Unavailable Unavailable Nguyễn Frederick MD Primary Care Provider Jessee Garcia MD Primary Care Provider [phone] Nguyễn Frederick MD Primary Care Provider [phone] Encounter Details Date Type Department Care Team (Late st Contact Info) Description 06/03/2015 Scanned Document [address] [phone] Provider, Generic Social History Tobacco Use Types [...] on filedocumented in this encounter Care Teams Forming Tube Selector Relationship Specialty Start Date End Date Warner Boyer MD PCP - General Internal Medicine 01/23/15 03/21/19 Nguyễn Frederick MD [address] [place] [address] PCP - General Internal Medicine 03/22/19 03/22/19 Jessee Garcia MD [address] [place] [address] PCP - General Family Medicine 10/24/20 01/28/21 Nguyễn Frederick MD [address] [place] [address] PCP - General Internal Medicine 01/29/21 Mary Alice Roche, DELGADO [address] [address] [facility] Community Sustainability Officer 02/23/17 05/18/21 Emery Mcintosh [address] [place] [address] Ophthalmology 02/09/19 documented as of this encounter
--- OUTSIDE RECORDS SUMMARY | 2025-03-06 10:14 | XMS_ITS | Encounter Summary ---
Author Organization [facility] Address [address] [place] [address] Care Team Providers Care Library Clerk Talking Books Name Role Phone Warner Boyer MD Primary Care Provider Mary Alice Gongora RN Unavailable [phone] Emery Mcintosh Unavailable Unavailable Nguyễn Frederick MD Primary Care Provider [phone] Jessee Garcia MD Primary Care Provider [phone] Nguyễn Frederick MD Primary Care Provider [phone] Encounter Details Date Type Department Care Team (Late st Contact Info) Description 10/05/2016 Scanned Document [address] [phone] Provider, Generic Social History Tobacco [...] on filedocumented in this encounter Care Teams Library Clerk Talking Books Relationship Specialty Start Date End Date Warner Boyer MD PCP - General Internal Medicine 01/23/15 03/21/19 Nguyễn Frederick MD [address] [place] [address] PCP - General Internal Medicine 03/22/19 03/22/19 Jessee Garcia MD [address] [place] [address] PCP - General Family Medicine 10/24/20 01/28/21 Nguyễn Frederick MD [address] [place] [address] PCP - General Internal Medicine 01/29/21 Mary Alice Roche, DELGADO [address] [address] [facility] Community Auto Rental Clerk 02/23/17 05/18/21 Emery Mcintosh [address] [place] [address] Ophthalmology 02/09/19 documented as of this encounter
--- OUTSIDE RECORDS SUMMARY | 2025-03-06 10:14 | XMS_ITS | Encounter Summary ---
Author Organization [facility] Address [address] [place] [address] Care Team Providers Care Scrap Crane Operator Name Role Phone Warner Boyer MD Primary Care Provider Mary Alice Gongora RN Unavailable Emery Mcintosh Unavailable Unavailable Nguyễn Frederick MD Primary Care Provider [phone] Jessee Garcia MD Primary Care Provider [phone] Nguyễn Frederick MD Primary Care Provider [phone] Encounter Details Date Type Department Care Team (Late st Contact Info) Description 05/31/2017 Scanned Document [address] [phone] Provider, Generic Social History Tobacco [...] on filedocumented in this encounter Care Teams Scrap Crane Operator Relationship Specialty Start Date End Date Warner Boyer MD PCP - General Internal Medicine 01/23/15 03/21/19 Nguyễn Frederick MD [address] [place] [address] PCP - General Internal Medicine 03/22/19 03/22/19 Jessee Garcia MD [address] [place] [address] PCP - General Family Medicine 10/24/20 01/28/21 Nguyễn Frederick MD [address] [place] [address] PCP - General Internal Medicine 01/29/21 Mary Alice Roche, DELGADO [address] [address] [facility] Community Produce Associate 02/23/17 05/18/21 Emery Mcintosh [address] [place] [address] Ophthalmology 02/09/19 documented as of this encounter
--- OUTSIDE RECORDS SUMMARY | 2025-03-06 10:14 | XMS_ITS | Patient Health Record ---
Author Organization [facility] Address [address] [facility] [address] [place] [address] Care Team Providers Care Electronics Assembler And Tester Name Role Phone Nguyễn Frederick Primary Care [...] Coverage End Date [facility] [address] [place] [address] [id number] Liana Mayes Self - patient is the [...]
--- OUTSIDE RECORDS SUMMARY | 2025-03-06 10:14 | XMS_ITS | Encounter Summary ---
Author Organization [facility] Address [address] [place] [address] Care Team Providers Care Glaciologist Name Role Phone Warner Boyer MD Primary Care Provider Mary Alice Gongora RN Unavailable Emery Mcintosh Unavailable Unavailable Nguyễn Frederick MD Primary Care Provider [phone] Jessee Garcia MD Primary Care Provider [phone] Nguyễn Frederick MD Primary Care Provider [phone] Encounter Details Date Type Department Care Team (Late st Contact Info) Description 09/28/2017 Scanned Document [address] [phone] Provider, Generic Social History Tobacco [...] on filedocumented in this encounter Care Teams Glaciologist Relationship Specialty Start Date End Date Warner Boyer MD PCP - General Internal Medicine 01/23/15 03/21/19 Nguyễn Frederick MD [address] [place] [address] PCP - General Internal Medicine 03/22/19 03/22/19 Jessee Garcia MD [address] [place] [address] PCP - General Family Medicine 10/24/20 01/28/21 Nguyễn Frederick MD [address] [place] [address] PCP - General Internal Medicine 01/29/21 Mary Alice Roche, DELGADO [address] [address] [facility] Community Braided Rug Maker 02/23/17 05/18/21 Emery Mcintosh [address] [place] [address] Ophthalmology 02/09/19 documented as of this encounter
--- OUTSIDE RECORDS SUMMARY | 2025-03-06 10:14 | XMS_ITS | Encounter Summary ---
Author Organization [facility] Address [address] [place] [address] Care Team Providers Care Hospitality Coordinator Name Role Phone Warner Boyer MD Primary Care Provider Mary Alice Gongora RN Unavailable [phone] Emery Mcintosh Unavailable Unavailable Nguyễn Frederick MD Primary Care Provider [phone] Jessee Garcia MD Primary Care Provider [phone] Nguyễn Frederick MD Primary Care Provider [phone] Encounter Details Date Type Department Care Team (Late st Contact Info) Description 09/30/2015 Scanned Document [address] [phone] Provider, Generic Social History Tobacco [...] on filedocumented in this encounter Care Teams Hospitality Coordinator Relationship Specialty Start Date End Date Warner Boyer MD PCP - General Internal Medicine 01/23/15 03/21/19 Nguyễn Frederick MD [address] [place] [address] PCP - General Internal Medicine 03/22/19 03/22/19 Jessee Garcia MD [address] [place] [address] PCP - General Family Medicine 10/24/20 01/28/21 Nguyễn Frederick MD [address] [address] PCP - General Internal Medicine 01/29/21 Mary Alice Roche, RN [address] [address] [facility] Community Veneer Grader 02/23/17 05/18/21 Emery Mcintosh [address] [place] [address] Ophthalmology 02/09/19 documented as of this encounter
--- OUTSIDE RECORDS SUMMARY | 2025-03-06 10:14 | XMS_ITS | Clinical Summary ---
Author Organization [facility] Address [address] [facility] [address] [place] [address] Phone Care Team Providers Care Jewelry Engraver Name Role Phone Warner Boyer MD Primary Care Provider U navailable Allergies No known active allergies Medications FERROUS SULFATE ORAL Take by mouth. Active b complex vitamins capsule Take 1 capsule by mouth daily. Active cholecalciferol (DIALYVITE VITAMIN D3 MAX) 50,000 unit tablet Take by mouth once a week. Active AMITRIPTYLINE HCL (AMITRIPTYLINE ORAL) Take by mouth. Active fluorometholone (FML LIQUIFILM) 0.1 % ophthalmic suspension Place 1 drop into each eye 4 (four) times a day. 5 mL 5 10/12/2016 Active Family History Medical History Relation Comments Hypertension Mother Cancer Sister Relation Status Comments Mother Sister Social History Tobacco Use Types Packs/Day Years Used Date Smoking Tobacco: Never Alcohol Use Standard Drinks/Week Comments No 0 (1 standard drink = 0.6 oz pur e alcohol) Education Answer Date Recorded Are you interested in more education? Not on carmen e 10/30/2022 Are you concerned about learning? Not on file 10/30/2022 No 10/30/2022 No 10/30/2022 Digital Access Answer Date Recorded No 11/30/2022 No 11/30/2022 No 11/30/2022 Reliable internet access at home? Not on file 11/30/2022 Device with a working camera? Not on file Comments Unknown Sex and Gender Information Value Date Recorded Sex Assigned at Not on file Legal Sex Female 2:48 PM EDT Gender Identity Not on file Sexual Orientation Not on file Plan of Treatment Health Maintenance Due Date Last Done Comments Adult Td,Tdap Booster 1945 LIPID PANEL 1946 DEPRESSION SCREENING 1958 HEPATITIS C SCREENING 1964 PNEUMOCOCCAL VACCINES (50+ years) (1 of 1 - PCV) 1996 ZOSTER VACCINES (1 of 2) 1996 OSTEOPOROSIS SCREENING INITI AL (ONE-TIME) 12/06/2011 RSV VACCINE (1 - 1-dose 75+ series) 2021 INFLUENZA VACCINE (#1) 2025 07/05/2013 COVID-19 VACCINE (3 - 2024-2 6 season) 2025 01/06/2021, 12/03/2020 SMOKING STATUS SCREENING (On ce After 26 Yrs) Completed 10/12/2016 HEPATITIS A VACCINES Aged Out No long er eligible based on patient's age to complete this topic HIB VACCINES Aged Out No longer eligi ble based on patient's age to complete this topic MENINGOCOCCAL VACCINES (ACWY) Aged Out No longer eligible based on patient's age to complete this topic MENINGOCOCCAL VACCINES (B) Aged Out N o longer eligible based on patient's age to complete this topic Medical Devices Not on file Insurance MEDICARE PART A & B [facility] A & [place] [address] [place] [address] OUT [facility]PO MEDICARE PART A & B [facility] OUT OF STATE PPO MEDICARE PART A & B [facility] PPO MEDICARE PART A & B [facility] PPO MEDICARE PART A & B [facility] PPO MEDICARE PART A & [place] [address] [place] [address] PPO MEDICARE PART A & B PPO MEDICARE PART A & B [facility] PPO Care Teams Jewelry Engraver Relationship Specialty Start Date End Date Warner Boyer MD PCP - General Internal Medicine 05/26/16 Additional Source Comments The information contained in this document represents components of the legal health record. It is not the complete legal health record.[facility]
--- OUTSIDE RECORDS SUMMARY | 2025-03-06 10:14 | XMS_ITS | Encounter Summary ---
Author Organization [facility] Address [address] [place] [address] Care Team Providers Care Ply Splicer Name Role Phone Mary Alice Roche RN Unavailable [phone] Emery Mcintosh Unavailable Unavailable Jessee Garcia MD Primary Care Provider Nguyễn Frederick MD Primary Care Provider [phone] Encounter Details Date Type Department Care Team (Late st Contact Info) Description 01/28/2021 Scanned Document [facility] General Surgery [address] [phone] Ced Bustos MD [address] [place] [address] Social History Tobacco Use Types Packs/Day [...] on filedocumented in this encounter Care Teams Ply Splicer Relationship Specialty Start Date End Date Jessee Garcia MD [address] [place] [address] PCP - General Family Medicine 10/24/20 01/28/21 Nguyễn Frederick MD [address] [place] [address] PCP - General Internal Medicine 01/29/21 Mary Alice Roche, DELGADO [address] [address] [facility] Community Pan Cleaner 02/23/17 05/18/21 Emery Mcintosh [address] [place] [address] Ophthalmology 02/09/19 documented as of this encounter
--- OUTSIDE RECORDS SUMMARY | 2025-03-06 10:14 | XMS_ITS | Clinical Summary ---
Author Organization [facility] Address [address] [place] [address] Phone Care Team Providers Care Aircraft Assembler Name Role Phone Nguyễn Frederick MD Primary Care Provider [phone] Allergies No known active allergies Medications * [...] tablet 11 01/18/2023 Active ergocalciferol 1.25 MG (09148 UT) capsule TAKE ONE CAPSULE BY MOUTH ONCE A MONTH 3 capsule 10 07/08/2023 Active Active Problems Problem Noted Date Diagnosed Date Recurrent and persistent hem aturia with minimal change lesion 07/22/2021 Stage 3b chronic kidney disease 06/16/2021 Hypertension 03/17/2021 History of polyp of colon 12/24/2020 Overview (03/17/2021): Added automatically from request for surgery [id number] 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 Vitamin D [...] 11/25/2020 Type 2 diabetes mellitus 09/25/2013 Immunizations Immunization Administration Dates Next Due Influenza TIV (IM) [...] Due Date Last Done Comments Pneumococcal Vaccine: 50+ Ye ars (1 of 2 - PCV) 1964 Influenza Vaccine (#1) 2025 07/05/2013 Colorectal Cancer Screening: Colonoscopy Discontinued 01/29/2021 Hepatitis B Vaccine Aged Out No longe r eligible based on patient's age to complete this topic Insurance [employer] MCR Adv PPO ([id number]) [employer] MCR Adv PPO ([id number]) Care Teams Aircraft Assembler Relationship Specialty Start Date End Date Nguyễn Frederick MD [address] [place] [id number] PCP - General Internal Medicine 11/25/20
--- OUTSIDE RECORDS SUMMARY | 2025-03-06 10:14 | XMS_ITS | Encounter Summary ---
Author Organization [facility] Address [address] [place] [address] Care Team Providers Care Python Programmer Name Role Phone Warner Boyer MD Primary Care Provider Mary Alice Gongora RN Unavailable [phone] Emery Mcintosh Unavailable Unavailable Nguyễn Frederick MD Primary Care Provider [phone] Jessee Garcia MD Primary Care Provider [phone] Nguyễn Frederick MD Primary Care Provider [phone] Reason for Visit * Reason Comments Medication Refill Encounter Details Date Type Department Care Team (Late st Contact Info) Description 06/06/[address] [place] [phone] Warner Boyer MD Essential hypertension Social History [...] hypertension documented in this encounter Care Teams Python Programmer Relationship Specialty Start Date End Date Warner Boyer MD PCP - General Internal Medicine 01/23/15 03/21/19 Nguyễn Frederick MD [address] [place] [address] PCP - General Internal Medicine 03/22/19 03/22/19 Jessee Garcia MD [address] [place] [address] PCP - General Family Medicine 10/24/20 01/28/21 Nguyễn Frederick MD [address] [place] [address] PCP - General Internal Medicine 01/29/21 Mary Alice Roche, [place] [address] [address] [facility] Community Master Fire Control Technician 02/23/17 05/18/21 Emery Mcintosh [address] [place] [address] Ophthalmology 02/09/19 documented as of this encounter
--- OUTSIDE RECORDS SUMMARY | 2025-03-06 10:14 | XMS_ITS | Encounter Summary ---
Author Organization [facility] Address [address] [place] [address] Care Team Providers Care Substitute Nurse Name Role Phone Warner Boyer MD Primary Care Provider Mary Alice Gongora RN Unavailable [phone] Emery Mcintosh Unavailable Unavailable Nguyễn Frederick MD Primary Care Provider [phone] Jessee Garcia MD Primary Care Provider [phone] Nguyễn Frederick MD Primary Care Provider [phone] Reason for Visit * Reason Comments Medication Refill Encounter Details Date Type Department Care Team (Late st Contact Info) Description [address] [place] [phone] Warner Boyer MD Essential hypertension Social History [...] hypertension documented in this encounter Care Teams Substitute Nurse Relationship Specialty Start Date End Date Warner Boyer MD PCP - General Internal Medicine 01/23/15 03/21/19 Nguyễn Frederick MD [address] [place] [address] PCP - General Internal Medicine 03/22/19 03/22/19 Jessee Garcia MD [address] [place] [address] PCP - General Family Medicine 10/24/20 01/28/21 Nguyễn Frederick MD [address] [place] [address] PCP - General Internal Medicine 01/29/21 Mary Alice Roche, [place] [address] [address] [facility] Community Bone Plant Supervisor 02/23/17 05/18/21 Emery Mcintosh [address] [place] [address] Ophthalmology 02/09/19 documented as of this encounter
--- OUTSIDE RECORDS SUMMARY | 2025-03-06 10:14 | XMS_ITS | Patient Health Record ---
Author Organization [place] Address [address] [place] [address] Care Team Providers Care Rehabilitation Medicine Physician Name Role Phone RAY ROBERTSON Primary Care Provider [phone] ShantalJt reidtorito Unavailable [phone] GisselleEli marcos Unavailable [phone] Allergies No Known Allergies Results Component Value Reference Range Notes Vitamin B12 and Folate-28809 0 Reviewed date:02/06/2025 08:40:42 AM Interpretation: Performing Lab:[facility], [facility], [place], Phone - [phone], Director - MDJodry Notes/Report: Test(s) 679471-Yycaumqbmyysg Acid, Serum was developed and its performance characteristics determined by [employer]. It has not been cleared or approved by the Food and Drug Administration. Vitamin B12 170 484-6689 pg/mL Folate (Folic Acid), Serum 7.3 >3.0 ng/mL A serum folate concentration of less than 3.1 ng/mL is considered to represent clinical deficiency. Albumin/Creatinine Ratio,Uri [id number] Reviewed date:12/04/2024 03:21:59 PM Interpretation: Performing Lab:[facility], [address], [place], Phone - [phone], Director - MDJodry Notes/Report: Creatinine, Urine 130.4 Not Estab. mg/dL Albumin, Urine 3.8 Not Estab. ug/mL Alb/Creat Ratio 3 0-29 mg/g creat Normal: 0 - 29 Moderately increased: 30 - 300 Severely increased: >300 TSH+Free [id number] Reviewed date:02/06/2025 08:40:47 AM Interpretation: Performing Lab:Mitch Gomes, [address] [facility], Phone - [phone], Director - Charly Notes/Report: Test(s) 325674-Dvgiiafrkzndg Acid, Serum was developed and its performance characteristics determined by [employer]. It has not been cleared or approved by the Food and Drug Administration. TSH 2.370 0.450-4.500 uIU/mL T4,Free(Direct) 1.25 0.82-1.77 ng/dL Lipid Panel With LDL/HDL Rat [id number] Reviewed date:12/04/2024 03:21:50 PM Interpretation: Performing Lab:Mitch Gomes, [address] [facility], Phone - [phone], Director - Charly Notes/Report: Cholesterol, Total 137 100-199 mg/dL Triglycerides 123 0-149 mg/dL HDL Cholesterol 40 >39 mg/dL VLDL Cholesterol Augusto 22 5-40 mg/dL LDL Chol Calc (NIH) 75 0-99 mg/dL LDL/HDL Ratio 1.9 0.0-3.2 ratio LDL/HDL Ratio Men Women 1/2 Avg.Risk 1.0 1.5 Avg.Risk 3.6 3.2 2X Avg.Risk 6.2 5.0 3X Avg.Risk 8.0 6.1 Comp. Metabolic Panel (13)-3 [id number] Reviewed date:12/04/2024 03:23:09 PM Interpretation: Performing Lab:Mitch Gomes, [address] [facility], [place], Phone - [phone], Director - Abilioy Notes/Report: Glucose 92 70-99 mg/dL BUN 22 8-27 mg/dL Creatinine 1.81 0.57-1.00 mg/dL eGFR 28 >59 mL/min/1.73 BUN/Creatinine Ratio 12 12-28 Sodium 139 134-144 mmol/L Potassium 4.8 3.5-5.2 mmol/L Chloride 105 96-106 mmol/L Carbon Dioxide, Total 19 20-29 mmol/L Calcium 9.6 8.7-10.3 mg/dL Protein, Total 7.6 6.0-8.5 g/dL Albumin 4.5 3.8-4.8 g/dL Globulin, Total 3.1 1.5-4.5 g/dL Bilirubin, Total 0.5 0.0-1.2 mg/dL Alkaline Phosphatase 104 44-121 IU/L AST (SGOT) 14 0-40 IU/L Methylmalonic Acid, Serum-70 6961 Reviewed date:02/06/2025 08:40:55 AM Interpretation: Performing Lab:[facility] [place], [address] [place] [address], [place], Phone - [phone], Director - [facility] Notes/Report: Test(s) 823013-Bdixdummubplu Acid, Serum was developed and its performance characteristics determined by [employer]. It has not been cleared or approved by the Food and Drug Administration. Methylmalonic Acid, Serum 357 0-378 nmol/L Homocyst(e)ine-338453 Reviewed date:02/06/2025 08:41:01 AM Interpretation: Performing Lab:[facility] [place], [address] [place] [address], [place], Phone - [phone], Director - [facility] Notes/Report: Test(s) 517095-Asmwbbcuwldwz Acid, Serum was developed and its performance characteristics determined by [email or web address]. It has not been cleared or approved by the Food and Drug Administration. Homocyst(e)ine 26.1 0.0-19.2 umol/L Reason For Referral Reason Please evaluate and treat Please evaluate and treat Diagnosis 1 Pain in right hip (M 25.551) Referral Organization [facility] Referring Provider First Name Tommy Referring Provider Last Name Gisselle Referred Provider Specialty Physical The rapist General Notes Please call the shine ent to schedule the appointment, [facility] contact them at [phone], Susana Romeo 10/27/2024 04:27:51 PM > Referral Priority Routine Reason Please evaluate and treat Please evaluate and treat Diagnosis 1 Acute pain of right knee (M25.561) Referral Organization [facility] Referring Provider First Name Tommy Referring Provider Last Name Willie Referred Provider Specialty Orthopedic S urgery General Notes Please call the shine ent to schedule the appointment, [facility] contact them at [phone] Charmain 10/27/2024 04:11:00 PM > Referral Priority Routine Reason MMSE score of 21, co mplaints of memory disturbance Please evaluate and treat Diagnosis 1 Complaints of memory disturbance (R41.3) Referral Organization [facility] Referring Provider First Name Eli Referring Provider Last Name Willie Referred Provider Specialty Neuropsychia try General Notes Please call the shine ent to schedule the appointment, Encounter created and SMS sent to the pt. Nathalia Romeoin 12/25/2024 04:19:04 PM > Referral Priority Routine Reason Evaluation and Manag ement Diagnosis 1 Other ovarian cyst, left side (N83.292) Referral Organization [facility] Referring Provider First Name RAY Referring Provider Last Name TINA Referring Provider Speciality Internal M edicine Referred Provider Specialty Nurses Assistant General Notes Referral sent to [facility] ([facility] [facility], [address], [place] [address] ) - Office will call patient for scheduling.Faye Latraya 01/12/2025 08:18:15 AM > Referral Priority Routine Reason Evaluation and Manag ement Diagnosis 1 Cardiomegaly (I51.7) Referral Organization [facility] Referring Provider First Name RAY Referring Provider Last Name AILYN Referring Provider Speciality Internal M edicine Referred Provider Specialty Cardiology General Notes Referral sent to [facility] ([address], [place] [address] - Office will call patient for scheduling.Faye Latraya 01/12/2025 08:15:57 AM > Referral Priority Routine Medications Medication SIG (Take, Route, Frequency, Duration) Notes Start Date End Date Status Acetaminophen 8 Hour 650 MG 2 tablets as needed Orally every 8 hrs; Duration: 30 days 10/25/2024 Active Calcitriol 0.25 MCG 1 capsule Orally harsh ry other day; Duration: 30 days Active Memantine HCl 10 MG 1 tablet Orally Once a day; Duration: 30 days 02/12/2025 Active Atorvastatin Calcium 10 MG 1 tablet Oral ly Once a day; Duration: 90 days Active Allopurinol 300 MG 1 tablet Orally Once a day; Duration: 90 days Active Zoloft 25 MG 1 tablet Orally Once a day; Duration: 30 days 02/12/2025 Active Carvedilol 25 MG 1 tablet with food O rally twice a day; Duration: 90 days Active amLODIPine Besylate 10 MG 1 tablet Orall y Once a day; Duration: 30 days 03/23/2023 Active Iron 325 (65 Fe) MG 1 tablet Orally twic e daily; Duration: 90 days Active Diclofenac Sodium 3 % 1 application Exte rnally Twice a day; Duration: 30 days 08/19/2022 Active Immunizations Vaccine Route Administration Date Status [...] Status Risk Notes Problem Vitamin D deficiency (64915439) Vitamin D deficiency, unspecified (E55.9) Active confirmed Problem Morbid obesity (disorder) (196626298) Morbid (severe) obesity due to excess calories (E66.01) Active confirmed Problem Mixed hyperlipidemia (161389095) Mixed hyperlipidemia (E78.2) Active confirmed Problem Essential hypertension (92745981) Essential (primary) hypertension (I10) Active confirmed Problem Cardiomegaly (6900502) Cardiomegaly (I51.7) Active confirmed Problem Disorder of skin AND/OR subcutaneous tissue (20051246) Disorder of the skin and subcutaneous tissue, unspecified (L98.9) Active confirmed Problem Chronic gouty arthritis (65094476) Chronic gout, unspecified, without tophus (tophi) (M1A.9XX0) Active confirmed Problem Pain of right shoulder region (finding) (5157988194) Pain in right shoulder (M25.511) Active confirmed Problem Left side sciatica (172111890802185) Sciatica, left side (M54.32) Active confirmed Problem Age-related osteoporosis (452922520) Age-related osteoporosis without current pathological fracture (M81.0) Active confirmed Problem Chronic kidney disease (304042810) Chronic kidney disease, unspecified (N18.9) Active confirmed Problem Heart murmur (finding) (50260400) Cardiac murmur, unspecified (R01.1) Active confirmed Problem Amnesia (64303451) Complaints of memory disturbance (R41.3) Active confirmed Problem Chronic kidney disease stage 3A (disorder) (722235920) Chronic kidney disease, stage 3a (N18.31) Active confirmed Vital Signs Heart Rate 111 /min 12/18/2024 Temperature 96 degrees Fahrenheit 12/18/2024 Blood pressure diastolic 60 mm Hg 12/18/2024 Oximetry 96 % 12/18/2024 Height 64 in 12/18/2024 Blood pressure systolic 140 mm Hg 12/18/2024 Weight 279.4 lbs 12/18/2024 BMI 47.95 kg/m2 12/18/2024 Encounters Encounter Location Date Provider Diagnosis [address] [place] [address] 09/01/2024 Aroosa Alam Essential (primary) hypertension I10 ; Chronic kidney disease, stage 3a N18.31 ; Mixed hyperlipidemia E78.2 ; Encounter for general adult medical examination without abnormal findings Z00.00 ; Age-related osteoporosis without current pathological fracture M81.0 and Encounter for screening mammogram for malignant neoplasm of breast Z12.[address] [place] [address] 10/25/2024 Ghadeer Mazloum Acute pain of right knee M25.561 and Pain in right hip M25.[address] [place] [address] 12/18/2024 Ghadeer Mazloum Complaints of memory disturbance R41.[address] [place] [address] 06/23/2024 BELL GUL [address] [place] [address] 07/25/2024 BELL GUL Essential (primary) hypertension I10 [address] [place] [address] 09/05/2024 BELL GUL Age-related osteoporosis without current pathological fracture M81.[address] [place] [address] 09/06/2024 RAY ROBERTSON Encounter for screen ing mammogram for malignant neoplasm of breast Z12.[address] [place] [address] 10/13/[address] [place] [address] 10/26/[address] [place] [address] 11/03/2024 RAY ROBERTSON Encounter for genera l adult medical examination without abnormal findings Z00.[address] [place] [address] 12/25/[address] [place] [address] 01/12/2025 BELL GU Cardiomegaly I51.[address] [place] [address] 01/24/[address] [place] [address] 02/08/[address] [place] [address] 02/12/2025 RAY WILDER Complaints of memory disturbance R41.[address] [place] [address] 02/21/[address] [place] [address] 12/18/2024 RAY ROBERTSON Assessments Encounter Date Diagnosis (ICD Code) Assessment Notes Treatment Notes Treatment Clinical Notes Section Notes 07/25/2024 Essential (primary) hypertension (ICD-10 - I10) 09/01/2024 Essential (primary) hypertension (ICD-10 - I10) 78-year-old lady with history of hyperlipidemia chronic kidney disease stage III, hypertension is here today for annual wellness visit. Plan as following Hypertension, blood pressure systolic is slightly elevated 140/78 , I repeated it and it was 150/75 discussed with patient she has not taken her medication this morning She is planning to go home and then take her morning pills appeared she was seen by our law firm receptionist Dr. Freeman yesterday and had lab work done. We will check on that otherwise will order a basic metabolic panel and albumin creatinine ratio. continue Coreg continue amlodipine EKG completed today, reviewed by me shows normal sinus rhythm without any acute ST changes heart beat 100 per minute, no bundle-branch block, [id number], evidence of multiple premature ventricular complexes Hyperlipidemia, check a lipid profile she is on statins which will be continued. chronic kidney disease stage III currently stable followed by nephrology Dr. Freeman Anxiety and depression PHQ 9 is 0 she denies any anxiety depression patient is not a smoker and she does not drink She feels safe at home no recent fall Advanced health planning her healthcare proxy is her daughter Ro Rm patient is a full code BMI is on the higher side, dietary education given preventive CARE she does not want any vaccinations pneumonia or flu mammogram referral given Bone density testing referral given Eye exam due 2024 Dental exam every 6 months 09/05/2024 Age-related osteoporosis without current pathological fracture (ICD-10 - M81.0) 09/06/2024 Encounter for screening mammogram for malignant neoplasm of breast (ICD-10 - Z12.31) 10/25/2024 Acute pain of right knee (ICD-10 - M25.561) Liana is a 78-year-old lady with CKD stage III and she follows up with Dr. Elizalde, hypertension, hyperlipidemia and gout here for her Right knee pain. Plan as follows Right knee pain - She had today done in the past which did show severe arthritis of the right knee. Physical examination is remarkable for mild tenderness. No erythema or edema are noted. Low suspicion for gout as patient is on allopurinol daily. She does also endorse hip pain with the knee pain. Is septic arthritis given that it is not a new onset of knee pain, no fever, chills, erythema, edema no severe pain with range of motion, and she is able to ambulate on the right leg. We will get an x-ray of the right knee And right hip. Start the patient on Tylenol to take 2 tabs in the morning 2 tabs at night with 1 tab in the afternoon. I have also referred patient to physical therapy and orthopedic General concerns have been discussed I have rendered the services for this patient under direct supervision of Dr. Robertson, who did not see the patient but was available upon request 10/25/2024 Pain in right hip (ICD-10 - M25.551) Liana is a 78-year-old lady with CKD stage III and she follows up with Dr. Elizalde, hypertension, hyperlipidemia and gout here for her Right knee pain. Plan as follows Right knee pain - She had today done in the past which did show severe arthritis of the right knee. Physical examination is remarkable for mild tenderness. No erythema or edema are noted. Low suspicion for gout as patient is on allopurinol daily. She does also endorse hip pain with the knee pain. Is septic arthritis given that it is not a new onset of knee pain, no fever, chills, erythema, edema no severe pain with range of motion, and she is able to ambulate on the right leg. We will get an x-ray of the right knee And right hip. Start the patient on Tylenol to take 2 tabs in the morning 2 tabs at night with 1 tab in the afternoon. I have also referred patient to physical therapy and orthopedic General concerns have been discussed I have rendered the services for this patient under direct supervision of Dr. Robertson, who did not see the patient but was available upon request 11/03/2024 Encounter for general adult medical examination without abnormal findings (ICD-10 - Z00.00) 12/18/2024 Complaints of memory disturbance (ICD-10 - R41.3) Liana is a 79-year-old lady with CKD stage IIIand she follows up with Dr. Elizalde, hypertension, hyperlipidemia and gout here for memory test. Plan as follows: Complaints of memory disturbance. It has been progressive. MMSE is 21. DDx possibly secondary to vascular dementia. She lives with her daughter. We will obtain blood work to r/o reversible causes. I have also referred patient to neuropsychiatry. As for now, advised on brain stimulation activities and exercising. HTN. BP on repeat is within acceptable range. She was recently seen by Dr. Elizalde and BP was within normal limit. COntinue on the same regimen. Weight loss and reducing salt intake are recommended. Recent comp shows GFR of 29, she is not in volume overload. Avoid NSAIDs and nephrotoxin agents. Hematuria. She is getting worked up by [facility], she has a CT of abdomen/pelvis coming up this week. General concerns have been discussed I have rendered the services for this patient under direct supervision of Dr. Robertson, who did not see the patient but was available upon request 01/12/2025 Cardiomegaly (ICD-10 - I51.7) 02/12/2025 Complaints of memory disturbance (ICD-10 - R41.3) 09/01/2024 Chronic kidney disease, stage 3a (ICD-10 - N18.31) 78-year-old lady with history of hyperlipidemia chronic kidney disease stage III, hypertension is here today for annual wellness visit. Plan as following Hypertension, blood pressure systolic is slightly elevated 140/78 , I repeated it and it was 150/75 discussed with patient she has not taken her medication this morning She is planning to go home and then take her morning pills appeared she was seen by our law firm receptionist Dr. Freeman yesterday and had lab work done. We will check on that otherwise will order a basic metabolic panel and albumin creatinine ratio. continue Coreg continue amlodipine EKG completed today, reviewed by me shows normal sinus rhythm without any acute ST changes heart beat 100 per minute, no bundle-branch block, [id number], evidence of multiple premature ventricular complexes Hyperlipidemia, check a lipid profile she is on statins which will be continued. chronic kidney disease stage III currently stable followed by nephrology Dr. Freeman Anxiety and depression PHQ 9 is 0 she denies any anxiety depression patient is not a smoker and she does not drink She feels safe at home no recent fall Advanced health planning her healthcare proxy is her daughter Ro Rm patient is a full code BMI is on the higher side, dietary education given preventive CARE she does not want any vaccinations pneumonia or flu mammogram referral given Bone density testing referral given Eye exam due 2024 Dental exam every 6 months 09/01/2024 Mixed hyperlipidemia (ICD-10 - E78.2) 78-year-old lady with history of hyperlipidemia chronic kidney disease stage III, hypertension is here today for annual wellness visit. Plan as following Hypertension, blood pressure systolic is slightly elevated 140/78 , I repeated it and it was 150/75 discussed with patient she has not taken her medication this morning She is planning to go home and then take her morning pills appeared she was seen by our law firm receptionist Dr. Freeman yesterday and had lab work done. We will check on that otherwise will order a basic metabolic panel and albumin creatinine ratio. continue Coreg continue amlodipine EKG completed today, reviewed by me shows normal sinus rhythm without any acute ST changes heart beat 100 per minute, no bundle-branch block, FIS336, evidence of multiple premature ventricular complexes Hyperlipidemia, check a lipid profile she is on statins which will be continued. chronic kidney disease stage III currently stable followed by nephrology Dr. Freeman Anxiety and depression PHQ 9 is 0 she denies any anxiety depression patient is not a smoker and she does not drink She feels safe at home no recent fall Advanced health planning her healthcare proxy is her daughter Ro Rm patient is a full code BMI is on the higher side, dietary education given preventive CARE she does not want any vaccinations pneumonia or flu mammogram referral given Bone density testing referral given Eye exam due 2024 Dental exam every 6 months 09/01/2024 Encounter for general adult medical examination without abnormal findings (ICD-10 - Z00.00) 78-year-old lady with history of hyperlipidemia chronic kidney disease stage III, hypertension is here today for annual wellness visit. Plan as following Hypertension, blood pressure systolic is slightly elevated 140/78 , I repeated it and it was 150/75 discussed with patient she has not taken her medication this morning She is planning to go home and then take her morning pills appeared she was seen by our law firm receptionist Dr. Freeman yesterday and had lab work done. We will check on that otherwise will order a basic metabolic panel and albumin creatinine ratio. continue Coreg continue amlodipine EKG completed today, reviewed by me shows normal sinus rhythm without any acute ST changes heart beat 100 per minute, no bundle-branch block, [id number], evidence of multiple premature ventricular complexes Hyperlipidemia, check a lipid profile she is on statins which will be continued. chronic kidney disease stage III currently stable followed by nephrology Dr. Freeman Anxiety and depression PHQ 9 is 0 she denies any anxiety depression patient is not a smoker and she does not drink She feels safe at home no recent fall Advanced health planning her healthcare proxy is her daughter Ro Rm patient is a full code BMI is on the higher side, dietary education given preventive CARE she does not want any vaccinations pneumonia or flu mammogram referral given Bone density testing referral given Eye exam due 2024 Dental exam every 6 months 09/01/2024 Age-related osteoporosis without current pathological fracture (ICD-10 - M81.0) 78-year-old lady with history of hyperlipidemia chronic kidney disease stage III, hypertension is here today for annual wellness visit. Plan as following Hypertension, blood pressure systolic is slightly elevated 140/78 , I repeated it and it was 150/75 discussed with patient she has not taken her medication this morning She is planning to go home and then take her morning pills appeared she was seen by our law firm receptionist Dr. Freeman yesterday and had lab work done. We will check on that otherwise will order a basic metabolic panel and albumin creatinine ratio. continue Coreg continue amlodipine EKG completed today, reviewed by me shows normal sinus rhythm without any acute ST changes heart beat 100 per minute, no bundle-branch block, [id number], evidence of multiple premature ventricular complexes Hyperlipidemia, check a lipid profile she is on statins which will be continued. chronic kidney disease stage III currently stable followed by nephrology Dr. Freeman Anxiety and depression PHQ 9 is 0 she denies any anxiety depression patient is not a smoker and she does not drink She feels safe at home no recent fall Advanced health planning her healthcare proxy is her daughter Ro Rm patient is a full code BMI is on the higher side, dietary education given preventive CARE she does not want any vaccinations pneumonia or flu mammogram referral given Bone density testing referral given Eye exam due 2024 Dental exam every 6 months 09/01/2024 Encounter for screening mammogram for malignant neoplasm of breast (ICD-10 - Z12.31) 78-year-old lady with history of hyperlipidemia chronic kidney disease stage III, hypertension is here today for annual wellness visit. Plan as following Hypertension, blood pressure systolic is slightly elevated 140/78 , I repeated it and it was 150/75 discussed with patient she has not taken her medication this morning She is planning to go home and then take her morning pills appeared she was seen by our law firm receptionist Dr. Freeman yesterday and had lab work done. We will check on that otherwise will order a basic metabolic panel and albumin creatinine ratio. continue Coreg continue amlodipine EKG completed today, reviewed by me shows normal sinus rhythm without any acute ST changes heart beat 100 per minute, no bundle-branch block, [id number], evidence of multiple premature ventricular complexes Hyperlipidemia, check a lipid profile she is on statins which will be continued. chronic kidney disease stage III currently stable followed by nephrology Dr. Freeman Anxiety and depression PHQ 9 is 0 she denies any anxiety depression patient is not a smoker and she does not drink She feels safe at home no recent fall Advanced health planning her healthcare proxy is her daughter Ro Rm patient is a full code BMI is on the higher side, dietary education given preventive CARE she does not want any vaccinations pneumonia or flu mammogram referral given Bone density testing referral given Eye exam due 2024 Dental exam every 6 months Plan Of Treatment Pending Test Test Name Order Date X ray : Shoulder, right 12/20/2018 Echocardiogram 01/12/2025 Electrocardiogram (EKG) 08/02/2018 Vitamin D, 25-Hydroxy 08/23/2018 MAMMOGRAM, SCREENING 09/06/2024 Bone Density 09/01/2024 MRI : Brain without Contrast 02/12/2025 Mammo: Diagnostic Mammogram Bilateral Xray: Hip Vpayl-Jdadlxsc-Raf 2 Vws 10/25 Xray: Limited Knee Right 1 Or 2 Vws 10/04 Next Appt Details Provider Name:RAY ROBERTSON , 04/05/2025 11:15:00 AM, [address] [place] [address], [phone], Insurance Providers Payer Name Payer Address Payer Phone Subscriber Number Group Number Insured Name Patient Relationship to Insured Coverage Start Date Coverage End Date [employer] [address] [address] [place] [address] [id number] Gerber Liana Self - patient is the insured Medical [...]
--- OUTSIDE RECORDS SUMMARY | 2025-03-06 10:14 | XMS_ITS | Encounter Summary ---
Author Organization [facility] Address [address] [place] [address] Care Team Providers Care Business Applications Specialist Name Role Phone Warner Boyer MD Primary Care Provider Mary Alice Gongora RN Unavailable [phone] Emery Mcintosh Unavailable Unavailable Nguyễn Frederick MD Primary Care Provider [phone] Jessee Garcia MD Primary Care Provider [phone] Nguyễn Frederick MD Primary Care Provider [phone] Encounter Details Date Type Department Care Team (Late st Contact Info) Description 01/13/2016 Scanned Document [address] [id number] Provider, Generic Social History Tobacco Use Types [...] Narrative 01/13/2016 Ordered by an unspecified provider. us Generic Provider HX AMB PROCEDURES Edited Result - Final documented in this encounter Visit Diagnoses Not on filedocumented in this encounter Care Teams Business Applications Specialist Relationship Specialty Start Date End Date Warner Boyer MD PCP - General Internal Medicine 01/23/15 03/21/19 Nguyễn Frederick MD [address] [place] [address] PCP - General Internal Medicine 03/22/19 03/22/19 Jessee Garcia MD [address] [place] [address] PCP - General Family Medicine 10/24/20 01/28/21 Nguyễn Frederick MD [address] [place] [address] PCP - General Internal Medicine 01/29/21 Mary Alice Roche, [place]O [address] [address] [facility] Community Coremaker Machine 02/23/17 05/18/21 Emery Mcintosh [address] [place] [address] Ophthalmology 02/09/19 documented as of this encounter
--- OUTSIDE RECORDS SUMMARY | 2025-03-06 10:14 | XMS_ITS | Encounter Summary ---
Author Organization [facility] Address [address] [place] [address] Care Team Providers Care Grazing Examiner Name Role Phone Warner Boyer MD Primary Care Provider Mary Alice Gongora RN Unavailable Emery Mcintosh Unavailable Unavailable Nguyễn Frederick MD Primary Care Provider [phone] Jessee Garcia MD Primary Care Provider [phone] Nguyễn Frederick MD Primary Care Provider [phone] Encounter Details Date Type Department Care Team (Late st Contact Info) Description 01/06/2018 Scanned Document [address] [phone] Provider, Generic Social History Tobacco [...] on filedocumented in this encounter Care Teams Grazing Examiner Relationship Specialty Start Date End Date Warner Boyer MD PCP - General Internal Medicine 01/23/15 03/21/19 Nguyễn Frederick MD [address] [place] [address] PCP - General Internal Medicine 03/22/19 03/22/19 Jessee Garcia MD [address] [place] [address] PCP - General Family Medicine 10/24/20 01/28/21 Nguyễn Frederick MD [address] [place] [address] PCP - General Internal Medicine 01/29/21 Mary Alice Roche, [place] [address] [address] [facility] Community Brewery Representative 02/23/17 05/18/21 Emery Mcintosh [address] [place] [address] Ophthalmology 02/09/19 documented as of this encounter
--- OUTSIDE RECORDS SUMMARY | 2025-03-06 10:14 | XMS_ITS | Clinical Summary ---
Author Organization [facility] Address [address] [id number] Care Team Providers Care Cost Accounting Clerk Name Role Phone Nguyễn Frederick MD Primary Care Provider [phone] Allergies No known active allergies Medications Medication Sig Dispensed Refills Start Date End Date Status b complex vitamins capsule Take 1 capsule by mouth. 0 Active Cholecalciferol (DIALYVITE VITAMIN D3 MAX) 19116 units TABS Take by mouth. 0 Active [...] 0 03/04/2018 Active ergocalciferol (VITAMIN D2) capsule 67859 units 0 01/30/2015 Active ferrous sulfate 325 [...] 1-dose 75+ series) 2021 Influenza Vaccine (#1) 2025 07/05/2013 Hepatitis B Vaccines Aged Out No long er eligible based on patient's age to complete this topic RSV Ped < 20 months Aged Out No longe r eligible based on patient's age to complete this topic Care Teams Cost Accounting Clerk Relationship Specialty Start Date End Date Nguyễn Frederick MD [address] [place] [address] PCP - General Internal Medicine 01/02/19
--- OUTSIDE RECORDS SUMMARY | 2025-03-06 10:14 | XMS_ITS | Encounter Summary ---
Author Organization [facility] Address [address] [place] [address] Care Team Providers Care Mines Safety Engineer Name Role Phone Warner Boyer MD Primary Care Provider Mary Alice Gongora RN Unavailable Emery Mcintosh Unavailable Unavailable Nguyễn Frederick MD Primary Care Provider [phone] Jessee Garcia MD Primary Care Provider Nguyễn Frederick MD Primary Care Provider [phone] Encounter Details Date Type Department Care Team (Late st Contact Info) Description 05/12/2018 Scanned Document [address] [address] Provider, Generic Social History Tobacco [...] on filedocumented in this encounter Care Teams Mines Safety Engineer Relationship Specialty Start Date End Date Warner Boyer MD PCP - General Internal Medicine 01/23/15 03/21/19 Nguyễn Frederick MD [address] [place] [address] PCP - General Internal Medicine 03/22/19 03/22/19 Jessee Garcia MD [address] [place] [address] PCP - General Family Medicine 10/24/20 01/28/21 Nguyễn Frederick MD [address] [place] [address] PCP - General Internal Medicine 01/29/21 Mary Alice Roche, [place] [address] [address] [facility] Community Network Operations Center Technician 02/23/17 05/18/21 Emery Mcintosh [address] [place] [address] Ophthalmology 02/09/19 documented as of this encounter
== END 2025-03-06 10:04 | disposition home or self-care (01) ==
LOC: HO.HUSH 09:20
PROVIDERS: PCP Hospitalist; Visit Provider Urology
DX: R31.0 Gross hematuria (principal); N20.0 Calculus of kidney; Z13.9 Encounter for screening, unspecified
CPT/HCPCS: 99203

== ENCOUNTER → 2025-03-06 09:20 | Outpatient (BNVA) | payer MEDICARE, SELFPAY | PROVIDERS: PCP Hospitalist; Visit Provider Urology | DX: R31.0 Gross hematuria (principal); N20.0 Calculus of kidney | CPT/HCPCS: 81003; 99202 ==

== ENCOUNTER 2025-04-13 13:56 | Outpatient (REF) | payer MEDICARE, SELFPAY ==
[2025-04-13 18:25] LABS: MANUAL DIFF FLAG NO
[2025-04-13 18:32] LABS: Hematocrit 34.3 % (37.0-47.0); Hemoglobin 10.3 g/dl (12.0-16.0); Imm Gran Abs Auto 0.03 X10*3/uL (0.00-0.03); Imm Gran Pct Auto 0.3 % (0.0-0.4); Lymphocytes Absolute Auto 3.7 X10*3/uL (1.2-4.9); Mean Corpuscular HGB Conc 30.0 g/dl (31.0-35.0); Mean Corpuscular Hemoglobin 23.1 pg (27.0-33.0); Mean Corpuscular Volume 76.9 fL (80.0-98.0); NRBC Abs Auto 0.000 X10*3/uL (0.0-0.012); NRBC Pct Auto 0.0 /100WBC (0.0-0.2); Platelet Count 307 X10*3/uL (160-400); Red Blood Count 4.46 X10*6/uL (4.20-5.50); White Blood Count 9.9 X10*3/uL (4.8-10.8)
[2025-04-13 18:37] LABS: Anion Gap 13 (12-20); Blood Urea Nitrogen 32 mg/dL (9-16); Carbon Dioxide 21 mmol/L (22-29); Chloride 108 mmol/L (96-108); Estimated Glomerular Filt Rate 26; Potassium 4.8 mmol/L (3.3-5.1); Sodium 137 mmol/L (135-145)
== END 2025-04-13 13:57 | disposition home or self-care (01) ==
LOC: HO.HKASLDS 13:56
PROVIDERS: PCP Hospitalist; Visit Provider Internal Medicine Nephrology
DX: I12.9 Hypertensive chronic kidney disease with stage 1 through stage 4 chronic kidney disease, or unspecified chronic kidney disease (principal); N25.81 Secondary hyperparathyroidism of renal origin; N18.32 Chronic kidney disease, stage 3b; D63.1 Anemia in chronic kidney disease
CPT/HCPCS: 36415; 80051; 82565; 84520; 85025

== ENCOUNTER 2025-04-17 13:24 | Outpatient (AMB) | payer MEDICARE, SELFPAY ==
--- NOTE | 2025-04-17 13:37 | HO.NEPHOV ---
Vital Signs 04/17/25 13:38 Height 5 ft 5 in Weight 287 lb BMI 47.8 BP 154/60 H Blood Pressure Location Lt brachial Position Sitting Pulse 94 Pulse Source Pulse Oximeter Pulse Oximetry (%) 97 Oxygen Delivery Method Room Air Intake Visit Reasons: 3mon follow-up w/labs Public Aid Eligibility Assistant Required: No Accompanied by: Daughter Allergies No Known Allergies Allergy (Verified 04/17/25 13:38) HPI Comments Details: Liana was seen in follow up of her CKD, hypertension, anemia of Chronic kidney disease as well as secondary hyperparathyroidism. She has H/O high BMI but her weight has been stable. She claims to be compliant with her medications. She is not a diabetic. Her BP has been at goal. She denies any uremic symptoms, edema or orthostatic symptoms. She has no CP, SOB, PND, orthopnea, pedal edema. She does not take any excessive NSAID's. She has been having some questionable hematuria and had undergone CT scan. She is not sure whether its vaginal bleeding. Her CT showed a 2 mm nonobstructing calculus in the left kidney. No additional renal calculi. She had indeterminate 1.4 cm oval lesion in segment 8 of the liver which needs MRI or multiphasic CT for further characterization. Also she had left ovarian 3.4 x 2.4 cm simple appearing cyst as well as cardiomegaly. She has been having constipation and weight gain. Her daughter accompanied her during this office visit. [facility] Medical History Hypertension Anemia in chronic kidney disease Chronic kidney disease, stage 3b Surgical History History of hysterectomy Family History Mother Heart disease Social History Alcohol intake: never Patient Tobacco Use Status: Never used Tobacco Review of Systems Const All systems reviewed & are unremarkable except as noted in HPI and below Physical Exam Vital Signs: Last Vital Signs Pulse 94 04/17/25 13:38 BP 154/60 H 04/17/25 13:38 Pulse Ox 97 04/17/25 13:38 Oxygen Delivery Method Room Air 04/17/25 13:38 BMI result Body Mass Index 47.8 Const General: comfortable and no acute distress Orientation/consciousness: patient oriented x3 HEENT Head: Yes normocephalic Mouth: Normal oral and palatal mucosa present Eyes EOM: EOMs intact bilaterally Neck Neck: Yes supple Resp Auscultation: clear to auscultation bilaterally Cardio Jugular venous distension: no JVD Rate: regular rate GI Palpation (GI): Soft to palpation Auscultation: normal bowel sounds General: Yes no CVA tenderness Back/Spine/Pelvis Back: no CVA tenderness Skin General skin exam: no rashes or lesions noted Neuro General: patient oriented x3 and moves all extremities Extrem General: Yes no pedal edema Results Reviewed Nephrology Results: Hgb, (12.0-16.0) 10.3 g/dl L 04/13/25 WBC, (4.8-10.8) 9.9 X10*3/uL 04/13/25 Plt Count, (160-400) 307 X10*3/uL 04/13/25 Sodium, (135-145) 137 mmol/L 04/13/25 Potassium, (3.3-5.1) 4.8 mmol/L 04/13/25 Chloride, (96-108) 108 mmol/L 04/13/25 Carbon Dioxide, (22-29) 21 mmol/L L 04/13/25 BUN, (9-16) 32 mg/dL H 04/13/25 Creatinine, (0.5-1.4) 1.88 mg/dL H 04/13/25 Calcium, (8.4-10.2) 9.5 mg/dL 08/31/24 Phosphorus, (2.7-4.5) 3.3 mg/dL 08/31/24 PTH Intact, (8.7-77.1) 137.9 pg/mL H 08/31/24 Assessment & Plan Assessment & Plan (1) Hypertension: Code(s): I10 - Essential (primary) hypertension Category: Medical Qualifiers: Hypertension type: primary hypertension Qualified Code(s): I10 - Essential (primary) hypertension (2) Secondary hyperparathyroidism (of renal origin): Code(s): N25.81 - Secondary hyperparathyroidism of renal origin Category: Medical (3) Chronic kidney disease, stage 3b: Code(s): N18.32 - Chronic kidney disease, stage 3b Category: Medical (4) Renal calculus: Code(s): N20.0 - Calculus of kidney Category: Medical (5) Anemia in chronic kidney disease: Code(s): N18.9 - Chronic kidney disease, unspecified; D63.1 - Anemia in chronic kidney disease Category: Medical Qualifiers: Chronic kidney disease stage: stage 3 (moderate) Chronic kidney disease stage 3 subtype: stage 3b (GFR 30-44) Qualified Code(s): N18.32 - Chronic kidney disease, stage 3b; D63.1 - Anemia in chronic kidney disease Plan She has Stage 3 CKD from long standing hypertension on a backdrop of high BMI. Her renal functions had been stable. Her BP is at goal. Her volume status is optimal. Her Hb had been stable and doesn't warrant EPO. Her serum calcium had been stable. She is on activated Vitamin D.She is on allopurinol which she is tolerating very well. I did not make any medications at this visit. I encouraged her to maintain good hydration and minimize NSAID's. She needs to have TFT's done. I answered all questions. F/U appointment given Orders: Orders Electrolytes 4 Months D63.1 - Anemia in chronic kidney disease, I10 - Essential (primary) hypertension, N18.32 - Chronic kidney disease, stage 3b, N20.0 - Calculus of kidney, N25.81 - Secondary hyperparathyroidism of renal origin Calcium 4 Months D63.1 - Anemia in chronic kidney disease, I10 - Essential (primary) hypertension, N18.32 - Chronic kidney disease, stage 3b, N20.0 - Calculus of kidney, N25.81 - Secondary hyperparathyroidism of renal origin Complete Blood Count Auto Diff 4 Months D63.1 - Anemia in chronic kidney disease, I10 - Essential (primary) hypertension, N18.32 - Chronic kidney disease, stage 3b, N20.0 - Calculus of kidney, N25.81 - Secondary hyperparathyroidism of renal origin Blood Urea Nitrogen 4 Months D63.1 - Anemia in chronic kidney disease, I10 - Essential (primary) hypertension, N18.32 - Chronic kidney disease, stage 3b, N20.0 - Calculus of kidney, N25.81 - Secondary hyperparathyroidism of renal origin Creatinine 4 Months D63.1 - Anemia in chronic kidney disease, I10 - Essential (primary) hypertension, N18.32 - Chronic kidney disease, stage 3b, N20.0 - Calculus of kidney, N25.81 - Secondary hyperparathyroidism of renal origin Vitamin D 25-OH Total 4 Months D63.1 - Anemia in chronic kidney disease, I10 - Essential (primary) hypertension, N18.32 - Chronic kidney disease, stage 3b, N20.0 - Calculus of kidney, N25.81 - Secondary hyperparathyroidism of renal origin Coding Level of Care Code Est Pt Level 4 (51266) Diagnoses Primary hypertension I10 Hypertension type: primary hypertension Secondary hyperparathyroidism (of renal origin) N25.81 Chronic kidney disease, stage 3b N18.32 Renal calculus N20.0 Anemia in stage 3b chronic kidney disease N18.32; D63.1 Chronic kidney disease stage: stage 3 (moderate) Chronic kidney disease stage 3 subtype: stage 3b (GFR 30-44)
[2025-04-17 13:38] VITALS: BP 154/60; PULSE 94; O2SAT 97; BMI 47.8
--- OUTSIDE RECORDS SUMMARY | 2025-04-17 16:14 | XMS_ITS | Encounter Summary ---
Author Organization [facility] Address [address] [place] [address] Care Team Providers Care Surfacing Machine Operator Name Role Phone Warner Boyer MD Primary Care Provider Mary Alice Gongora RN Unavailable Emery Mcintosh Unavailable Unavailable Nguyễn Frederick MD Primary Care Provider Jessee Garcia MD Primary Care Provider [phone] Nguyễn Frederick MD Primary Care Provider [phone] Encounter Details Date Type Department Care Team (Late st Contact Info) Description 01/06/2018 Scanned Document [address] [phone] Provider, Generic Social History [...] on filedocumented in this encounter Care Teams Surfacing Machine Operator Relationship Specialty Start Date End Date Warner Boyer MD PCP - General Internal Medicine 01/23/15 03/21/19 Nguyễn Frederick MD [address] [place] [address] PCP - General Internal Medicine 03/22/19 03/22/19 Jessee Garcia MD [address] [place] [address] PCP - General Family Medicine 10/24/20 01/28/21 Nguyễn Frederick MD [address] [place] [address] PCP - General Internal Medicine 01/29/21 Mary Alice Roche, [place] [address] [address] [facility] Community Punch Press Operator 02/23/17 05/18/21 Emery Mcintosh [address] [place] [address] Ophthalmology 02/09/19 documented as of this encounter
--- OUTSIDE RECORDS SUMMARY | 2025-04-17 16:14 | XMS_ITS | Encounter Summary ---
Author Organization [facility] Address [address] [place] [address] Care Team Providers Care Driver Trainee Name Role Phone Warner Boyer MD Primary Care Provider Mary Alice Gongora RN Unavailable Emery Mcintosh Unavailable Unavailable Nguyễn Frederick MD Primary Care Provider [phone] Jessee Garcia MD Primary Care Provider [phone] Nguyễn Frederick MD Primary Care Provider Encounter Details Date Type Department Care Team (Late st Contact Info) Description 06/03/2015 Scanned Document [address] [phone] Provider, Generic Social History Tobacco Use Types [...] on filedocumented in this encounter Care Teams Driver Trainee Relationship Specialty Start Date End Date Warner Boyer MD PCP - General Internal Medicine 01/23/15 03/21/19 Nguyễn Frederick MD [address] [place] [address] PCP - General Internal Medicine 03/22/19 03/22/19 Jessee Garcia MD [address] [place] [address] PCP - General Family Medicine 10/24/20 01/28/21 Nguyễn Frederick MD [address] [place] [address] PCP - General Internal Medicine 01/29/21 Mary Alice Roche, [place] [address] [address] [facility] Community Dead Mail Checker 02/23/17 05/18/21 Emery Mcintosh [address] [place] [address] Ophthalmology 02/09/19 documented as of this encounter
--- OUTSIDE RECORDS SUMMARY | 2025-04-17 16:14 | XMS_ITS | Encounter Summary ---
Author Organization [facility] Address [address] [place] [address] Care Team Providers Care Brick Off Bearer Name Role Phone Wanrer Boyer MD Primary Care Provider Mary Alice Gongora RN Unavailable [phone] Emery Mcintosh Unavailable Unavailable Nguyễn Frederick MD Primary Care Provider [phone] Jessee Garcia MD Primary Care Provider [phone] Nguyễn Frederick MD Primary Care Provider [phone] Encounter Details Date Type Department Care Team (Late st Contact Info) Description 10/05/2016 Scanned Document [address] [address] Provider, Generic Social History Tobacco [...] on filedocumented in this encounter Care Teams Brick Off Bearer Relationship Specialty Start Date End Date Warner Boyer MD PCP - General Internal Medicine 01/23/15 03/21/19 Nguyễn Frederick MD [address] [place] [address] PCP - General Internal Medicine 03/22/19 03/22/19 Jessee Garcia MD [address] [place] [address] PCP - General Family Medicine 10/24/20 01/28/21 Nguyễn Frederick MD [address] [place] [address] PCP - General Internal Medicine 01/29/21 Mary Alice Roche, [place] [address] [address] [facility] Community Health Care Liaison 02/23/17 05/18/21 Emery Mcintosh [address] [place] [address] Ophthalmology 02/09/19 documented as of this encounter
--- OUTSIDE RECORDS SUMMARY | 2025-04-17 16:14 | XMS_ITS | Encounter Summary ---
Author Organization [facility] Address [address] [place] [address] Care Team Providers Care Laboratory Machinist Name Role Phone Warner Boyer MD Primary Care Provider Mary Alice Gongora RN Unavailable Emery Mcintosh Unavailable Unavailable Nguyễn Frederick MD Primary Care Provider [phone] Jessee Garcia MD Primary Care Provider [phone] Nguyễn Frederick MD Primary Care Provider [phone] Encounter Details Date Type Department Care Team (Late st Contact Info) Description 04/27/2016 Scanned Document [address] [address] Provider, Generic Social History [...] on filedocumented in this encounter Care Teams Laboratory Machinist Relationship Specialty Start Date End Date Warner Boyer MD PCP - General Internal Medicine 01/23/15 03/21/19 Nguyễn Frederick MD [address] [place] [address] PCP - General Internal Medicine 03/22/19 03/22/19 Jessee Garcia MD [address] [place] [address] PCP - General Family Medicine 10/24/20 01/28/21 Nguyễn Frederick MD [address] [place] [address] PCP - General Internal Medicine 01/29/21 Mary Alice Roche, [place] [address] [address] [facility] Community Shop Supervisor 02/23/17 05/18/21 Emery Mcintosh [address] [place] [address] Ophthalmology 02/09/19 documented as of this encounter
--- OUTSIDE RECORDS SUMMARY | 2025-04-17 16:14 | XMS_ITS | Encounter Summary ---
Author Organization [facility] Address [address] [place] [address] Care Team Providers Care Angiography Technologist Name Role Phone Warner Boyer MD Primary Care Provider Mary Alice Gongora RN Unavailable [phone] Emery Mcintosh Unavailable Unavailable Nguyễn Frederick MD Primary Care Provider [phone] Jessee Garcia MD Primary Care Provider [phone] Nguyễn Frederick MD Primary Care Provider [phone] Reason for Visit * Reason Comments Medication Refill Encounter Details Date Type Department Care Team (Late st Contact Info) Description 10/15/[address] [place] [phone] Warner Boyer MD Insomnia Social History Tobacco [...] unspecified documented in this encounter Care Teams Angiography Technologist Relationship Specialty Start Date End Date Warner Boyer MD PCP - General Internal Medicine 01/23/15 03/21/19 Nguyễn Frederick MD [address] [place] [address] PCP - General Internal Medicine 03/22/19 03/22/19 Jessee Garcia MD [address] [place] [address] PCP - General Family Medicine 10/24/20 01/28/21 Nguyễn Frederick MD [address] [place] [address] PCP - General Internal Medicine 01/29/21 Mary Alice Roche, RN [address] [address] [facility] Community Inspector Bicycle 02/23/17 05/18/21 Emery Mcintosh [address] [place] [address] Ophthalmology 02/09/19 documented as of this encounter
--- OUTSIDE RECORDS SUMMARY | 2025-04-17 16:14 | XMS_ITS | Encounter Summary ---
Author Organization [facility] Address [address] [place] [address] Care Team Providers Care Retail Advisor Name Role Phone Warner Boyer MD Primary Care Provider Mary Alice Gongora RN Unavailable [phone] Emery Mcintosh Unavailable Unavailable Nguyễn Frederick MD Primary Care Provider [phone] Jessee Garcia MD Primary Care Provider [phone] Nguyễn Frederick MD Primary Care Provider [phone] Reason for Visit * Reason Comments Medication Refill Encounter Details Date Type Department Care Team (Late st Contact Info) Description [address] [place] [phone] Warner Boyer MD Essential hypertension Social History [...] hypertension documented in this encounter Care Teams Retail Advisor Relationship Specialty Start Date End Date Warner Boyer MD PCP - General Internal Medicine 01/23/15 03/21/19 Nguyễn Frederick MD [address] [place] [address] PCP - General Internal Medicine 03/22/19 03/22/19 Jessee Garcia MD [address] [place] [address] PCP - General Family Medicine 10/24/20 01/28/21 Nguyễn Frederick MD [address] [place] [address] PCP - General Internal Medicine 01/29/21 Mary Alice Roche, DELGADO [address] [address] [facility] Community Hand Hide Stretcher 02/23/17 05/18/21 Emery Mcintosh [address] [place] [address] Ophthalmology 02/09/19 documented as of this encounter
--- OUTSIDE RECORDS SUMMARY | 2025-04-17 16:14 | XMS_ITS | Encounter Summary ---
Author Organization [facility] Address [address] [place] [address] Care Team Providers Care Food Service Team Member Name Role Phone Warner Boyer MD Primary Care Provider Mary Alice Gongora RN Unavailable [phone] Emery Mcintosh Unavailable Unavailable Nguyễn Frederick MD Primary Care Provider Jessee Garcia MD Primary Care Provider Nguyễn Frederick MD Primary Care Provider [phone] Encounter Details Date Type Department Care Team (Late st Contact Info) Description 09/30/2015 Scanned Document [address] [phone] Provider, Generic Social History Tobacco [...] on filedocumented in this encounter Care Teams Food Service Team Member Relationship Specialty Start Date End Date Warner Boyer MD PCP - General Internal Medicine 01/23/15 03/21/19 Nguyễn Frederick MD [address] [place] [address] PCP - General Internal Medicine 03/22/19 03/22/19 Jessee Garcia MD [address] [place] [address] PCP - General Family Medicine 10/24/20 01/28/21 Nguyễn Frederick MD [address] [address] PCP - General Internal Medicine 01/29/21 Mary Alice Roche, RN [address] [address] [facility] Community Loading Unit Operator Powder Charging 02/23/17 05/18/21 Emery Mcintosh [address] [place] [address] Ophthalmology 02/09/19 documented as of this encounter
--- OUTSIDE RECORDS SUMMARY | 2025-04-17 16:14 | XMS_ITS | Patient Health Record ---
Author Organization [facility] Address [address] [facility] [address] [place] [address] Care Team Providers Care Manager Administrative Name Role Phone Nguyễn Frederick Primary Care [...] Insured Coverage Start Date Coverage End Date [facility] [address] [place] [id number] Liana Mayes Self - patient is the [...]
--- OUTSIDE RECORDS SUMMARY | 2025-04-17 16:14 | XMS_ITS | Encounter Summary ---
Author Organization Formerly [facility] Address [address] [place] [address] Care Team Providers Care Perfume Compounder Name Role Phone Warner Boyer MD Primary Care Provider Mary Alice Gongora RN Unavailable [phone] Emery Mcintosh Unavailable Unavailable Nguyễn Frederick MD Primary Care Provider [phone] Jessee Garcia MD Primary Care Provider [phone] Nguyễn Frederick MD Primary Care Provider [phone] Encounter Details Date Type Department Care Team (Late st Contact Info) Description 05/31/2017 Scanned Document [address] [address] Provider, Generic Social History Tobacco [...] on filedocumented in this encounter Care Teams Perfume Compounder Relationship Specialty Start Date End Date Warner Boyer MD PCP - General Internal Medicine 01/23/15 03/21/19 Nguyễn Frederick MD [address] [place] [address] PCP - General Internal Medicine 03/22/19 03/22/19 Jessee Garcia MD [address] [place] [address] PCP - General Family Medicine 10/24/20 01/28/21 Nguyễn Frederick MD [address] [place] [address] PCP - General Internal Medicine 01/29/21 Mary Alice Roche, DELGADO [address] [address] [facility] Community Corporate Driver 02/23/17 05/18/21 Emery Mcintosh [address] [place] [address] Ophthalmology 02/09/19 documented as of this encounter
--- OUTSIDE RECORDS SUMMARY | 2025-04-17 16:14 | XMS_ITS | Encounter Summary ---
Author Organization Formerly [facility] Address [address] [place] [address] Care Team Providers Care Library Media Specialist Name Role Phone Warner Boyer MD Primary Care Provider Mary Alice Gongora RN Unavailable Emery Mcintosh Unavailable Unavailable Nguyễn Frederick MD Primary Care Provider [phone] Jessee Garcia MD Primary Care Provider [phone] Nguyễn Frederick MD Primary Care Provider [phone] Encounter Details Date Type Department Care Team (Late st Contact Info) Description 05/12/2018 Scanned Document [address] [address] Provider, Generic Social History Tobacco [...] filedocumented in this encounter Care Teams Library Media Specialist Relationship Specialty Start Date End Date Warner Boyer MD PCP - General Internal Medicine 01/23/15 03/21/19 Nguyễn Frederick MD [address] [place] [address] PCP - General Internal Medicine 03/22/19 03/22/19 Jessee Garcia MD [address] [place] [address] PCP - General Family Medicine 10/24/20 01/28/21 Nguyễn Frederick MD [address] [place] [address] PCP - General Internal Medicine 01/29/21 Mary Alice Roche, DELGADO [address] [address] [facility] Community Winder Operator 02/23/17 05/18/21 Emery Mcintosh [address] [place] [address] Ophthalmology 02/09/19 documented as of this encounter
--- OUTSIDE RECORDS SUMMARY | 2025-04-17 16:14 | XMS_ITS | Encounter Summary ---
Author Organization [facility] Address [address] [place] [address] Care Team Providers Care Cloth Brushing And Sueding Supervisor Name Role Phone Warner Boyer MD Primary Care Provider Mary Alice Gongora RN Unavailable Emery Mcintosh Unavailable Unavailable Nguyễn Frederick MD Primary Care Provider [phone] Jessee Garcia MD Primary Care Provider [phone] Nguyễn Frederick MD Primary Care Provider [phone] Encounter Details Date Type Department Care Team (Late st Contact Info) Description 01/13/2016 Scanned Document [address] [phone] Provider, Generic Social History Tobacco Use Types [...] on filedocumented in this encounter Care Teams Cloth Brushing And Sueding Supervisor Relationship Specialty Start Date End Date Warner Boyer MD PCP - General Internal Medicine 01/23/15 03/21/19 Nguyễn Frederick MD [address] [place] [address] PCP - General Internal Medicine 03/22/19 03/22/19 Jessee Garcia MD [address] [place] [address] PCP - General Family Medicine 10/24/20 01/28/21 Nguyễn Frederick MD [address] [place] [address] PCP - General Internal Medicine 01/29/21 Mary Alice Roche, DELGADO [address] [address] [facility] Community Continuity Coordinator 02/23/17 05/18/21 Emery Mcintosh [address] [place] [address] Ophthalmology 02/09/19 documented as of this encounter
--- OUTSIDE RECORDS SUMMARY | 2025-04-17 16:14 | XMS_ITS | Encounter Summary ---
Author Organization [facility] Address [address] [place] [address] Care Team Providers Care Pearl Diver Name Role Phone Warner Boyer MD Primary Care Provider Mary Alice Gongora RN Unavailable [phone] Emery Mcintosh Unavailable Unavailable Nguyễn Frederick MD Primary Care Provider [phone] Jessee Garcia MD Primary Care Provider [phone] Nguyễn Frederick MD Primary Care Provider [phone] Encounter Details Date Type Department Care Team (Late st Contact Info) Description 09/28/2017 Scanned Document [address] [address] Provider, Generic Social History Tobacco [...] on filedocumented in this encounter Care Teams Pearl Diver Relationship Specialty Start Date End Date Warner Boyer MD PCP - General Internal Medicine 01/23/15 03/21/19 Nguyễn Frederick MD [address] [place] [address] PCP - General Internal Medicine 03/22/19 03/22/19 Jessee Garcia MD [address] [place] [address] PCP - General Family Medicine 10/24/20 01/28/21 Nguyễn Frederick MD [address] [place] [address] PCP - General Internal Medicine 01/29/21 Mary Alice Roche, DELGADO [address] [address] [facility] Community Putter In 02/23/17 05/18/21 Emery Mcintosh [address] [place] [address] Ophthalmology 02/09/19 documented as of this encounter
--- OUTSIDE RECORDS SUMMARY | 2025-04-17 16:14 | XMS_ITS | Clinical Summary ---
Author Organization Formerly [facility] Address [address] [place] [address] Care Team Providers Care Staffing Recruiter Name Role Phone Emery Mcintosh Unavailable Unavailable Nugyễn Frederick MD Primary Care Provider [phone] Allergies No known active allergies Medications ergocalciferol (VITAMIN D2,DRISDOL) 11919 units Cap 0 5 Active traMADol (ULTRAM) [...] 7 Active Cholecalciferol (DIALYVITE VITAMIN D3 MAX) 63812 units Tab Take by mouth. Active traMADol [...] tablet 8 Active Sodium Sulfate-Mag Sulfate-KCl (Sutab) 5900-540-585 MG TabIndications:Pe rsonal history of colonic polyps Take 1 box by mouth 2 (two) times a day. 24 tablet 1 Active Active Problems Problem Noted Date Diagnosed Date Personal history of colonic polyps 12/24/2020 Overview (12/24/2020): Added automatically from request for surgery [id number] Lipid disorder 05/26/2016 Encounter for health-related screening [...] - 1-dose 75+ series) 2021 Influenza Vaccine 02/02/2025 07/05/2013, , COVID-19 Vaccine ( season) 2025 01/06/2021, 12/03/2020 Advance Care Planning Completed 05/26/2016 Mammogram Discontinued [...] standard practice guidelines of the ACR [place]. A reference guide is provided below. BREAST [...] Assessment Tool designed at the National Cancer [place] (NCI), are available to help health professionals [...] 5.9 4.0 - 6.0 % Lot Number [id number] Chairman & Chief Executive Officer [place] Blood specimen (specimen) 12/08/2017 8:56 [...] LDL-C. Dhruv SS et al. BENJAMIN. 2013;310(19): 5021-2822 (http://education.BlackJet.bSafe/faq/SMD354) Cholesterol/HDL Ratio 3.4 <5.0 (calc) [facility] [...] Performing Organization Information: Site ID: [id number] Name: [facility] Address: [address] [place] [address], [place] [address] Director: Niurka Whitfield MD Warner Boyer MD LAB BLOOD ORDERABLES Final Re sult [facility] [address], [place] [address] * (ABNORMAL) Chem 10 (12/06/2017 11:52 AM EDT) Albumin 4.0 3.6 - 5.1 g/dL [facility] Blood Urea Nitrogen (BUN) 30(H) 7 - 25 mg/dL [facility] Creatinine 2.16(H) 0.60 - 0.93 mg/dL [facility] Comment: For patients >49 years of age, the reference limit for Creatinine is approximately 13% higher for people identified as -[place]. eGFR Non- 22(L) > OR = 60 [...] Performing Organization Information: Site ID: [id number] Name: [facility] Address: [address] [place] [address], [place] [address] Director: Niurka Whitfield MD us Warner Boyer MD LAB BLOOD ORDERABLES Final Re sult [facility] [address], [place] [address] * DEXA Bone density-Hip/pelvis/spine w/fx eval (Axial) [...] 1 AM EST us Conversion Provider MD [facility] Final Res ult [facility] from Last 3 Months or Most Recently Relevant to Health Maintenance Insurance [facility] MEDICARE Advance Directives * Full Code (Latest Code Status on File) Date Activated Date Inactivated Comments 01/29/2021 7:55 AM * Full Code Date Activated Date Inactivated Comments 12/23/2015 10:44 AM 12/23/2015 2:55 PM Care Teams Staffing Recruiter Relationship Specialty Start Date End Date Nguễyn Frederick MD [address] [place] [address] PCP - General Internal Medicine 01/29/21 Emery Mcintosh [facility] [address] [place], [place] [id number] Ophthalmology 02/09/19
--- OUTSIDE RECORDS SUMMARY | 2025-04-17 16:14 | XMS_ITS | Clinical Summary ---
Author Organization [facility] Address [address] [id number] Care Team Providers Care Tube And Manifold Builder Name Role Phone Nguyễn Frederick MD Primary Care Provider [phone] Allergies No known active allergies Medications Medication Sig Dispensed Refills Start Date End Date Status b complex vitamins capsule Take 1 capsule by mouth. 0 Active Cholecalciferol (DIALYVITE VITAMIN D3 MAX) 66842 units TABS Take by mouth. 0 Active [...] 0 03/04/2018 Active ergocalciferol (VITAMIN D2) capsule 87544 units 0 01/30/2015 Active ferrous sulfate 325 [...] age to complete this topic Care Teams Tube And Manifold Builder Relationship Specialty Start Date End Date Nguyễn Frederick MD [address] [place] [address] PCP - General Internal Medicine 01/02/19
--- OUTSIDE RECORDS SUMMARY | 2025-04-17 16:14 | XMS_ITS | Encounter Summary ---
Author Organization [facility] Address [address] [place] [address] Care Team Providers Care Laborer Filter Plant Name Role Phone Warner Boyer MD Primary Care Provider Mary Alice Gongora RN Unavailable [phone] Emery Mcintosh Unavailable Unavailable Nguyễn Frederick MD Primary Care Provider Jessee Garcia MD Primary Care Provider [phone] Nguyễn Frederick MD Primary Care Provider [phone] Reason for Visit * Reason Comments Medication Refill Encounter Details Date Type Department Care Team (Late st Contact Info) Description 06/06/[address] [place] [phone] Warner Boyer MD Essential hypertension Social History [...] hypertension documented in this encounter Care Teams Laborer Filter Plant Relationship Specialty Start Date End Date Warner Boyer MD PCP - General Internal Medicine 01/23/15 03/21/19 Nguyễn Frederick MD [address] [place] [address] PCP - General Internal Medicine 03/22/19 03/22/19 Jessee Garcia MD [address] [place] [address] PCP - General Family Medicine 10/24/20 01/28/21 Nguyễn Frederick MD [address] [place] [address] PCP - General Internal Medicine 01/29/21 Mary Alice Roche, DELGADO [address] [address] [facility] Community Tobacco Hanger 02/23/17 05/18/21 Emery Mcintosh [address] [place] [address] Ophthalmology 02/09/19 documented as of this encounter
--- OUTSIDE RECORDS SUMMARY | 2025-04-17 16:14 | XMS_ITS | Clinical Summary ---
Author Organization [facility] Address [address] [place] [address] Phone Care Team Providers Care Tank Truck Mechanic Name Role Phone Warner Boyer MD Primary [...] file Insurance MEDIC[facility] PART A [facility] [place] [address] [address] [place] [address] OUT [facility] PPO MEDICARE PART A & B [facility] OUT OF STATE PPO MEDICARE PART A & B [facility] A & B [facility] OUT [facility] PPO MEDICARE PART A & B [facility] P[facility] MEDICARE PART A & [place] [address] [place] [address] PPO MEDICARE PART A & B PPO MEDICARE PART A & B [facility] PPO Care Teams Tank Truck Mechanic Relationship Specialty Start Date End Date Warner Boyer MD PCP - General Internal Medicine 05/26/16 Additional Source Comments The information contained in this document represents components of the legal health record. It is not the complete legal health record.[facility]
--- OUTSIDE RECORDS SUMMARY | 2025-04-17 16:14 | XMS_ITS | Encounter Summary ---
Author Organization [facility] Address [address] [place] [address] Care Team Providers Care Lithopone Mill Worker Name Role Phone Mary Alice Roche RN Unavailable [phone] Emery Mcintosh Unavailable Unavailable Jessee Garcia MD Primary Care Provider [phone] Nguyễn Frederick MD Primary Care Provider [phone] Encounter Details Date Type Department Care Team (Late st Contact Info) Description 01/28/2021 Scanned Document [facility] General Surgery [address] [phone] Ced Bustos MD [address] [place] [address] Social History Tobacco Use Types Packs/Day [...] on filedocumented in this encounter Care Teams Lithopone Mill Worker Relationship Specialty Start Date End Date Jessee Garcia MD [address] [place] [address] PCP - General Family Medicine 10/24/20 01/28/21 Nguyễn Frederick MD [address] [place] [address] PCP - General Internal Medicine 01/29/21 Mary Alice Roche, DELGADO [address] [address] [facility] Community Business Objects Developer 02/23/17 05/18/21 Emery Mcintosh [address] [place] [address] Ophthalmology 02/09/19 documented as of this encounter
--- OUTSIDE RECORDS SUMMARY | 2025-04-17 16:15 | XMS_ITS | Patient Health Record ---
Author Organization [employer] Address [address] [place] [address] Care Team Providers Care Ballistics Expert Name Role Phone RAY ROBERTSON Primary Care Provider AlaFuad reid Unavailable [phone] MazbettyEli marcos Unavailable [phone] Allergies No Known Allergies Results Component Value Reference Range Notes Homocyst(e)ine-[id number] Reviewed date:02/06/2025 08:41:01 AM Interpretation: Performing Lab:[facility] [place], [address] [facility], [place], Phone - [phone], [facility]/Report: Test(s) 373198-Rmfsqbmfvtrgm Acid, Serum was developed and its performance characteristics determined by [facility]. It has not been cleared or approved by the Food and Drug Administration. Homocyst(e)ine 26.1 0.0-19.2 umol/L Methylmalonic Acid, Serum-70 6961 Reviewed date:02/06/2025 08:40:55 AM Interpretation: Performing Lab:[facility] [place], [address] [facility], [place], Phone - [phone], Director - Charly Notes/Report: Test(s) 584864-Motihnoorzzph Acid, Serum was developed and its performance characteristics determined by [facility]. It has not been cleared or approved by the Food and Drug Administration. Methylmalonic Acid, Serum 357 0-378 nmol/L TSH+Free T4-012361 Reviewed date:02/06/2025 08:40:47 AM Interpretation: Performing Lab:[facility] [place], [address] [place] [address], Phone - [phone], Director - [facility] Notes/Report: Test(s) 573024-Dtkfjsnohajcx Acid, Serum was developed and its performance characteristics determined by [facility]. It has not been cleared or approved by the Food and Drug Administration. TSH 2.370 0.450-4.500 uIU/mL T4,Free(Direct) 1.25 0.82-1.77 ng/dL Vitamin B12 and Folate-62260 0 Reviewed date:02/06/2025 08:40:42 AM Interpretation: Performing Lab:[facility] [place], [address] [place] [address], Phone - [phone], Director - [facility] Notes/Report: Test(s) 350446-Zkqawzdotlplv Acid, Serum was developed and its performance characteristics determined by [facility]. It has not been cleared or approved by the Food and Drug Administration. Vitamin B12 215 723-2697 pg/mL Folate (Folic Acid), Serum 7.3 >3.0 ng/mL A serum folate concentration of less than 3.1 ng/mL is considered to represent clinical deficiency. Comp. Metabolic Panel (13)-3 52386 Reviewed date:12/04/2024 03:23:09 PM Interpretation: Performing Lab:[facility] [place], [address] [place] [address], Phone - [phone], Director - [facility] Notes/Report: Glucose 92 70-99 mg/dL BUN 22 [...] 44-121 IU/L AST (SGOT) 14 0-40 IU/L Lipid Panel With LDL/HDL Rat [id number] Reviewed date:12/04/2024 03:21:50 PM Interpretation: Performing Lab:[facility], [address] [facility], [place], Phone - [phone], Director - [place] Notes/Report: Cholesterol, Total 137 100-199 mg/dL Triglycerides 123 0-149 mg/dL HDL Cholesterol 40 >39 mg/dL VLDL Cholesterol Augusto 22 5-40 mg/dL LDL Chol Calc (NIH) 75 0-99 mg/dL LDL/HDL Ratio 1.9 0.0-3.2 ratio LDL/HDL Ratio Men Women 1/2 Avg.Risk 1.0 1.5 Avg.Risk 3.6 3.2 2X Avg.Risk 6.2 5.0 3X Avg.Risk 8.0 6.1 Albumin/Creatinine Ratio,Uri [id number] Reviewed date:12/04/2024 03:21:59 PM Interpretation: Performing Lab:[facility] [place], [address] [facility], [place], Phone - [phone], Director - [place] Notes/Report: Creatinine, Urine 130.4 Not Estab. mg/dL Albumin, Urine 3.8 Not Estab. ug/mL Alb/Creat Ratio 3 0-29 mg/g creat Normal: 0 - 29 Moderately increased: 30 - 300 Severely increased: >300 Reason For Referral Reason Please evaluate and treat Please evaluate and treat Diagnosis 1 Pain in right hip (M 25.551) Referral Organization [facility] Referring Provider First Name Tommy Referring Provider Last Name Gisselle Referred Provider Specialty Physical The rapist General Notes Please call the shine ent to schedule the appointment, [facility] contact them at [phone] Charmain 10/27/2024 04:27:51 PM > Referral Priority Routine Reason Please evaluate and treat Please evaluate and treat Diagnosis 1 Acute pain of right knee (M25.561) Referral Organization [facility] Referring Provider First Name Eli Referring Provider Last Name Willie Referred Provider Specialty Orthopedic S urgery General Notes Please call the shine ent to schedule the appointment, [facility] contact them at [phone] Charmain 10/27/2024 04:11:00 PM > Referral Priority Routine Reason MMSE score of 21, co mplaints of memory disturbance Please evaluate and treat Diagnosis 1 Complaints of memory disturbance (R41.3) Referral Organization [facility] Referring Provider First Name Eli Referring Provider Last Name Willie Referred Provider Specialty Neuropsychia try General Notes Please call the shine ent to schedule the appointment, Encounter created and SMS sent to the pt. Nathalia Romeoin 12/25/2024 04:19:04 PM > Referral Priority Routine Reason Evaluation and Manag ement Diagnosis 1 Other ovarian cyst, left side (N83.292) Referral Organization [facility] Referring Provider First Name RAY Referring Provider Last Name TINA Referring Provider Speciality Internal M edicine Referred Provider Specialty Pony Worker General Notes Referral sent to [facility] ([facility] [facility], [address], [place] [address] ) - Office will call patient for scheduling.Faye Latraya 01/12/2025 08:18:15 AM > Referral Priority Routine Reason Evaluation and Manag ement Diagnosis 1 Cardiomegaly (I51.7) Referral Organization [facility] Referring Provider First Name RAY Referring Provider Last Name TINA Referring Provider Speciality Internal M edicine Referred Provider Specialty Cardiology General Notes Referral sent to [facility] ([address], [place] [address] - Office will call patient for scheduling.Faye Latraya 01/12/2025 08:15:57 AM > Referral Priority Routine Medications Medication SIG (Take, Route, Frequency, Duration) Notes Start Date End Date Status Carvedilol 25 MG 1 tablet with food O rally twice a day; Duration: 90 days Active Diclofenac Sodium 3 % 1 application Exte rnally Twice a day; Duration: 30 days 08/19/2022 Active Atorvastatin Calcium 10 MG 1 tablet Oral ly Once a day; Duration: 90 days Active amLODIPine Besylate 10 MG 1 tablet Orall y Once a day; Duration: 30 days 03/23/2023 Active Calcitriol 0.25 MCG 1 capsule Orally harsh ry other day; Duration: 30 days Active Ferrous Sulfate 325 (65 Fe) MG TAKE ONE TABLET BY MOUTH TWICE A DAY; Duration: 45 Active Acetaminophen 8 Hour 650 MG 2 tablets as needed Orally every 8 hrs; Duration: 30 days 10/25/2024 Active Allopurinol 300 MG 1 tablet Orally Once a day; Duration: 90 days Active Zoloft 25 MG 1 tablet Orally Once a day; Duration: 30 days 02/12/2025 Active Memantine HCl 10 MG 1 tablet Orally Once a day; Duration: 30 days 02/12/2025 Active Immunizations Vaccine Route Administration Date Status [...] Status Risk Notes Problem Vitamin D deficiency (23080849) Vitamin D deficiency, unspecified (E55.9) Active confirmed Problem Morbid obesity (disorder) (751318095) Morbid (severe) obesity due to excess calories (E66.01) Active confirmed Problem Mixed hyperlipidemia (603301429) Mixed hyperlipidemia (E78.2) Active confirmed Problem Generalized anxiety disorder (07256905) Generalized anxiety disorder (F41.1) Active confirmed Problem Essential hypertension (56977812) Essential (primary) hypertension (I10) Active confirmed Problem Chronic kidney disease due to hypertension (211256551256316) Hypertensive chronic kidney disease with stage 1 through stage 4 chronic kidney disease, or unspecified chronic kidney disease (I12.9) Active confirmed Problem Cardiomegaly (1158891) Cardiomegaly (I51.7) Active confirmed Problem Disorder of skin AND/OR subcutaneous tissue (91551331) Disorder of the skin and subcutaneous tissue, unspecified (L98.9) Active confirmed Problem Chronic gouty arthritis (64035921) Chronic gout, unspecified, without tophus (tophi) (M1A.9XX0) Active confirmed Problem Gout (21610094) Gout, unspecifie d (M10.9) Active confirmed Problem Osteoarthritis (571452860) Polyosteoarthriti s, unspecified (M15.9) Active confirmed Problem Pain of right shoulder region (finding) (5065088535) Pain in right shoulder (M25.511) Active confirmed Problem Left side sciatica (987812960762156) Sciatica, left side (M54.32) Active confirmed Problem Age-related osteoporosis (944863098) Age-related osteoporosis without current pathological fracture (M81.0) Active confirmed Problem Chronic kidney disease stage 4 (470646530) Chronic kidney disease, stage 4 (severe) (N18.4) Active confirmed Problem Chronic kidney disease (270439878) Chronic kidney disease, unspecified (N18.9) Active confirmed Problem Heart murmur (finding) (89278735) Cardiac murmur, unspecified (R01.1) Active confirmed Problem Amnesia (73843365) Complaints of memory disturbance (R41.3) Active confirmed Vital Signs Heart Rate 94 /min 04/05/2025 Temperature 96.3 degrees Fahrenheit 04/05/2025 Oximetry 90 % 04/05/2025 Blood pressure diastolic 60 mm Hg 04/05/2025 Height 64 in 04/05/2025 Blood pressure systolic 120 mm Hg 04/05/2025 Weight 288.2 lbs 04/05/2025 BMI 49.46 kg/m2 04/05/2025 Encounters Encounter Location Date Provider Diagnosis [address] [address] 09/01/2024 Arotorito Hravey Essential (primary) hypertension I10 ; Chronic kidney disease, stage 3a N18.31 ; Mixed hyperlipidemia E78.2 ; Encounter for general adult medical examination without abnormal findings Z00.00 ; Age-related osteoporosis without current pathological fracture M81.0 and Encounter for screening mammogram for malignant neoplasm of breast Z12.[address] [address] 10/25/2024 Ghadeer Mazloum Acute pain of right knee M25.561 and Pain in right hip M25.[address] [address] 12/18/2024 Ghadeer Mazloum Complaints of memory disturbance R41.[address] [address] 04/05/2025 BELL GUL Essential (primary) hypertension I10 ; Mixed hyperlipidemia E78.2 ; Chronic kidney disease, stage 4 (severe) N18.4 ; Hypertensive chronic kidney disease with stage 1 through stage 4 chronic kidney disease, or unspecified chronic kidney disease I12.9 ; Generalized anxiety disorder F41.1 ; Morbid (severe) obesity due to excess calories E66.01 ; Dietary counseling and surveillance Z71.3 ; Gout, unspecified M10.9 and Polyosteoarthritis, unspecified M15.[address] [place] [address] 06/23/[address] [place] [address] 07/25/2024 BELL GUHi Essential (primary) hypertension I10 [address] [place] [address] 09/05/2024 RAY ROBERTSON Age-related osteoporosis without current pathological fracture M81.[address] [place] [address] 09/06/2024 RAY ROBERTSON Encounter for screen ing mammogram for malignant neoplasm of breast Z12.[address] [place] [address] 10/13/2024 BELL Hi [address] [place] [address] 10/26/2024 Eli Tapia [address] [place] [address] 11/03/2024 BELLJUANITO ROBERTSON Encounter for genera l adult medical examination without abnormal findings Z00.[address] [place] [address] 12/25/2024 RAY ROBERTSON [address] [place] [address] 01/12/2025 RAY ROBERTSON Cardiomegaly I51.[address] [place] [address] 01/24/2025 Eli Tapia [facility] [address] [facility] [address] [place] [address] 02/08/2025 RAY ROBERTSON [address] [place] [address] 02/12/2025 RAY ROBERTSON Complaints of memory disturbance R41.[address] [place] [address] 02/21/[address] [place] [address] 03/30/2025 RAY WILDER Encounter for genera l adult medical examination without abnormal findings Z00.[address] [place] [address] 12/18/2024 RAY ROBERTSON Assessments Encounter Date Diagnosis [...] pills appeared she was seen by our clinical coder Dr. Freeman yesterday and had lab work done. We will check on that otherwise will order a basic metabolic panel and albumin creatinine ratio. continue Coreg continue amlodipine EKG completed today, reviewed by me shows normal sinus rhythm without any acute ST changes heart beat 100 per minute, no bundle-branch block, [id number], evidence of multiple premature ventricular complexes Hyperlipidemia, [...] neoplasm of breast (ICD-10 - Z12.31) 10/25/2024 Pain in right hip (ICD-10 - [...] patient but was available upon request 10/25/2024 Acute pain of right knee (ICD-10 [...] Hematuria. She is getting worked up by Physical Therapy Teacher, she has a CT of abdomen/pelvis coming up this week. General concerns have been discussed I have rendered the services for this patient under direct supervision of Dr. Robertson, who did not see the patient but was available upon request 01/12/2025 Cardiomegaly (ICD-10 - I51.7) 02/12/2025 Complaints of memory disturbance (ICD-10 - R41.3) 03/30/2025 Encounter for general adult medical examination without abnormal findings (ICD-10 - Z00.00) 04/05/2025 Essential (primary) hypertension (ICD-10 - I10) Liana is a 79-year-old lady with CKD stage III and she follows up with Dr. Elizalde, hypertension, hyperlipidemia, mild to moderate memory loss, morbid obesity, generalized anxiety disorder, and gout here for follow-up. She is accompained with her daughter. today. Plan is as follows Hypertension. Blood pressure well controlled on carvedilol 25 mg 1 tablet twice a day, amlodipine 10 mg daily. Low-sodium diet recommended. Mixed hyperlipidemia. Continue atorvastatin 10 mg daily and check lipid panel. Chronic gout. She is on 300 mg 1 tablet daily and check uric acid levels. Generalized anxiety disorder. Stable on Zoloft 25 mg daily. Chronic kidney disease stage 4. She does not appear to be in volume overload. Avoid NSAIDs. She sees Dr. Elizalde on a regular basis. Anemia. Most likely secondary to chronic kidney disease and she is on iron supplements. Multiple joint osteoarthritis. Take Tylenol as needed and she also uses diclofenac sodium gel topical. Morbid obesity. Complications of obesity discussed and advised low calorie, low carbohydrate diet and regular exercise. 04/05/2025 Mixed hyperlipidemia (ICD-10 - E78.2) Liana is a 79-year-old lady with CKD stage III and she follows up with Dr. Elizalde, hypertension, hyperlipidemia, mild to moderate memory loss, morbid obesity, generalized anxiety disorder, and gout here for follow-up. She is accompained with her daughter. today. Plan is as follows Hypertension. Blood pressure well controlled on carvedilol 25 mg 1 tablet twice a day, amlodipine 10 mg daily. Low-sodium diet recommended. Mixed hyperlipidemia. Continue atorvastatin 10 mg daily and check lipid panel. Chronic gout. She is on 300 mg 1 tablet daily and check uric acid levels. Generalized anxiety disorder. Stable on Zoloft 25 mg daily. Chronic kidney disease stage 4. She does not appear to be in volume overload. Avoid NSAIDs. She sees Dr. Elizalde on a regular basis. Anemia. Most likely secondary to chronic kidney disease and she is on iron supplements. Multiple joint osteoarthritis. Take Tylenol as needed and she also uses diclofenac sodium gel topical. Morbid obesity. Complications of obesity discussed and advised low calorie, low carbohydrate diet and regular exercise. 04/05/2025 Chronic kidney disease, stage 4 (severe) (ICD-10 - N18.4) Liana is a 79-year-old lady with CKD stage III and she follows up with Dr. Elizalde, hypertension, hyperlipidemia, mild to moderate memory loss, morbid obesity, generalized anxiety disorder, and gout here for follow-up. She is accompained with her daughter. today. Plan is as follows Hypertension. Blood pressure well controlled on carvedilol 25 mg 1 tablet twice a day, amlodipine 10 mg daily. Low-sodium diet recommended. Mixed hyperlipidemia. Continue atorvastatin 10 mg daily and check lipid panel. Chronic gout. She is on 300 mg 1 tablet daily and check uric acid levels. Generalized anxiety disorder. Stable on Zoloft 25 mg daily. Chronic kidney disease stage 4. She does not appear to be in volume overload. Avoid NSAIDs. She sees Dr. Elizalde on a regular basis. Anemia. Most likely secondary to chronic kidney disease and she is on iron supplements. Multiple joint osteoarthritis. Take Tylenol as needed and she also uses diclofenac sodium gel topical. Morbid obesity. Complications of obesity discussed and advised low calorie, low carbohydrate diet and regular exercise. 09/01/2024 Chronic kidney disease, stage 3a (ICD-10 [...] pills appeared she was seen by our clinical coder Dr. Freeman yesterday and had lab work done. We will check on that otherwise will order a basic metabolic panel and albumin creatinine ratio. continue Coreg continue amlodipine EKG completed today, reviewed by me shows normal sinus rhythm without any acute ST changes heart beat 100 per minute, no bundle-branch block, SQF177, evidence of multiple premature ventricular complexes Hyperlipidemia, [...] pills appeared she was seen by our clinical coder Dr. Freeman yesterday and had lab work done. We will check on that otherwise will order a basic metabolic panel and albumin creatinine ratio. continue Coreg continue amlodipine EKG completed today, reviewed by me shows normal sinus rhythm without any acute ST changes heart beat 100 per minute, no bundle-branch block, UBK509, evidence of multiple premature ventricular complexes Hyperlipidemia, [...] due 2024 Dental exam every 6 months 04/05/2025 Hypertensive chronic kidney disease with stage 1 through stage 4 chronic kidney disease, or unspecified chronic kidney disease (ICD-10 - I12.9) Liana is a 79-year-old lady with CKD stage III and she follows up with Dr. Elizalde, hypertension, hyperlipidemia, mild to moderate memory loss, morbid obesity, generalized anxiety disorder, and gout here for follow-up. She is accompained with her daughter. today. Plan is as follows Hypertension. Blood pressure well controlled on carvedilol 25 mg 1 tablet twice a day, amlodipine 10 mg daily. Low-sodium diet recommended. Mixed hyperlipidemia. Continue atorvastatin 10 mg daily and check lipid panel. Chronic gout. She is on 300 mg 1 tablet daily and check uric acid levels. Generalized anxiety disorder. Stable on Zoloft 25 mg daily. Chronic kidney disease stage 4. She does not appear to be in volume overload. Avoid NSAIDs. She sees Dr. Elizalde on a regular basis. Anemia. Most likely secondary to chronic kidney disease and she is on iron supplements. Multiple joint osteoarthritis. Take Tylenol as needed and she also uses diclofenac sodium gel topical. Morbid obesity. Complications of obesity discussed and advised low calorie, low carbohydrate diet and regular exercise. 04/05/2025 Generalized anxiety disorder (ICD-10 - F41.1) Liana is a 79-year-old lady with CKD stage III and she follows up with Dr. Elizalde, hypertension, hyperlipidemia, mild to moderate memory loss, morbid obesity, generalized anxiety disorder, and gout here for follow-up. She is accompained with her daughter. today. Plan is as follows Hypertension. Blood pressure well controlled on carvedilol 25 mg 1 tablet twice a day, amlodipine 10 mg daily. Low-sodium diet recommended. Mixed hyperlipidemia. Continue atorvastatin 10 mg daily and check lipid panel. Chronic gout. She is on 300 mg 1 tablet daily and check uric acid levels. Generalized anxiety disorder. Stable on Zoloft 25 mg daily. Chronic kidney disease stage 4. She does not appear to be in volume overload. Avoid NSAIDs. She sees Dr. Elizalde on a regular basis. Anemia. Most likely secondary to chronic kidney disease and she is on iron supplements. Multiple joint osteoarthritis. Take Tylenol as needed and she also uses diclofenac sodium gel topical. Morbid obesity. Complications of obesity discussed and advised low calorie, low carbohydrate diet and regular exercise. 09/01/2024 Encounter for general adult medical examination [...] pills appeared she was seen by our clinical coder Dr. Freeman yesterday and had lab work done. We will check on that otherwise will order a basic metabolic panel and albumin creatinine ratio. continue Coreg continue amlodipine EKG completed today, reviewed by me shows normal sinus rhythm without any acute ST changes heart beat 100 per minute, no bundle-branch block, QFT647, evidence of multiple premature ventricular complexes Hyperlipidemia, [...] pills appeared she was seen by our clinical coder Dr. Freeman yesterday and had lab work done. We will check on that otherwise will order a basic metabolic panel and albumin creatinine ratio. continue Coreg continue amlodipine EKG completed today, reviewed by me shows normal sinus rhythm without any acute ST changes heart beat 100 per minute, no bundle-branch block, [id number], evidence of multiple premature ventricular complexes Hyperlipidemia, [...] due 2024 Dental exam every 6 months 04/05/2025 Morbid (severe) obesity due to excess calories (ICD-10 - E66.01) Liana is a 79-year-old lady with CKD stage III and she follows up with Dr. Elizalde, hypertension, hyperlipidemia, mild to moderate memory loss, morbid obesity, generalized anxiety disorder, and gout here for follow-up. She is accompained with her daughter. today. Plan is as follows Hypertension. Blood pressure well controlled on carvedilol 25 mg 1 tablet twice a day, amlodipine 10 mg daily. Low-sodium diet recommended. Mixed hyperlipidemia. Continue atorvastatin 10 mg daily and check lipid panel. Chronic gout. She is on 300 mg 1 tablet daily and check uric acid levels. Generalized anxiety disorder. Stable on Zoloft 25 mg daily. Chronic kidney disease stage 4. She does not appear to be in volume overload. Avoid NSAIDs. She sees Dr. Elizalde on a regular basis. Anemia. Most likely secondary to chronic kidney disease and she is on iron supplements. Multiple joint osteoarthritis. Take Tylenol as needed and she also uses diclofenac sodium gel topical. Morbid obesity. Complications of obesity discussed and advised low calorie, low carbohydrate diet and regular exercise. 04/05/2025 Dietary counseling and surveillance (ICD-10 - Z71.3) Liana is a 79-year-old lady with CKD stage III and she follows up with Dr. Elizalde, hypertension, hyperlipidemia, mild to moderate memory loss, morbid obesity, generalized anxiety disorder, and gout here for follow-up. She is accompained with her daughter. today. Plan is as follows Hypertension. Blood pressure well controlled on carvedilol 25 mg 1 tablet twice a day, amlodipine 10 mg daily. Low-sodium diet recommended. Mixed hyperlipidemia. Continue atorvastatin 10 mg daily and check lipid panel. Chronic gout. She is on 300 mg 1 tablet daily and check uric acid levels. Generalized anxiety disorder. Stable on Zoloft 25 mg daily. Chronic kidney disease stage 4. She does not appear to be in volume overload. Avoid NSAIDs. She sees Dr. Elizalde on a regular basis. Anemia. Most likely secondary to chronic kidney disease and she is on iron supplements. Multiple joint osteoarthritis. Take Tylenol as needed and she also uses diclofenac sodium gel topical. Morbid obesity. Complications of obesity discussed and advised low calorie, low carbohydrate diet and regular exercise. 09/01/2024 Encounter for screening mammogram for malignant [...] pills appeared she was seen by our clinical coder Dr. Freeman yesterday and had lab work done. We will check on that otherwise will order a basic metabolic panel and albumin creatinine ratio. continue Coreg continue amlodipine EKG completed today, reviewed by me shows normal sinus rhythm without any acute ST changes heart beat 100 per minute, no bundle-branch block, [id number], evidence of multiple premature ventricular complexes Hyperlipidemia, [...] due 2024 Dental exam every 6 months 04/05/2025 Gout, unspecified (ICD-10 - M10.9) Liana is a 79-year-old lady with CKD stage III and she follows up with Dr. Elizalde, hypertension, hyperlipidemia, mild to moderate memory loss, morbid obesity, generalized anxiety disorder, and gout here for follow-up. She is accompained with her daughter. today. Plan is as follows Hypertension. Blood pressure well controlled on carvedilol 25 mg 1 tablet twice a day, amlodipine 10 mg daily. Low-sodium diet recommended. Mixed hyperlipidemia. Continue atorvastatin 10 mg daily and check lipid panel. Chronic gout. She is on 300 mg 1 tablet daily and check uric acid levels. Generalized anxiety disorder. Stable on Zoloft 25 mg daily. Chronic kidney disease stage 4. She does not appear to be in volume overload. Avoid NSAIDs. She sees Dr. Elizalde on a regular basis. Anemia. Most likely secondary to chronic kidney disease and she is on iron supplements. Multiple joint osteoarthritis. Take Tylenol as needed and she also uses diclofenac sodium gel topical. Morbid obesity. Complications of obesity discussed and advised low calorie, low carbohydrate diet and regular exercise. 04/05/2025 Polyosteoarthritis , unspecified (ICD-10 - M15.9) Liana is a 79-year-old lady with CKD stage III and she follows up with Dr. Elizalde, hypertension, hyperlipidemia, mild to moderate memory loss, morbid obesity, generalized anxiety disorder, and gout here for follow-up. She is accompained with her daughter. today. Plan is as follows Hypertension. Blood pressure well controlled on carvedilol 25 mg 1 tablet twice a day, amlodipine 10 mg daily. Low-sodium diet recommended. Mixed hyperlipidemia. Continue atorvastatin 10 mg daily and check lipid panel. Chronic gout. She is on 300 mg 1 tablet daily and check uric acid levels. Generalized anxiety disorder. Stable on Zoloft 25 mg daily. Chronic kidney disease stage 4. She does not appear to be in volume overload. Avoid NSAIDs. She sees Dr. Elizalde on a regular basis. Anemia. Most likely secondary to chronic kidney disease and she is on iron supplements. Multiple joint osteoarthritis. Take Tylenol as needed and she also uses diclofenac sodium gel topical. Morbid obesity. Complications of obesity discussed and advised low calorie, low carbohydrate diet and regular exercise. Plan Of Treatment Pending Test Test Name Order Date X ray : Shoulder, right 12/20/2018 Echocardiogram 01/12/2025 Electrocardiogram (EKG) 08/02/2018 Vitamin D, 25-Hydroxy 08/23/2018 MAMMOGRAM, SCREENING 09/06/2024 Bone Density 09/01/2024 MRI : Brain without Contrast 02/12/2025 Mammo: Diagnostic Mammogram Bilateral Xray: Hip Nzosz-Suehtzkr-Yle 2 Vws 10/25 Xray: Limited Knee Right 1 Or 2 Vws 2 09/2024 Future Test Test Name Order Date Basic Metabolic Panel [id number] Next Appt Details Provider Name:Urmila Porras 10/08/2025 11:00:00 AM, [address] [place] [address], [id number], Insurance Providers Payer Name Payer Address Payer Phone Subscriber Number Group Number Insured Name Patient Relationship to Insured Coverage Start Date Coverage End Date [employer] [address] [address] [place] [phone] [id number] GerberLiana Self - patient is the insured Medical [...]
== END 2025-04-17 13:58 | disposition home or self-care (01) ==
LOC: HO.HKAS 13:25
PROVIDERS: PCP Hospitalist; Visit Provider Internal Medicine Nephrology
DX: I10 Essential (primary) hypertension (principal); N25.81 Secondary hyperparathyroidism of renal origin; N18.32 Chronic kidney disease, stage 3b; N20.0 Calculus of kidney; D63.1 Anemia in chronic kidney disease
CPT/HCPCS: 99214

== ENCOUNTER → 2025-04-17 13:24 | Outpatient (BNVA) | payer MEDICARE, SELFPAY | PROVIDERS: PCP Hospitalist; Visit Provider Internal Medicine Nephrology | DX: N18.32 Chronic kidney disease, stage 3b (principal); N25.81 Secondary hyperparathyroidism of renal origin; N20.0 Calculus of kidney; I10 Essential (primary) hypertension; D63.1 Anemia in chronic kidney disease | CPT/HCPCS: 99212 ==